=== PATIENT | female | born 1970 | race Caucasian/White ===

== ENCOUNTER → 2016-11-29 | Outpatient (CLI) | payer BC ==
[2016-11-29 15:09] LABS: Basophils # (A) 0.1 k/uL (0-0.2); Basophils % (A) 1 %; CHCM 34.3; Eosinophils # (A) 0.2 k/uL (0-0.7); Eosinophils % (A) 2 %; HCT 40.8 % (34.0-46.0); HDW 2.93; HGB 13.4 gm/dL (11.4-16.0); Luc # (Auto) 0.23; Luc % (Auto) 2; Lymphocytes # (A) 3.2 k/uL (1.0-4.8); Lymphocytes % (A) 29 %; MCH 29.7 pg (25.0-35.0); MCHC 32.8 g/dL (31.0-37.0); MCV 90.7 fL (80.0-100.0); Mean Platelet Volume 8.1; Monocytes # (A) 0.5 k/uL (0-1.0); Monocytes % (A) 5 %; Neutrophils # (A) 6.7 k/uL (1.3-7.7); Neutrophils % (A) 62 %; RDW 14.8 % (11.5-15.5); WBC 10.9 k/uL (3.8-10.6)
== END | disposition home or self-care (01) ==
LOC: LABPAT 14:50
PROVIDERS: ATTEND Orthopaedic Surgery
DX: Z01.812 Encounter for preprocedural laboratory examination (principal); M65.341 Trigger finger, right ring finger
CPT/HCPCS: 36415; 85025

== ENCOUNTER 2016-12-13 06:30 | Day surgery (SDC) | payer BC ==
[2016-12-11 12:00] VITALS: BMI 34.0
--- NOTE | 2016-12-12 22:19 | HP ---
HISTORY AND PHYSICAL DATE OF SURGERY: 12/13/2016 Cher Urrutia is a 46-year-old patient seen with symptomatic right ring finger trigger finger. We discussed treatment options. She elected to proceed with release A1 robert of the right ring finger. Consent was obtained. PAST MEDICAL HISTORY: 1. Asthma. 2. Hyperlipidemia. 3. Insulin-dependent diabetes. 4. Hypertension. PAST SURGICAL HISTORY: Hysterectomy. DAILY MEDICATIONS: 1. Albuterol. 2. Atorvastatin. 3. Novolin insulin. 4. Lisinopril. ALLERGIES: MORPHINE. SOCIAL HISTORY: Patient denies current tobacco use. PHYSICAL EVALUATION OF THE RIGHT HAND: There is tenderness along the A1 robert area of the right ring finger. There is clicking and catching with range of motion. There is no tenderness of the remaining A1 robert areas. She does have some limited range of motion of the digit. She has good perfusion and sensation distally. RADIOGRAPHS: Radiographs which were obtained of the right hand revealed mild osteoarthritic changes. IMPRESSION: Right ring finger trigger finger. PLAN: Release A1 robert, right ring finger. MMODL / IJN: [id number] /
[~2016-12-13 06:30] MED LIST: DEXAMETHASONE SOD PHOSPHATE 10 MG/ML 1 ML VIAL IV ONE; HYDROmorphone 1 MG/ML 1 ML SYRINGE IVP PRN; LACTATED RINGERS 1,000 ML IV SCH; MIDAZOLAM 2 MG/2 ML VIAL IV PRN; ONDANSETRON 4 MG/2 ML VIAL IVP ONE; SCOPOLAMINE 1.5MG/72HR PATCH TRANSDERM ONE; ceFAZolin 2 GM in SODIUM CHLORIDE 0.9% 100 ML IVPB ONE
[2016-12-13 06:54] VITALS: TEMP 97.7
[2016-12-13] MEDS ORDERED: LIDOCAINE 1% 20 ML VIAL (10MG/ML) FOR IV START INTRADERMA ONE (06:56)
[2016-12-13 07:01] LABS: Glucose,Whole Blood 248 mg/dL (75-99)
[2016-12-13] MEDS ORDERED: INSULIN LISPRO (humaLOG) 300 UNIT/3 ML VIAL SQ ONE (07:06)
[2016-12-13] MEDS ORDERED: BUPIVACAINE (PF) 0.25% 30 ML VIAL SQ ONE ×2 (07:20)
[2016-12-13] MEDS ORDERED: fentaNYL (PF) 50 MCG/ML 2 ML AMP ONE (07:24)
[2016-12-13] MEDS ORDERED: PROPOFOL 10 MG/ML 20 ML VIAL IV ONE (07:24)
[2016-12-13] MEDS ORDERED: MIDAZOLAM 2 MG/2 ML VIAL ONE (07:24)
--- NOTE | 2016-12-13 08:02 | P.OP ---
Date of Procedure: 12/13/16 Preoperative Diagnosis: Right ring finger trigger finger Postoperative Diagnosis: Same Procedure(s) Performed: Release A1 robert right ring finger Implants: Anesthesia: MAC, local Surgeon: Mickey Rose Estimated Blood Loss (ml): 0 Pathology: none sent Condition: stable Disposition: PACU Indications for Procedure: 46-year-old patient seen with a symptomatic right ring finger trigger finger. After having treatment options discussed, she elected to proceed with release A1 robert right ring finger. Operative Findings: She description of procedure Description of Procedure: The patient was taken to the operative suite. The patient received preoperative IV antibiotics. The patient underwent IV sedation by the department anesthesia. A well-padded tourniquet was placed proximal right upper extremity. The right upper extremity was now prepped and draped in the normal sterile orthopedic fashion. I infiltrated the proposed incision site with local analgesic. Once sufficient local analgesia was noted the extremity was elevated and tourniquet insufflated to 250. I now made an incision over the area A1 robert right ring finger. Dissection was taken down to the robert. It was released without difficulty. There was complete release of the A1 robert and good excursion of the tendon without any obvious impingement. The skin margins were proximal nylon suture. Sterile dressings were applied. The tourniquet was released with immediate capillary refill the entire hand and all digits noted. The patient was awakened and transferred to recovery in stable condition.
[2016-12-13 08:05] VITALS: RESP 18
[2016-12-13 08:31] VITALS: BP 104/63; PULSE 80
[2016-12-13 08:39] LABS: Glucose,Whole Blood 238 mg/dL (75-99)
== END 2016-12-13 08:56 | disposition home or self-care (01) ==
LOC: OR 06:30
PROVIDERS: ATTEND Orthopaedic Surgery
DX: M65.341 Trigger finger, right ring finger (principal); J45.909 Unspecified asthma, uncomplicated; E78.5 Hyperlipidemia, unspecified; E11.9 Type 2 diabetes mellitus without complications; I10 Essential (primary) hypertension; Z90.710 Acquired absence of both cervix and uterus; Z79.899 Other long term (current) drug therapy; Z79.4 Long term (current) use of insulin; Z88.5 Allergy status to narcotic agent
CPT/HCPCS: 26055; J2250; J1100; J0690; J2405; J3010; J2704

== ENCOUNTER → 2017-12-05 | Outpatient (CLI) | payer BC ==
--- NOTE | 2017-12-10 11:10 | MM ---
Reason for exam: screening (asymptomatic). Last mammogram was performed 3 years and 4 months ago. History: Patient is postmenopausal and has history of endometrial cancer at age 39. Family history of breast cancer in 2 maternal aunts at age 50. Chemotherapy. Physical Findings: A clinical breast exam by your physician is recommended on an annual basis and results should be correlated with mammographic findings. MG 3D Screening Mammo W/Cad Bilateral CC and MLO view(s) were taken. Prior study comparison: August 11, 2014, bilateral MG screening mammo w CAD. March 26, 2013, bilateral digital screening mammo w/CAD. There are scattered fibroglandular densities. There is chronic nodularity in the right breast. No significant changes when compared with prior studies. ASSESSMENT: Negative, BI-RAD 1 RECOMMENDATION: Routine screening mammogram of both breasts in 1 year.
== END | disposition home or self-care (01) ==
LOC: RADMAMWWP 12:55
PROVIDERS: ATTEND Obstetrics & Gynecology
DX: Z12.31 Encounter for screening mammogram for malignant neoplasm of breast (principal)
CPT/HCPCS: 77063; 77067

== ENCOUNTER → 2019-02-06 | Outpatient (CLI) | payer BC ==
--- NOTE | 2019-02-06 11:08 | XR ---
EXAMINATION TYPE: XR hand limited bilateral DATE OF EXAM: 02/06/2019 COMPARISON: NONE HISTORY: Pain TECHNIQUE: Three views each hand is submitted. FINDINGS: Left ankle there is diffuse osteopenia. Mild narrowing of the PIP and DIP joint of the fourth and fif th digits and MCP joint of the fifth digit. Benign-appearing cyst involving the lunate bone. Mild fani rowing of the radiocarpal joint. No erosive changes. Right hand: Mild narrowing of the radiocarpal joint. Osseous structures intact. No erosive changes. IMPRESSION: 1. Mild arthropathy bilaterally with no erosive changes or acute fracture.
== END | disposition home or self-care (01) ==
LOC: RADXRMAIN 10:46
PROVIDERS: ATTEND Orthopaedic Surgery
DX: M19.041 Primary osteoarthritis, right hand (principal); M19.042 Primary osteoarthritis, left hand

== ENCOUNTER → 2019-02-23 | Outpatient (CLI) | payer BC ==
[2019-02-23 11:41] LABS: Basophils # (A) 0.1 k/uL (0-0.2); Basophils % (A) 1 %; Eosinophils # (A) 0.3 k/uL (0-0.7); Eosinophils % (A) 2 %; HCT 40.4 % (34.0-46.0); HGB 13.7 gm/dL (11.4-16.0); Lymphocytes % (A) 25 %; MCH 29.3 pg (25.0-35.0); MCHC 33.9 g/dL (31.0-37.0); MCV 86.5 fL (80.0-100.0); Mean Platelet Volume 5.7; Monocytes # (A) 0.5 k/uL (0-1.0); Monocytes % (A) 4 %; Neutrophils # (A) 7.9 k/uL (1.3-7.7); Neutrophils % (A) 66 %; Platelet Count 263 k/uL (150-450); RBC 4.67 m/uL (3.80-5.40); WBC 11.9 k/uL (3.8-10.6)
[2019-02-23 11:43] LABS: Potassium 4.5 mmol/L (3.5-5.1)
== END | disposition home or self-care (01) ==
LOC: LABPAT 10:32
PROVIDERS: ATTEND Orthopaedic Surgery
DX: Z01.812 Encounter for preprocedural laboratory examination (principal); M65.342 Trigger finger, left ring finger
CPT/HCPCS: 36415; 80051; 85025

== ENCOUNTER 2019-03-18 06:27 | Day surgery (SDC) | payer BC ==
[2019-03-17 08:59] VITALS: BMI 34.0
--- NOTE | 2019-03-17 18:30 | HP ---
HISTORY AND PHYSICAL REASON FOR ADMISSION: Surgery is scheduled for 03/18/2019. HISTORY OF PRESENT ILLNESS: Cher Urrutia is a 48-year-old patient seen with symptomatic left ring finger trigger finger. We discussed options. She elected to proceed with release A1 robert, left ring finger. Consent was obtained. PAST MEDICAL HISTORY: [id number] diabetes. Gastroesophageal reflux disease. Hypertension. PAST SURGICAL HISTORY: Hysterectomy. MEDICATIONS: Atorvastatin, insulin, lisinopril. ALLERGIES: MORPHINE. SOCIAL HISTORY: She denies current tobacco use. PHYSICAL EXAMINATION: Physical evaluation of the left hand: She is tender along the A1 robert of the ring finger. There is clicking and catching with range of motion there. She has good perfusion sensation distally. Carpal compression, carpal Tinel's are negative. RADIOGRAPHS: Radiographs of the left hand reveals some osteoarthritic changes. IMPRESSION: 1. Left ring finger trigger finger. 2. Insulin-dependent diabetes. 3. Hypertension. PLAN: Release A1 robert, left ring finger. Surgery is scheduled for 03/18/2019. MMODL / IJN: [id number] /
[~2019-03-18 06:27] MED LIST changes: +HYDROmorphone 0.5 MG/0.5 ML SYRINGE IVP PRN; -HYDROmorphone 1 MG/ML 1 ML SYRINGE IVP PRN; +LIDOCAINE 1% 20 ML VIAL (10MG/ML) FOR IV START INTRADERMA PRN; -ceFAZolin 2 GM in SODIUM CHLORIDE 0.9% 100 ML IVPB ONE
[2019-03-18 06:51] VITALS: RESP 16; TEMP 97.8
[2019-03-18 06:56] LABS: Glucose,Whole Blood 239 mg/dL (75-99)
[2019-03-18] MEDS ORDERED: INSULIN ASPART (NovoLOG) 100 UNIT/ML VIAL SQ ONE (07:08)
[2019-03-18] MEDS ORDERED: PROPOFOL 10 MG/ML 20 ML VIAL IV ONE (07:26)
[2019-03-18] MEDS ORDERED: fentaNYL (PF) 50 MCG/ML 2 ML AMP ONE (07:26)
[2019-03-18] MEDS ORDERED: MIDAZOLAM 2 MG/2 ML VIAL ONE (07:26)
[2019-03-18] MEDS ORDERED: BUPIVACAINE (PF) 0.25% 30 ML VIAL SQ ONE (07:44)
--- NOTE | 2019-03-18 08:06 | P.OP ---
Date of Procedure: 03/18/19 Preoperative Diagnosis: Left ring finger trigger finger Postoperative Diagnosis: Left ring finger trigger finger Procedure(s) Performed: Release A1 robert left ring finger Anesthesia: MAC, local Surgeon: Mickey Rose Estimated Blood Loss (ml): 0 Pathology: none sent Condition: stable Disposition: PACU Indications for Procedure: 48-year-old patient seen with symptomatic left ring finger trigger finger. We discussed options. She elected to proceed with release A1 robert left ring finger. Operative Findings: See description of procedure Description of Procedure: Patient was taken to the operative suite. The patient received preoperative IV antibiotics. Well-padded tourniquet placed proximal left upper extremity. Left upper extremity was prepped and draped in the normal sterile orthopedic fashion. The proposed incision area was infiltrated with 1% Marcaine totaling 7 mL. Once sufficient local analgesia was noted the extremity was elevated and tourniquet insufflated to 250. An incision measuring approximately 1 cm was now made in the area 1 robert left ring finger. Careful dissection taken down to the A1 robert. They will portal was now released. There was good excursion of the tendon with no impingement or triggering/catching. There was good hemostasis. The skin margins were approximated nylon suture. Sterile dressings were applied. The tourniquet was released and immediate capillary refill the entire extremity and digits noted. The patient was now awakened, transferred to a bed and recovery stable condition.
[2019-03-18 08:37] VITALS: BP 109/75; PULSE 92
== END 2019-03-18 08:49 | disposition home or self-care (01) ==
LOC: OR 06:27
PROVIDERS: ATTEND Orthopaedic Surgery
DX: M65.342 Trigger finger, left ring finger (principal); E11.9 Type 2 diabetes mellitus without complications; I10 Essential (primary) hypertension; K21.9 Gastro-esophageal reflux disease without esophagitis; F17.290 Nicotine dependence, other tobacco product, uncomplicated; Z88.5 Allergy status to narcotic agent; Z88.2 Allergy status to sulfonamides; Z79.899 Other long term (current) drug therapy; Z79.4 Long term (current) use of insulin; Z90.710 Acquired absence of both cervix and uterus; Z98.890 Other specified postprocedural states; Z85.9 Personal history of malignant neoplasm, unspecified
CPT/HCPCS: 26055; J2250; J1100; J2405; J0690; J3010; J2704

== ENCOUNTER → 2019-05-28 | Outpatient (CLI) | payer BC ==
[2019-05-28 17:28] LABS: Basophils # (A) 0.1 k/uL (0-0.2); Basophils % (A) 1 %; Eosinophils # (A) 0.3 k/uL (0-0.7); Eosinophils % (A) 3 %; HCT 40.8 % (34.0-46.0); HGB 13.5 gm/dL (11.4-16.0); Lymphocytes # (A) 2.9 k/uL (1.0-4.8); Lymphocytes % (A) 22 %; MCH 28.3 pg (25.0-35.0); MCHC 33.1 g/dL (31.0-37.0); MCV 85.5 fL (80.0-100.0); Mean Platelet Volume 7.4; Monocytes # (A) 0.6 k/uL (0-1.0); Monocytes % (A) 4 %; Neutrophils # (A) 9.1 k/uL (1.3-7.7); Neutrophils % (A) 69 %; Platelet Count 260 k/uL (150-450); RBC 4.77 m/uL (3.80-5.40); RDW 13.4 % (11.5-15.5); WBC 13.2 k/uL (3.8-10.6)
== END | disposition home or self-care (01) ==
LOC: LABPAT 16:25
PROVIDERS: ATTEND Orthopaedic Surgery
DX: Z01.812 Encounter for preprocedural laboratory examination (principal); G56.02 Carpal tunnel syndrome, left upper limb
CPT/HCPCS: 85025

== ENCOUNTER 2019-06-04 11:53 | Day surgery (SDC) | payer BC ==
[2019-06-02 16:25] VITALS: BMI 34.0
--- NOTE | 2019-06-03 15:22 | HP ---
HISTORY AND PHYSICAL DATE OF SURGERY: 06/04/2019 Cher Urrutia is a 49-year-old patient seen with symptomatic left carpal tunnel syndrome. We discussed options. She elected to proceed with decompression of the left median nerve. Consent regarding the procedure was obtained. PAST MEDICAL HISTORY: Asthma, hyperlipidemia, insulin-dependent diabetes, hypertension. PAST SURGICAL HISTORY: Hysterectomy, trigger finger release. DAILY MEDICATIONS: Albuterol, atorvastatin, insulin, lisinopril. ALLERGIES: MORPHINE WHICH CAUSES GASTROINTESTINAL UPSET. SOCIAL HISTORY: She denies tobacco use. PHYSICAL EXAMINATION OF THE LEFT HAND: She has a positive carpal compression, carpal Tinel's causing numbness and tingling throughout the median nerve distribution. She has no tenderness along the A1 robert sites. There is good perfusion distally. There is a good radial pulse present. She does have some decreased sensation throughout the median nerve distribution. IMPRESSION: 1. Left carpal tunnel syndrome. 2. Hypertension. 3. Hyperlipidemia. 4. Insulin-dependent diabetes. PLAN: Decompression left medial nerve. MMODL / IJN: [id number] /
[~2019-06-04 11:53] MED LIST changes: -MIDAZOLAM 2 MG/2 ML VIAL IV PRN; -SCOPOLAMINE 1.5MG/72HR PATCH TRANSDERM ONE
[2019-06-04 12:28] LABS: Glucose,Whole Blood 321 mg/dL (75-99)
[2019-06-04 12:35] VITALS: RESP 16; TEMP 98.1
[2019-06-04] MEDS ORDERED: INSULIN ASPART (NovoLOG) 100 UNIT/ML VIAL SQ ONE (12:40)
[2019-06-04] MEDS ORDERED: KETAMINE 10 MG/ML 20 ML VIAL ONE (13:03)
[2019-06-04] MEDS ORDERED: MIDAZOLAM 2 MG/2 ML VIAL ONE (13:03)
[2019-06-04] MEDS ORDERED: PROPOFOL 10 MG/ML 20 ML VIAL IV ONE (13:03)
[2019-06-04] MEDS ORDERED: fentaNYL (PF) 50 MCG/ML 2 ML AMP ONE (13:03)
[2019-06-04] MEDS ORDERED: KETOROLAC 30 MG/ML 1 ML VIAL ONE (13:03)
[2019-06-04] MEDS ORDERED: BUPIVACAINE (PF) 0.25% 30 ML VIAL SQ ONE (13:08)
[2019-06-04] MEDS ORDERED: LACTATED RINGERS 1,000 ML IV ONE (13:22)
--- NOTE | 2019-06-04 13:37 | P.OP ---
Date of Procedure: 06/04/19 Preoperative Diagnosis: Left carpal tunnel syndrome Postoperative Diagnosis: Left carpal tunnel syndrome Procedure(s) Performed: Decompression left median nerve Anesthesia: MAC, local Surgeon: Mickey Rose Estimated Blood Loss (ml): 1 Pathology: none sent Condition: stable Disposition: PACU Indications for Procedure: 49-year-old patient seen with symptomatic left carpal tunnel syndrome. After having treatment options discussed, she elected to proceed with decompression left median nerve. Operative Findings: See description of procedure Description of Procedure: The patient was taken to the operative suite. The patient received preoperative IV antibiotics. A well-padded tourniquet was placed on the proximal left upper extremity. The left upper extremity was prepped and draped in the normal sterile orthopedic fashion. I infiltrated the proposed incision site with 10 mL quarter percent plain Marcaine. Once sufficient local analgesia was noted the extremity was elevated and the tourniquet was insufflated to 250. I made an incision beginning at the distal volar wrist crease extending distally approximately 3 cm in line with the fourth metacarpal sharply through skin. I dissected through the palmar fascia to the transverse carpal ligament. I made small incisions the central portion of transcarpal ligament. I now completed the release proximally and distally with blunt Metzenbaums. There was complete release of the transverse carpal ligament. There was good decompression of the median nerve. We had good hemostasis. The wound was irrigated. The skin margins were proximal nylon suture. I applied sterile dressings. The tourniquet was released with immediate capillary refill of all digits noted. The patient was then transferred to a bed and then recovery stable condition.
[2019-06-04 13:58] LABS: Glucose,Whole Blood 262 mg/dL (75-99)
[2019-06-04 14:34] VITALS: BP 136/86; PULSE 97
== END 2019-06-04 14:55 | disposition home or self-care (01) ==
LOC: OR 11:53
PROVIDERS: ATTEND Orthopaedic Surgery
DX: G56.02 Carpal tunnel syndrome, left upper limb (principal); I10 Essential (primary) hypertension; E11.9 Type 2 diabetes mellitus without complications; J45.909 Unspecified asthma, uncomplicated; E78.5 Hyperlipidemia, unspecified; Z79.4 Long term (current) use of insulin; Z79.899 Other long term (current) drug therapy; Z88.5 Allergy status to narcotic agent; Z90.710 Acquired absence of both cervix and uterus; Z98.890 Other specified postprocedural states
CPT/HCPCS: 64721; J2250; J1100; J2405; J0690; J3010; J1885; J2704

== ENCOUNTER → 2021-01-05 | Outpatient (CLI) | payer BC ==
--- NOTE | 2021-01-09 10:54 | MM ---
Reason for exam: screening (asymptomatic). Last mammogram was performed 3 years and 1 month ago. History: Patient is postmenopausal and has history of endometrial cancer at age 39. Family history of breast cancer in 2 maternal aunts at age 50. Chemotherapy. Physical Findings: A clinical breast exam by your physician is recommended on an annual basis and results should be correlated with mammographic findings. MG 3D Screening Mammo W/Cad Bilateral CC and MLO view(s) were taken. Prior study comparison: December 05, 2017, bilateral MG 3d screening mammo w/cad. August 11, 2014, bilateral MG screening mammo w CAD. Finding: There are four typically benign coarse heterogeneous, grouped/clustered calcifications in the left breast. New finding since December 05, 2017 and August 11, 2014. ASSESSMENT: Probably benign, BI-RAD 3 RECOMMENDATION: Follow-up diagnostic mammogram of the left breast in 6 months.
== END | disposition home or self-care (01) ==
LOC: RADMAMWWP 13:32
PROVIDERS: ATTEND Obstetrics & Gynecology
DX: Z12.31 Encounter for screening mammogram for malignant neoplasm of breast (principal); Z78.0 Asymptomatic menopausal state; Z80.3 Family history of malignant neoplasm of breast
CPT/HCPCS: 77063; 77067

== ENCOUNTER → 2021-07-06 | Outpatient (CLI) | payer BC ==
--- NOTE | 2021-07-17 13:17 | MM ---
Reason for exam: additional evaluation requested from prior study. Last mammogram was performed 6 months ago. History: Patient is postmenopausal and has history of endometrial cancer at age 39. Family history of breast cancer in 2 maternal aunts at age 50. Chemotherapy. Radiation therapy. Physical Findings: A clinical breast exam by your physician is recommended on an annual basis and results should be correlated with mammographic findings. MG 3D Diag Mammo W/Cad LT CC and MLO view(s) were taken of the left breast. Prior study comparison: January 05, 2021, bilateral MG 3d screening mammo w/cad. December 05, 2017, bilateral MG 3d screening mammo w/cad. There are scattered fibroglandular densities. 3 o'clock central left breast microcalcifications appear even more course and have further increased. Likely early dystrophic calcifications. Ongoing follow up recommended. ASSESSMENT: Probably benign, BI-RAD 3 RECOMMENDATION: Follow-up diagnostic mammogram of both breasts in 6 months.
== END | disposition home or self-care (01) ==
LOC: RADMAMWWP 13:18
PROVIDERS: ATTEND Obstetrics & Gynecology
DX: R92.8 Other abnormal and inconclusive findings on diagnostic imaging of breast (principal); Z78.0 Asymptomatic menopausal state; Z80.3 Family history of malignant neoplasm of breast; Z92.3 Personal history of irradiation
CPT/HCPCS: 77061; 77065

== ENCOUNTER → 2022-02-13 | Outpatient (CLI) | payer BC ==
--- NOTE | 2022-02-13 13:28 | MM ---
Reason for Exam: Follow-up at short interval from prior study. Last mammogram was performed 1 year(s) and 2 month(s) ago. Indicated Problems: Pain of the left side (Global) for 4 Month(s). Patient History: Menarche at age 9. First Full-Term at age 20. Left ovary removed at age 39. Right ovary removed at age 39. Hysterectomy at age 39. Postmenopausal. Endometrial cancer, age 39. Patient used Hormonal Contraceptives for 12 years. Radiation Therapy. Chemotherapy. Maternal aunt had breast cancer, age 50. Maternal aunt had breast cancer, age 50. Risk Values: Ignacia 5 year model risk: 1.0%. NCI Lifetime model risk: 8.5%. Prior Study Comparison: 12/29/2010 Bilateral Diagnostic Mammogram, [facility]. 08/11/2014 Bilateral Screening Mammogram, [facility]. 12/05/2017 Bilateral Screening Mammogram, [facility]. 01/05/2021 Bilateral Screening Mammogram, [facility]. 07/06/2021 Left Diagnostic Mammogram, [facility]. Tissue Density: There are scattered fibroglandular densities. Findings: Analyzed By CAD. Pattern appears symmetrical and stable. There are increasing benign appearing grouped coarse calcifications within the lateral 3:00 posterior position left breast. A marker is placed over the location of the patient's discomfort in the left breast which is lateral mid left breast. Overall Assessment: Benign, BI-RAD 2 Management: Screening Mammogram of both breasts in 1 year. A clinical breast exam by your physician is recommended on an annual basis and results should be correlated with mammographic findings. This exam should not preclude additional follow-up of suspicious palpable abnormalities. Results were given to the patient verbally at the time of exam. Electronically signed and approved by: Gerry Reilly D.O. Radiologis
== END | disposition home or self-care (01) ==
LOC: RADMAMWWP 12:49
PROVIDERS: ATTEND Physician Assistant
DX: R92.8 Other abnormal and inconclusive findings on diagnostic imaging of breast (principal); Z80.3 Family history of malignant neoplasm of breast; Z78.0 Asymptomatic menopausal state
CPT/HCPCS: 77062; 77066

== ENCOUNTER 2022-03-28 09:04 | Inpatient (IN) | payer BC ==
[2022-03-28] MEDS ORDERED: HYDROmorphone 1 MG/ML 1 ML SYRINGE IVP STA (09:58)
--- NOTE | 2022-03-28 10:01 | ED ---
General Adult HPI - General Chief complaint: Abdominal Pain Stated complaint: Abd & Back Pain, Cancer Pt. Time Seen by Provider: 03/28/22 09:26 Source: patient Mode of arrival: ambulatory Limitations: no limitations - History of Present Illness Initial comments: Dictation was produced using [employer] dictation software. please excuse any grammatical, word or spelling errors. Chief Complaint: 51-year-old female presents to the emergency department for abdominal pain, nausea and vomiting History of Present Illness: Just 51-year-old female she has past medical history of cancer. Patient is history of cancer is being treated with oral chemotherapy pills. Her oncologist is based out of [facility]. For the last 2-3 days she's been having abdominal pain. She states that it is epigastric in location. States intermittent. Cells associated with nausea and vomiting. Patient has any fever or constitutional symptoms. She recently had a computed tomography scan that showed a new mass in her right abdomen. States that her emesis is bilious. Nonbloody The ROS documented in this emergency department record has been reviewed and confirmed by me. Those systems with pertinent positive or negative responses have been documented in the HPI. All other systems are other negative and/or noncontributory. PHYSICAL EXAM: General Impression: Alert and oriented x3, not in acute distress HEENT: Normocephalic atraumatic, extra-ocular movements intact, pupils equal and reactive to light bilaterally, mucous membranes moist. Cardiovascular: Heart regular rate and rhythm Chest: Able to complete full sentences, no retractions, no tachypnea Abdomen: abdomen soft, mild palpatory tenderness to the epigastrium, non-disten ded, no organomegaly Musculoskeletal: Pulses present and equal in all extremities, no peripheral fuentes ma Motor: no focal deficits noted Neurological: CN II-XII grossly intact, no focal motor or sensory deficits noted Skin: Intact with no visualized rashes Psych: Normal affect and mood ED course: 51-year-old female past medical history of cancer recently diagnosed abdominal mass presents to the ER for new onset abdominal pain, nausea and vomiting. Suspicious for bowel obstruction. Signs upon arrival are within acceptable limits. Nursing notes and chart review was performed My EKG interpretation: Ventricular rate 96, sinus rhythm,. Interval 145, QRS 82, QTC 393. No NV prolongation, no QTC prolongation, no ST or T-wave changes noted. Overall, this EKG is unremarkable Laboratory evaluation obtained showed leukocytosis 17.6. Coag panel is negative. Metabolic panel was within acceptable limits. Urinalysis is positive for 3+ ketones. Likely some degree of ketoacidosis from dehydration. Computed tomography scan of the abdomen and pelvis shows cholelithiasis with mild gallbladder wall thickening. This appeared to be gallbladder distention as well. Suspicious for acute cholecystitis. Ultrasound was ordered showing cholelithiasis with gallbladder wall at the upper limits of normal. Given patient's white count with epigastric and right upper quadrant pain there is concern for acute cholecystitis. Case discussed with Dr. Alcantara request the patient be admitted to medicine with IV antibiotics and Gen. surgery on consult. - Related Data Home Medications Medication Instructions Recorded Confirmed Insulin Aspart [NovoLOG Flexpen] 5 - 10 units SQ AC-TID 06/02/19 03/28/22 Atorvastatin [Lipitor] 20 mg PO PC-SUPPER 03/28/22 03/28/22 Cholecalciferol [Vitamin D3 (25 50 mcg PO DAILY 03/28/22 03/28/22 Mcg = 1000 Iu)] Empagliflozin [Jardiance] 25 mg PO DAILY 03/28/22 03/28/22 Insulin Glargine,Hum.rec.anlog 20 units SQ HS 03/28/22 03/28/22 [Lantus Solostar Pen] Lenvatinib Mesylate [Lenvima] 10 mg PO DAILY 03/28/22 03/28/22 Omeprazole [PriLOSEC] 20 mg PO DAILY 03/28/22 03/28/22 Pioglitazone [Actos] 15 mg PO DAILY 03/28/22 03/28/22 lisinopriL [Prinivil] 20 mg PO DAILY 03/28/22 03/28/22 Allergies Allergy/AdvReac Type Severity Reaction Status Date / Time diatrizoate meglumine Allergy Diarrhea Verified 03/28/22 13:08 (FROM GASTROGRAPHIN) morphine Allergy Nausea & Verified 03/28/22 13:08 Vomiting Blue tape Allergy blisters Uncoded 03/28/22 09:25 where tape applied to skin Review of Systems ROS Statement: Those systems with pertinent positive or pertinent negative responses have been documented in the HPI. ROS Other: All systems not noted in ROS Statement are negative. 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 THYROID NODULES. SHOULDER PROB, RT WORSE. RT RING TRIGGER FINGER. History of Any Multi-Drug Resistant Organisms: None Reported Past Surgical History: Section, Hernia Repair, Hysterectomy, Tonsillectomy Additional Past Surgical History / Comment(s): Nixon Trigger thumb surgery. Radical hysterectomy, rt ring finger,rt middle finger,lt pointer finger 03/25 Past Anesthesia/Blood Transfusion Reactions: No Reported Reaction, Family Hi story of Problems w/ Anesthesia, Motion Sickness Additional Past Anesthesia/Blood Transfusion Reaction / Comment(s): SIBLINGS HAVE PONV. pt claustrophobic. Past Psychological History: Anxiety, Depression Smoking Status: Never smoker Past Alcohol Use History: Occasional Past Drug Use History: None Reported - Past Family History Mother Family Medical History: Diabetes Mellitus Additional Family Medical History / Comment(s): heart valve replaced Father Family Medical History: Cancer Additional Family Medical History / Comment(s): prostate cancer General Exam Limitations: no limitations Course Vital Signs 03/28/22 03/28/22 03/28/22 09:22 10:05 13:16 Temperature 98.3 F Pulse Rate 104 H 110 H 105 H Respiratory 22 18 16 Rate Blood Pressure 132/79 150/95 146/92 O2 Sat by Pulse 91 L 92 L 93 L Oximetry Medical Decision Making - Lab Data Result diagrams: 03/28/22 09:50 03/28/22 09:50 Lab Results 03/28/22 03/28/22 03/28/22 Range/Units 09:50 09:50 09:50 WBC 17.6 H (3.8-10.6) k/uL RBC 5.23 (3.80-5.40) m/uL Hgb 16.0 (11.4-16.0) gm/dL Hct 47.1 H (34.0-46.0) % MCV 90.0 (80.0-100.0) fL MCH 30.6 (25.0-35.0) pg MCHC 34.0 (31.0-37.0) g/dL RDW 14.3 (11.5-15.5) % Plt Count 167 (150-450) k/uL MPV 8.4 Neutrophils % 89 % Lymphocytes % 5 % Monocytes % 4 % Eosinophils % 1 % Basophils % 0 % Neutrophils # 15.6 H (1.3-7.7) k/uL Lymphocytes # 0.9 L (1.0-4.8) k/uL Monocytes # 0.7 (0-1.0) k/uL Eosinophils # 0.1 (0-0.7) k/uL Basophils # 0.1 (0-0.2) k/uL PT 9.9 (9.0-12.0) sec INR 0.9 (<1.2) APTT 25.8 (22.0-30.0) sec Sodium (137-145) mmol/L Potassium (3.5-5.1) mmol/L Chloride (98-107) mmol/L Carbon Dioxide (22-30) mmol/L Anion Gap mmol/L BUN (7-17) mg/dL Creatinine (0.52-1.04) mg/dL Est GFR (CKD-EPI)AfAm (>60 ml/min/1.73 sqM) Est GFR (CKD-EPI)NonAf (>60 ml/min/1.73 sqM) Glucose (74-99) mg/dL Plasma Lactic Acid Alec (0.7-2.0) mmol/L Calcium (8.4-10.2) mg/dL Total Bilirubin (0.2-1.3) mg/dL AST (14-36) U/L ALT (4-34) U/L Alkaline Phosphatase (38-126) U/L Total Protein (6.3-8.2) g/dL Albumin (3.5-5.0) g/dL Lipase (23-300) U/L Urine Color Light Yellow Urine Appearance Clear (Clear) Urine pH 6.0 (5.0-8.0) Ur Specific [place] 1.035 (1.001-1.035) Urine Protein Trace H (Negative) Urine Glucose (UA) 4+ H (Negative) Urine Ketones 3+ H (Negative) Urine Blood Negative (Negative) Urine Nitrite Negative (Negative) Urine Bilirubin Negative (Negative) Urine Urobilinogen <2.0 (<2.0) mg/dL Ur Leukocyte Esterase Negative (Negative) 03/28/22 03/28/22 Range/Units 09:50 09:50 WBC (3.8-10.6) k/uL RBC (3.80-5.40) m/uL Hgb (11.4-16.0) gm/dL Hct (34.0-46.0) % MCV (80.0-100.0) fL MCH (25.0-35.0) pg MCHC (31.0-37.0) g/dL RDW (11.5-15.5) % Plt Count (150-450) k/uL MPV Neutrophils % % Lymphocytes % % Monocytes % % Eosinophils % % Basophils % % Neutrophils # (1.3-7.7) k/uL Lymphocytes # (1.0-4.8) k/uL Monocytes # (0-1.0) k/uL Eosinophils # (0-0.7) k/uL Basophils # (0-0.2) k/uL PT (9.0-12.0) sec INR (<1.2) APTT (22.0-30.0) sec Sodium 135 L (137-145) mmol/L Potassium 4.6 (3.5-5.1) mmol/L Chloride 101 (98-107) mmol/L Carbon Dioxide 23 (22-30) mmol/L Anion Gap 11 mmol/L BUN 13 (7-17) mg/dL Creatinine 0.49 L (0.52-1.04) mg/dL Est GFR (CKD-EPI)AfAm >90 (>60 ml/min/1.73 sqM) Est GFR (CKD-EPI)NonAf >90 (>60 ml/min/1.73 sqM) Glucose 127 H (74-99) mg/dL Plasma Lactic Acid Alec 1.3 (0.7-2.0) mmol/L Calcium 9.0 (8.4-10.2) mg/dL Total Bilirubin 0.9 (0.2-1.3) mg/dL AST 35 (14-36) U/L ALT 22 (4-34) U/L Alkaline Phosphatase 105 (38-126) U/L Total Protein 7.5 (6.3-8.2) g/dL Albumin 4.5 (3.5-5.0) g/dL Lipase 24 (23-300) U/L Urine Color Urine Appearance (Clear) Urine pH (5.0-8.0) Ur Specific [place] (1.001-1.035) Urine Protein (Negative) Urine Glucose (UA) (Negative) Urine Ketones (Negative) Urine Blood (Negative) Urine Nitrite (Negative) Urine Bilirubin (Negative) Urine Urobilinogen (<2.0) mg/dL Ur Leukocyte Esterase (Negative) Disposition Clinical Impression: Acute cholecystitis Disposition: ADMITTED IP TO THIS HOSP Condition: Fair Referrals: Damien Rodriguez MD [Primary Care Provider] - 1-2 days Decision Time: 13:32
[2022-03-28 10:22] LABS: Appearance,Urine Clear (Clear); Bilirubin,Urine Negative (Negative); Blood,Urine Negative (Negative); Color,Urine Light Yellow; Glucose,Urine (UA) 4+ (Negative); Leukocyte Esterase,Urine Negative (Negative); Nitrite,Urine Negative (Negative); Protein,Urine Trace (Negative); Specific Gravity,Urine 1.035 (1.001-1.035); Urobilinogen,Urine <2.0 mg/dL (<2.0)
[2022-03-28 10:27] LABS: Basophils # (A) 0.1 k/uL (0-0.2); Basophils % (A) 0 %; Eosinophils # (A) 0.1 k/uL (0-0.7); Eosinophils % (A) 1 %; HCT 47.1 % (34.0-46.0); Lymphocytes # (A) 0.9 k/uL (1.0-4.8); Lymphocytes % (A) 5 %; MCH 30.6 pg (25.0-35.0); Mean Platelet Volume 8.4; Monocytes # (A) 0.7 k/uL (0-1.0); Monocytes % (A) 4 %; Neutrophils # (A) 15.6 k/uL (1.3-7.7); Neutrophils % (A) 89 %; Platelet Count 167 k/uL (150-450); RBC 5.23 m/uL (3.80-5.40); RDW 14.3 % (11.5-15.5); WBC 17.6 k/uL (3.8-10.6)
[2022-03-28 10:28] LABS: ALT 22 U/L (4-34); AST 35 U/L (14-36); African American GFR (CKD) >90 (>60 ml/min/1.73 sqM); Albumin 4.5 g/dL (3.5-5.0); Alkaline Phosphatase 105 U/L (38-126); Anion Gap 11 mmol/L; Blood Urea Nitrogen 13 mg/dL (7-17); Carbon Dioxide 23 mmol/L (22-30); Chloride 101 mmol/L (98-107); Glucose 127 mg/dL (74-99); Lipase 24 U/L (23-300); Non-African American GFR(CKD) >90 (>60 ml/min/1.73 sqM); Potassium 4.6 mmol/L (3.5-5.1); Sodium 135 mmol/L (137-145); Total Bilirubin 0.9 mg/dL (0.2-1.3); Total Protein 7.5 g/dL (6.3-8.2)
[2022-03-28 10:36] LABS: INR 0.9 (<1.2); Partial Thromboplastin Time 25.8 sec (22.0-30.0); Prothrombin Time 9.9 sec (9.0-12.0)
[2022-03-28] MEDS ORDERED: ONDANSETRON 4 MG/2 ML VIAL IVP STA (10:58)
--- NOTE | 2022-03-28 11:18 | CT ---
EXAMINATION TYPE: CT abdomen pelvis w con DATE OF EXAM: 03/28/2022 COMPARISON: 11/25/2014 HISTORY: Abdominal and back pain with vomiting CT DLP: 1061.9 mGycm CONTRAST: CT scan of the abdomen and pelvis is performed without Oral Contrast and with IV Contrast, patient in jected with 100 ml mL of Isovue 300. FINDINGS: LUNG BASES-: No visible nodule. No infiltrate. LIVER/GB: There is evidence of cholelithiasis. Mild gallbladder wall thickening. Gallbladder distenti on at 8.3 cm. Mild stranding adjacent to the gallbladder seen best on coronal image 50 sequence 202. No space occupying hepatic lesion. Biliary tree is of normal caliber. PANCREAS: No inflammation. No distinct mass. SPLEEN: No splenic enlargement. No lesion seen. ADRENALS: No nodule. No thickening. KIDNEYS/BLADDER: No hydronephrosis. No nephrolithiasis. No distinct renal mass. Urinary bladder g rossly unremarkable. BOWEL: Normal appendix. Thickened proximal jejunal loops which are mildly distended however not dilat ed measuring up to 2.8 cm. The findings could reflect enteritis. Normalization of the distal jejunum and ileum. The colon is of normal caliber. GENITAL ORGANS: No gross abnormality. LYMPH NODES: No greater than 1cm abdominal or pelvic lymph nodes are appreciated. AORTA: No significant abnormality. OSSEOUS STRUCTURES: No significant abnormality is seen. OTHER: IVC filter is noted to be in place. IMPRESSION: 1. Correlate for acute cholecystitis. 2. Jejunal enteritis is not excluded.
[2022-03-28 11:49] LABS: Ketones,Urine 3+ (Negative)
--- NOTE | 2022-03-28 12:46 | US ---
EXAMINATION TYPE: US gallbladder DATE OF EXAM: 03/28/2022 COMPARISON: CT CLINICAL HISTORY: epigastric pain. Epigastric pain, history of hernia surgery. TECHNIQUE: Multiple sonographic images of the right upper quadrant are obtained. FINDINGS: EXAM MEASUREMENTS: Liver Length: 12.9 cm Gallbladder Wall: 0.31 cm CBD: 0.53 cm Right Kidney: 10.8 x 5.5 x 5.5 cm COUTURIERE NOTES: Exam is limited due to great amount of bowel gas. Pancreas: Not well seen. Liver: Limited. Appears coarse. Gallbladder: Wall measures upper limits. Multiple hyperechoic foci seen within the gallbladder. Large st: 1.1 x 1.1 x 0.6 cm. Evidence for sonographic Mack's sign: No CBD: Portions seen appear wnl Right Kidney: Appearance of hydronephrosis. IMPRESSION: 1. Liver pattern somewhat coarse which is a nonspecific finding can be seen with hepatocellular disea se including hepatitis or hepatic steatosis. 2. Cholelithiasis. Gallbladder wall measures 3 mm at the upper limits of normal correlate clinically. Early acute cholecystitis cannot be excluded. Gallbladder does appear to be distended. No pericholec ystic fluid. 3. Mild right-sided hydronephrosis. Correlate with urinalysis.
[2022-03-28] MEDS ORDERED: HYDROmorphone 1 MG/ML 1 ML SYRINGE IVP PRN (13:29)
[2022-03-28] MEDS ORDERED: ONDANSETRON 4 MG/2 ML VIAL IVP PRN (13:29)
[2022-03-28] MEDS ORDERED: NALOXONE 0.4 MG/ML 1 ML VIAL IV PRN (13:29)
[2022-03-28] MEDS: SODIUM CHLORIDE 0.9% 1,000 ML IV SCH ×2 (14:43→23:08)
--- NOTE | 2022-03-28 15:26 | P.GSCN ---
History of Present Illness Consult date: 03/28/22 History of present illness: CHIEF COMPLAINT: Abdominal pain HISTORY OF PRESENT ILLNESS: This is a 51-year-old female with a known history of stage IV endometrial cancer. She is followed by an oncologist out of [facility]. She is on chemotherapy. She reports that her cancer is recurrent and is now in the lymph nodes. She's had a hysterectomy in the past. Patient presents to the hospital with complaints of right upper quadrant abdominal pain with nausea and vomiting. She reports that the pain started at 8:30 last night. She had eaten mashed potatoes and gravy for dinner and then noted increased pain after eating. She has been having nausea and vomiting. She reports that there is pain that radiates to the back. She also reports some lower abdominal pain which she contributes to her cancer pain. She has noticed abdominal pain after eating for the last few weeks. She denies any fever or chills or sweats. She was mildly tachycardic on admission with elevated white count. Computed tomography scan had shown evidence of gallstones and gallbladder wall thickening and correlate for acute cholecystitis. And jejunal enteritis is not excluded. Patient reports that due to her chemotherapy she goes back and forth between having loose stools and constipation. Surgical service consulted for possible acute cholecystitis. Past surgical history includes hysterectomy, and hernia repair. PAST MEDICAL HISTORY: See below PAST SURGICAL HISTORY: See below MEDICATIONS: See below ALLERGIES: See below SOCIAL HISTORY: No illicit drug use. REVIEW OF SYSTEMS: CONSTITUTIONAL: Denies fever or chills. HEENT: Denies blurred vision, vision changes, or eye pain. Denies hemoptysis CARDIOVASCULAR: Denies chest pain or pressure. RESPIRATORY: No shortness of breath. GASTROINTESTINAL: See HPI for pertinent findings HEMATOLOGIC: Denies bleeding disorders. GENITOURINARY: Denies any blood in urine or increased urinary frequency. SKIN: Denies pruitis. Denies rash. PHYSICAL EXAM: VITAL SIGNS: Reviewed GENERAL: Well-developed in no acute distress. HEENT: No sclera icterus. Extraocular movements grossly intact. Moist buccal mucosa. Head is atraumatic, normocephalic. No nasal drainage. ABDOMEN: Soft. Nondistended. Tenderness in the right upper quadrant and lower abdomen. NEUROLOGIC: Alert and oriented. Cranial nerves II through XII grossly intact. LABORATORY DATA: WBC 17.6 HGB 16 plt 167 Na 135 K 4.6 cr 0.49 lactic acid 1.3 Total bilirubin 0.9 AST 35 ALT 22 alk phos 105 lipase 24 Urinalysis no evidence of infection IMAGING: Computed tomography scan abdomen and pelvis there is evidence of cholelithiasis. Mild gallbladder wall thickening. Gallbladder distention. Normal appendix. Thickened proximal jejunal loops which are mildly distended however not dilated measuring up to 2.8 cm. Finding could reflect enteritis. Correlate for acute cholecystitis. Jejunal enteritis is not excluded Gallbladder ultrasound liver pattern somewhat coarse which is nonspecific finding can be seen with hepatocellular disease including hepatitis or hepatic steatosis. Cholelithiasis. Gallbladder wall measures 3 mm at the upper limits of normal correlate clinically. Early acute cholecystitis cannot be excluded. Gallbladder does appear to be distended. No pericholecystic fluid. Mild right- sided hydronephrosis ASSESSMENT: 1. Abdominal pain 2. Possible acute cholecystitis with cholelithiasis and distended gallbladder noted on CAT scan and abdominal ultrasound 3. Possible jejunal enteritis 4. History of endometrial cancer with recurrence and lymph node involvement. On chemotherapy 5. Prior abdominal surgeries 6. Diabetes mellitus 7. Hyperlipidemia 8. History of PE PLAN: -Further recommendations forthcoming per surgeon -Start clear liquids -Continue antibiotics -Continue IV fluids -Continue pain medication as needed -Continue antiemetics Thank you for this consultation Physician Food Products Tester note has been reviewed by physician. Signing provider agrees with the documented findings, assessment, and plan of care. Patient seen and evaluated. Family at bedside. Patient has intractable nausea vomiting following Dilaudid administration. Patient complains of right upper quadrant pain. She has been on chemotherapy. Last several months feeling generalized malaise. Recommend IV antibiotics this patient is high risk for surgical complications were current chemotherapy. Additionally, Zofran, Reglan, scopolamine patch order for nausea. Recommend trial of antibiotics for 24 ho urs. May need HIDA scan for possible placement of cholecystectomy tube due to high risk surgery. Patient scheduled for telehealth visit with her oncologist on 04/03/2022. We'll continue to follow. Recommend conservative management this time due to concurrent chemotherapy and higher risk for surgical complications. 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 THYROID NODULES. SHOULDER PROB, RT WORSE. RT R ING TRIGGER FINGER. History of Any Multi-Drug Resistant Organisms: None Reported Past Surgical History: Section, Hernia Repair, Hysterectomy, Tonsillectomy Additional Past Surgical History / Comment(s): Nixon Trigger thumb surgery. Radical hysterectomy, rt ring finger,rt middle finger,lt pointer finger 03/25 Past Anesthesia/Blood Transfusion Reactions: No Reported Reaction, Family History of Problems w/ Anesthesia, Motion Sickness Additional Past Anesthesia/Blood Transfusion Reaction / Comm: SIBLINGS HAVE PONV. pt claustrophobic. Past Psychological History: Anxiety, Depression Smoking Status: Never smoker Past Alcohol Use History: Occasional Past Drug Use History: None Reported - Past Family History Mother Family Medical History: Diabetes Mellitus Additional Family Medical History / Comment(s): heart valve replaced Father Family Medical History: Cancer Additional Family Medical History / Comment(s): prostate cancer Medications and Allergies Home Medications Medication Instructions Recorded Confirmed Type Insulin Aspart [NovoLOG Flexpen] 5 - 10 units SQ AC-TID 06/02/19 03/28/22 History Atorvastatin [Lipitor] 20 mg PO PC-SUPPER 03/28/22 03/28/22 History Cholecalciferol [Vitamin D3 (25 50 mcg PO DAILY 03/28/22 03/28/22 History Mcg = 1000 Iu)] Empagliflozin [Jardiance] 25 mg PO DAILY 03/28/22 03/28/22 History Insulin Glargine,Hum.rec.anlog 20 units SQ HS 03/28/22 03/28/22 History [Lantus Solostar Pen] Lenvatinib Mesylate [Lenvima] 10 mg PO DAILY 03/28/22 03/28/22 History Omeprazole [PriLOSEC] 20 mg PO DAILY 03/28/22 03/28/22 History Pioglitazone [Actos] 15 mg PO DAILY 03/28/22 03/28/22 History lisinopriL [Prinivil] 20 mg PO DAILY 03/28/22 03/28/22 History Allergies Allergy/AdvReac Type Severity Reaction Status Date / Time diatrizoate meglumine Allergy Diarrhea Verified 03/28/22 13:08 (FROM GASTROGRAPHIN) morphine Allergy Nausea & Verified 03/28/22 13:08 Vomiting Blue tape Allergy blisters Uncoded 03/28/22 09:25 where tape applied to skin Surgical - Exam Vital Signs Temp Pulse Resp BP Pulse Ox 98.3 F 104 H 22 132/79 91 L 03/28/22 09:22 03/28/22 09:22 03/28/22 09:22 03/28/22 09:22 03/28/22 09:22 Results - Labs 03/28/22 09:50 03/28/22 09:50 Abnormal Lab Results - Last 24 Hours (Table) 03/28/22 03/28/22 03/28/22 Range/Units 09:50 09:50 09:50 WBC 17.6 H (3.8-10.6) k/uL Hct 47.1 H (34.0-46.0) % Neutrophils # 15.6 H (1.3-7.7) k/uL Lymphocytes # 0.9 L (1.0-4.8) k/uL Sodium 135 L (137-145) mmol/L Creatinine 0.49 L (0.52-1.04) mg/dL Glucose 127 H (74-99) mg/dL Urine Protein Trace H (Negative) Urine Glucose (UA) 4+ H (Negative) Urine Ketones 3+ H (Negative) Diabetes panel 03/28/22 Range/Units 09:50 Sodium 135 L (137-145) mmol/L Potassium 4.6 (3.5-5.1) mmol/L Chloride 101 (98-107) mmol/L Carbon Dioxide 23 (22-30) mmol/L BUN 13 (7-17) mg/dL Creatinine 0.49 L (0.52-1.04) mg/dL Glucose 127 H (74-99) mg/dL Calcium 9.0 (8.4-10.2) mg/dL AST 35 (14-36) U/L ALT 22 (4-34) U/L Alkaline Phosphatase 105 (38-126) U/L Total Protein 7.5 (6.3-8.2) g/dL Albumin 4.5 (3.5-5.0) g/dL Calcium panel 03/28/22 Range/Units 09:50 Calcium 9.0 (8.4-10.2) mg/dL Albumin 4.5 (3.5-5.0) g/dL Pituitary panel 03/28/22 Range/Units 09:50 Sodium 135 L (137-145) mmol/L Potassium 4.6 (3.5-5.1) mmol/L Chloride 101 (98-107) mmol/L Carbon Dioxide 23 (22-30) mmol/L BUN 13 (7-17) mg/dL Creatinine 0.49 L (0.52-1.04) mg/dL Glucose 127 H (74-99) mg/dL Calcium 9.0 (8.4-10.2) mg/dL Adrenal panel 03/28/22 Range/Units 09:50 Sodium 135 L (137-145) mmol/L Potassium 4.6 (3.5-5.1) mmol/L Chloride 101 (98-107) mmol/L Carbon Dioxide 23 (22-30) mmol/L BUN 13 (7-17) mg/dL Creatinine 0.49 L (0.52-1.04) mg/dL Glucose 127 H (74-99) mg/dL Calcium 9.0 (8.4-10.2) mg/dL Total Bilirubin 0.9 (0.2-1.3) mg/dL AST 35 (14-36) U/L ALT 22 (4-34) U/L Alkaline Phosphatase 105 (38-126) U/L Total Protein 7.5 (6.3-8.2) g/dL Albumin 4.5 (3.5-5.0) g/dL
[2022-03-28] MEDS ORDERED: DEXTROSE 50% SYRINGE 50 ML IVP PRN ×2 (15:27)
[2022-03-28] MEDS: PIPERACILLIN-TAZOBACTAM 3.375 GM in SODIUM CHLORIDE 0.9% 100 ML IVPB SCH ×2 (17:09→23:06)
[2022-03-28 18:22] LABS: Glucose,Whole Blood 122 mg/dL (70-110)
[2022-03-28] MEDS ORDERED: SODIUM CHLORIDE 0.9% 2,000 ML IV ONE (18:41)
[2022-03-28] MEDS ORDERED: SCOPOLAMINE 1 MG/72 HR PATCH TRANSDERM SCH (18:45)
[2022-03-28] MEDS: INSULIN ASPART (NovoLOG) 100 UNIT/ML VIAL SQ SCH ×2 (18:54→20:53)
[2022-03-28] MEDS: METOCLOPRAMIDE 5 MG/ML 2 ML VIAL IVP SCH ×2 (18:58→23:06)
[2022-03-28] MEDS: KETOROLAC 15 MG/ML 1 ML VIAL IVP SCH ×2 (18:58→23:06)
[2022-03-28] MEDS: LENVATINIB MESYLATE PO SCH (20:52)
[2022-03-28] MEDS: ATORVASTATIN 20 MG TAB PO SCH (20:58)
[2022-03-28] MEDS ORDERED: INSULIN DETEMIR (LEVEMIR) 100 UNIT/ML SYR SQ SCH (21:00)
[2022-03-28] MEDS ORDERED: LANTUS 100 UNIT/ML SQ SCH (21:00)
--- NOTE | 2022-03-28 21:42 | P.HPIM ---
History of Present Illness This is a pleasant 51 years old female with multiple medical problems as below including history of recurrent abdominal cancer, patient believes that her gently her cancer was from endometrial tissue. Presents because of abdominal pain that started last night about 10/10 in severity in the right upper quadrant, felt like stabbing pain associated with vomiting, she vomited twice but no blood She does not believe that her bowel movement has change, she states bowel movement usually up and down, over the last 2 days they were normal to little constipated. Patient states that she has History of endometrial cancer 2 years ago with recurrence despite treatment, she was to follow-up with also however currently her oncologist is at [facility] and she receiving what she believes immunotherapy and infusion of chemotherapy She denies chest pain or coughing or dyspnea. No urinary complaints. No headache or weakness or numbness She lives but denies smoking cigarettes, no alcohol or illicit tracts Surgery team were contacted by ED physician, because of her significant and extensive history of cancer they recommended to admit the patient and her medicine service and will manage her initially conservatively upon the recommendation Patient is afebrile She is tachycardic around 110, blood pressure is stable and she is saturating 92% on 2 L oxygen via nasal cannula Labs reviewed showed leukocytosis 17.6, rest of CBC, BMP and liver enzymes and lipase are unremarkable. Urine analysis showed glucose urea with no evidence of infection. CT of the abdomen and pelvis with contrast showing possible acute cholecystitis with jejunal enteritis is not exclude. Also there is evidence of cholelithiasis with mild gallbladder wall thickening and gallbladder distention 8.3 cm Review of Systems Review of systems CONSTITUTIONAL: No fever, no malaise, no fatigue. HEENT: No recent visual problems or hearing problems. Denied any sore throat. CARDIOVASCULAR: No orthopnea, PND, no palpitations, no syncope. PULMONARY: No shortness of breath, no cough, no hemoptysis. GASTROINTESTINAL: No diarrhea, Normoactive bowel sounds. NEUROLOGICAL: No headaches, no weakness, no numbness. HEMATOLOGICAL: Denies any bleeding or petechiae. GENITOURINARY: Denies any burning micturition, frequency, or urgency. MUSCULOSKELETAL/RHEUMATOLOGICAL: Denies any joint pain, swelling, or any muscle pain. ENDOCRINE: Denies any polyuria or polydipsia. 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 THYROID NODULES. SHOULDER PROB, RT WORSE. RT RING TRIGGER FINGER. History of Any Multi-Drug Resistant Organisms: None Reported Past Surgical History: Section, Hernia Repair, Hysterectomy, Tonsillectomy Additional Past Surgical History / Comment(s): Nixon Trigger thumb surgery. Radical hysterectomy, rt ring finger,rt middle finger,lt pointer finger 03/25 Past Anesthesia/Blood Transfusion Reactions: No Reported Reaction, Family History of Problems w/ Anesthesia, Motion Sickness Additional Past Anesthesia/Blood Transfusion Reaction / Comment(s): SIBLINGS HAVE PONV. pt claustrophobic. Past Psychological History: Anxiety, Depression Smoking Status: Never smoker Past Alcohol Use History: Occasional Past Drug Use History: None Reported - Past Family History Mother Family Medical History: Diabetes Mellitus Additional Family Medical History / Comment(s): heart valve replaced Father Family Medical History: Cancer Additional Family Medical History / Comment(s): prostate cancer Medications and Allergies Home Medications Medication Instructions Recorded Confirmed Type Insulin Aspart [NovoLOG Flexpen] 5 - 10 units SQ AC-TID 06/02/19 03/28/22 History Atorvastatin [Lipitor] 20 mg PO PC-SUPPER 03/28/22 03/28/22 History Cholecalciferol [Vitamin D3 (25 50 mcg PO DAILY 03/28/22 03/28/22 History Mcg = 1000 Iu)] Empagliflozin [Jardiance] 25 mg PO DAILY 03/28/22 03/28/22 History Insulin Glargine,Hum.rec.anlog 20 units SQ HS 03/28/22 03/28/22 History [Lantus Solostar Pen] Lenvatinib Mesylate [Lenvima] 10 mg PO DAILY 03/28/22 03/28/22 History Omeprazole [PriLOSEC] 20 mg PO DAILY 03/28/22 03/28/22 History Pioglitazone [Actos] 15 mg PO DAILY 03/28/22 03/28/22 History lisinopriL [Prinivil] 20 mg PO DAILY 03/28/22 03/28/22 History Allergies Allergy/AdvReac Type Severity Reaction Status Date / Time diatrizoate meglumine Allergy Diarrhea Verified 03/28/22 13:08 (FROM GASTROGRAPHIN) morphine Allergy Nausea & Verified 03/28/22 13:08 Vomiting Blue tape Allergy blisters Uncoded 03/28/22 09:25 where tape applied to skin Physical Exam Vitals: Vital Signs Temp Pulse Resp BP Pulse Ox 03/28/22 14:59 111 H 16 140/85 97 03/28/22 13:16 105 H 16 146/92 93 L 03/28/22 10:05 110 H 18 150/95 92 L 03/28/22 09:22 98.3 F 104 H 22 132/79 91 L Intake and Output 03/28/22 03/28/22 03/28/22 06:59 14:59 22:59 Other: Weight 72.575 kg -GENERAL: The patient is alert and oriented x3, not in any acute distress. Well developed, well nourished. Obesity with BMI of 34.6 HEENT: Pupils are round and equally reacting to light. EOMI. No scleral icterus. No conjunctival pallor. Normocephalic, atraumatic. No pharyngeal erythema. No thyromegaly. CARDIOVASCULAR: S1 and S2 present. No murmurs, rubs, or gallops. PULMONARY: Chest is clear to auscultation, no wheezing or crackles. -ABDOMEN: Soft, right upper quadrant tenderness with positive Mack sign, mild guarding with no rebound tenderness, nondistended, normoactive bowel sounds. No palpable organomegaly. MUSCULOSKELETAL: No joint swelling or deformity. EXTREMITIES: No cyanosis, clubbing, or pedal edema. NEUROLOGICAL: Gross neurological examination did not reveal any focal deficits. SKIN: No rashes. no petechiae. Results CBC & Chem 7: 03/28/22 09:50 03/28/22 09:50 Labs: Abnormal Lab Results - Last 24 Hours (Table) 03/28/22 03/28/22 03/28/22 Range/Units 09:50 09:50 09:50 WBC 17.6 H (3.8-10.6) k/uL Hct 47.1 H (34.0-46.0) % Neutrophils # 15.6 H (1.3-7.7) k/uL Lymphocytes # 0.9 L (1.0-4.8) k/uL Sodium 135 L (137-145) mmol/L Creatinine 0.49 L (0.52-1.04) mg/dL Glucose 127 H (74-99) mg/dL Urine Protein Trace H (Negative) Urine Glucose (UA) 4+ H (Negative) Urine Ketones 3+ H (Negative) Assessment and Plan Assessment: Acute cholecystitis Abdominal pain secondary to above Undergoing history of endometrial cancer, stage IV, patient received chemotherapy Diabetes mellitus Hypertension Hyperlipidemia History of pulmonary embolism Hypothyroidism History of anxiety and depression, not in active Obesity with BMI of 34.6 Plan: Continue with bowel rest, currently started a liquid diet per surgery team recommendation IV fluids Pain medication Surgical team consult Continue with Zosyn Check hemoglobin A1c She is on long-acting insulin Lantus 20 units at bedtime and NovoLog 5-10 units with meals. Because of expected poor appetite and abdominal symptoms we going to lower Levemir to 10 units and insulin sliding scale Labs and medication were reviewed.. Continue same treatment. Continue with symptomatic treatment. Resume home medication. Monitor lytes and vitals. DVT and GI prophylaxis. Further recommendations as per clinical course of the patient DVT prophylaxis: Subcutaneous heparin GI Prophylaxis: Pepcid Prognosis is guarded
[2022-03-28] MEDS: PANTOPRAZOLE 40 MG/10 ML VIAL IVP SCH ×2 (22:13→23:07)
[2022-03-28] MEDS: HEPARIN SODIUM,PORCINE/PF 5,000 UNIT/0.5 ML SYRINGE SQ SCH ×2 (22:13→23:07)
[2022-03-28] MEDS: ONDANSETRON 4 MG/2 ML VIAL IVP SCH (23:07)
[2022-03-29] MEDS: INSULIN ASPART (NovoLOG) 100 UNIT/ML VIAL SQ SCH ×3 (05:50→17:40)
[2022-03-29] MEDS: ONDANSETRON 4 MG/2 ML VIAL IVP SCH ×2 (05:50→12:19)
[2022-03-29] MEDS: METOCLOPRAMIDE 5 MG/ML 2 ML VIAL IVP SCH ×2 (05:50→12:18)
[2022-03-29] MEDS: KETOROLAC 15 MG/ML 1 ML VIAL IVP SCH ×2 (05:50→12:19)
[2022-03-29 05:54] LABS: Glucose,Whole Blood 48 mg/dL (70-110)
[2022-03-29 06:01] LABS: Glucose,Whole Blood 45 mg/dL (70-110)
[2022-03-29 06:16] LABS: Glucose,Whole Blood 75 mg/dL (70-110)
[2022-03-29] MEDS: HEPARIN SODIUM,PORCINE/PF 5,000 UNIT/0.5 ML SYRINGE SQ SCH (07:27)
[2022-03-29] MEDS: PIPERACILLIN-TAZOBACTAM 3.375 GM in SODIUM CHLORIDE 0.9% 100 ML IVPB SCH ×2 (07:27→16:02)
[2022-03-29] MEDS: PANTOPRAZOLE 40 MG/10 ML VIAL IVP SCH (08:22)
[2022-03-29] MEDS ORDERED: LENVATINIB MESYLATE PO SCH ×2 (09:00→21:00)
[2022-03-29] MEDS ORDERED: PIOGLITAZONE 15 MG TAB PO SCH (09:00)
[2022-03-29] MEDS ORDERED: lisinopriL 20 MG TAB PO SCH (09:00)
[2022-03-29 11:29] LABS: Basophils # (A) 0.04 X 10*3/uL (0.00-0.10); Basophils % (A) 0.3 %; Eosinophils # (A) 0.09 X 10*3/uL (0.04-0.35); Eosinophils % (A) 0.7 %; HCT 40.6 % (37.2-46.3); HGB 12.7 g/dL (12.0-15.0); Immature Grans, Automated 0.4 %; Lymphocytes # (A) 1.26 X 10*3/uL (0.90-5.00); Lymphocytes % (A) 9.4 %; MCH 29.2 pg (27.0-32.0); MCHC 31.3 g/dL (32.0-37.0); MCV 93.3 fL (80.0-97.0); Mean Platelet Volume 10.6 fL (9.5-12.2); Monocytes # (A) 1.06 X 10*3/uL (0.20-1.00); Monocytes % (A) 7.9 %; NRBC Per 100 WBC 0 /100 WBCS (0.0-0.0); Neutrophils # (A) 10.89 X 10*3/uL (1.80-7.70); Neutrophils % (A) 81.3 %; Platelet Count 156 X 10*3/uL (140-440); RBC 4.35 X 10*6/uL (4.10-5.20); RDW 14.6 % (11.5-14.5); WBC 13.39 X 10*3/uL (4.50-10.00)
[2022-03-29 12:04] LABS: Glucose,Whole Blood 54 mg/dL (70-110)
[2022-03-29 12:20] LABS: Glucose,Whole Blood 76 mg/dL (70-110)
[2022-03-29] MEDS: SODIUM CHLORIDE 0.9% 1,000 ML IV SCH (12:25)
[2022-03-29] MEDS: LENVATINIB MESYLATE PO SCH (13:18)
--- NOTE | 2022-03-29 13:26 | P.PN ---
Subjective Progress Note Date: 03/29/22 Patient reports moderate improvement of abdominal pain including nausea. He had trilobar low-fat diet. Patient has appointment with her oncologist 04/03/2022. Stable for discharge was tolerating diet. Recommend discharge home with antibiotics for 10 days. Follow-up as outpatient. Objective - Vital Signs Vital signs: Vital Signs Temp 98.0 F 03/29/22 02:00 Pulse 80 03/29/22 08:19 Resp 15 03/29/22 08:19 BP 115/74 03/29/22 08:19 Pulse Ox 92 L 03/29/22 08:19 FiO2 Intake & Output 03/28/22 03/29/22 03/29/22 18:59 06:59 18:59 Weight 72.575 kg Other: Voiding Method Toilet # Voids 1 - Labs CBC & Chem 7: 03/29/22 07:01 03/28/22 09:50 Labs: Abnormal Lab Results - Last 24 Hours (Table) 03/28/22 03/29/22 03/29/22 Range/Units 18:20 05:43 05:57 WBC (4.50-10.00) X 10*3/uL MCHC (32.0-37.0) g/dL RDW (11.5-14.5) % Immature Gran # (0.00-0.04) X 10*3/uL Neutrophils # (1.80-7.70) X 10*3/uL Monocytes # (0.20-1.00) X 10*3/uL POC Glucose (mg/dL) 122 H 48 L 45 L (70-110) mg/dL Procalcitonin (0.02-0.09) ng/mL 03/29/22 03/29/22 03/29/22 Range/Units 07:01 07:01 12:01 WBC 13.39 H (4.50-10.00) X 10*3/uL MCHC 31.3 L (32.0-37.0) g/dL RDW 14.6 H (11.5-14.5) % Immature Gran # 0.05 H (0.00-0.04) X 10*3/uL Neutrophils # 10.89 H (1.80-7.70) X 10*3/uL Monocytes # 1.06 H (0.20-1.00) X 10*3/uL POC Glucose (mg/dL) 54 L (70-110) mg/dL Procalcitonin 1.13 H (0.02-0.09) ng/mL
[2022-03-29 13:27] LABS: ALT 14 U/L (8-44); AST 23 U/L (13-35); African American GFR (CKD) 118.1 (60.0-200.0); Albumin 3.3 g/dL (3.8-4.9); Albumin/Globulin Ratio 1.64 (1.60-3.17); Alkaline Phosphatase 82 U/L (41-126); BUN/Creat Ratio 25.73 Ratio (12.00-20.00); Bilirubin, Conjugated <0.20 mg/dL (0.20-0.40); Blood Urea Nitrogen 16.8 mg/dL (9.0-27.0); Calcium 8.2 mg/dL (8.7-10.3); Carbon Dioxide 20.3 mmol/L (20.0-27.5); Chloride 102 mmol/L (96-109); Glucose 156 mg/dL (70-110); Non-African American GFR(CKD) 101.9 (60.0-200.0); Potassium 4.2 mmol/L (3.5-5.5); Sodium 135 mmol/L (135-145); Total Protein 5.4 g/dL (6.2-8.2)
[2022-03-29 14:34] VITALS: BP 105/68; PULSE 79; RESP 19; TEMP 98.3
[2022-03-29 16:49] LABS: Glucose,Whole Blood 74 mg/dL (70-110)
[2022-03-29] MEDS: ATORVASTATIN 20 MG TAB PO SCH (17:43)
--- NOTE | 2022-03-29 17:54 | P.CONS ---
History of Present Illness - Reason for Consult Consult date: 03/29/22 Uterine CA, on chemo and immunotherpay Requesting physician: Jasen E Sheet - Chief Complaint Abdominal pain and N/V - History of Present Illness Patient is a pleasant 51 years old female with history of HTN, HLD, and type 2 DM and uterine cancer. Pt presented to the ED for RUQ pain x 1 day, 10/10, stabbing, associated N/V. Denies fever, hematemesis, hematuria, blood in stool, melena. Reports weight loss of 15-20lbs over the last [address] AP with contrast showing possible acute cholecystitis with jejunal enteritis is not excluded. Also there is evidence of cholelithiasis with mild gallbladder wall thickening and gallbladder distention 8.3 cm. Started on IV abx. Patient is afebrile, CBC showed leukocytosis 17.6, hgb 16.0, plt 167. Patient was initially dx with stage IVB adenocarcinoma of endometrium by PRESS ASSISTANT AND FEEDER/ONC at [facility] in 2009, at which time had a radical hysterectomy, BSO, omenectomy, and tumor debulking in 12/2009. Completed 6 cycles carboplatinum/taxol 04/2010 and has been following up with [facility] since. Patient was then seen in our clinic in 07/2015 for local care-[facility] cordinating treatment. F/U CT showed para- aortic, aortocaval and gastrohepatic nodes. Dr Crocker recommendations were made for further Chemotherapy utilizing same protocol of Carboplatinum+Taxol given in 2009. Completed 6 cycles of carbo/taxol. She was started on Letrazole 2.5mg PO. CT CAP negative for residual/metastatic cancer at that time. She had recurrence earlier this year, now on keytruda and lenvima, and has been on treatment since 08/2021. Last dose of oral Lenvima was yesterday, and keytruda on 03/12/22, given on every 6 week cycle. She has been doing well on treatment. Her recent scan at [facility] was concerning for a mass near ureter. Review of Systems 10 point ROS is negative except as stated in HPI 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 THYROID NODULES. SHOULDER PROB, RT WORSE. RT RING TRIGGER FINGER. History of Any Multi-Drug Resistant Organisms: None Reported Past Surgical History: Section, Hernia Repair, Hysterectomy, Tonsillectomy Additional Past Surgical History / Comment(s): Nixon Trigger thumb surgery. Radical hysterectomy, rt ring finger,rt middle finger,lt pointer finger 03/25 Past Anesthesia/Blood Transfusion Reactions: No Reported Reaction, Family History of Problems w/ Anesthesia, Motion Sickness Additional Past Anesthesia/Blood Transfusion Reaction / Comm: SIBLINGS HAVE PONV. pt claustrophobic. Past Psychological History: Anxiety, Depression Smoking Status: Never smoker Past Alcohol Use History: Occasional Past Drug Use History: None Reported - Past Family History Mother Family Medical History: Diabetes Mellitus Additional Family Medical History / Comment(s): heart valve replaced Father Family Medical History: Cancer Additional Family Medical History / Comment(s): prostate cancer Medications and Allergies Home Medications Medication Instructions Recorded Confirmed Type Insulin Aspart [NovoLOG Flexpen] 5 - 10 units SQ AC-TID 06/02/19 03/28/22 History Atorvastatin [Lipitor] 20 mg PO PC-SUPPER 03/28/22 03/28/22 History Cholecalciferol [Vitamin D3 (25 50 mcg PO DAILY 03/28/22 03/28/22 History Mcg = 1000 Iu)] Empagliflozin [Jardiance] 25 mg PO DAILY 03/28/22 03/28/22 History Insulin Glargine,Hum.rec.anlog 20 units SQ HS 03/28/22 03/28/22 History [Lantus Solostar Pen] Omeprazole [PriLOSEC] 20 mg PO DAILY 03/28/22 03/28/22 History Pioglitazone [Actos] 15 mg PO DAILY 03/28/22 03/28/22 History lisinopriL [Prinivil] 20 mg PO DAILY 03/28/22 03/28/22 History Amoxic-Pot Clav 875-125Mg 1 tab PO BID 10 Days #20 tab 03/29/22 Rx [Augmentin 875-125] Allergies Allergy/AdvReac Type Severity Reaction Status Date / Time diatrizoate meglumine Allergy Diarrhea Verified 03/28/22 13:08 (FROM GASTROGRAPHIN) morphine Allergy Nausea & Verified 03/28/22 13:08 Vomiting Blue tape Allergy blisters Uncoded 03/28/22 09:25 where tape applied to skin Physical Exam Vitals: Vital Signs Temp Pulse Pulse Resp BP BP Pulse Ox 03/29/22 08:19 80 15 115/74 92 L 03/29/22 02:00 98.0 F 88 16 114/70 90 L 03/28/22 20:00 98.4 F 105 H 15 111/71 91 L 03/28/22 17:25 98.8 F 107 H 17 114/79 92 L 03/28/22 14:59 111 H 16 140/85 97 03/28/22 13:16 105 H 16 146/92 93 L Intake and Output 03/28/22 03/29/22 03/29/22 22:59 06:59 14:59 Other: Voiding Method Toilet # Voids 1 - Constitutional General appearance: average body habitus, cooperative, no acute distress - EENT Eyes: anicteric sclerae, EOMI ENT: hearing grossly normal - Neck Neck: no lymphadenopathy, normal ROM - Respiratory Respiratory: bilateral: CTA - Cardiovascular Rhythm: regular Abnormal Heart Sounds: no systolic murmur, no diastolic murmur, no rub, no S3 Gallop, no S4 Gallop, no click, no other - Gastrointestinal General gastrointestinal: soft, tenderness Localized gastrointestinal: tender: RUQ - Integumentary Integumentary: normal, no pale, no rash - Neurologic grossly intact Neurologic: CNII-XII intact - Musculoskeletal Musculoskeletal: strength equal bilaterally, no right sided weakness - Psychiatric Psychiatric: A&O x's 3, appropriate affect, intact judgment & insight Results CBC & Chem 7: 03/29/22 07:01 03/29/22 07:01 Labs: Abnormal Lab Results - Last 24 Hours (Table) 03/28/22 03/29/22 03/29/22 Range/Units 18:20 05:43 05:57 WBC (4.50-10.00) X 10*3/uL MCHC (32.0-37.0) g/dL RDW (11.5-14.5) % Immature Gran # (0.00-0.04) X 10*3/uL Neutrophils # (1.80-7.70) X 10*3/uL Monocytes # (0.20-1.00) X 10*3/uL POC Glucose (mg/dL) 122 H 48 L 45 L (70-110) mg/dL Procalcitonin (0.02-0.09) ng/mL 03/29/22 03/29/22 03/29/22 Range/Units 07:01 07:01 12:01 WBC 13.39 H (4.50-10.00) X 10*3/uL MCHC 31.3 L (32.0-37.0) g/dL RDW 14.6 H (11.5-14.5) % Immature Gran # 0.05 H (0.00-0.04) X 10*3/uL Neutrophils # 10.89 H (1.80-7.70) X 10*3/uL Monocytes # 1.06 H (0.20-1.00) X 10*3/uL POC Glucose (mg/dL) 54 L (70-110) mg/dL Procalcitonin 1.13 H (0.02-0.09) ng/mL CT scan - abdomen: report reviewed US - abdomen: report reviewed Assessment and Plan (1) Endometrial adenocarcinoma Current Visit: Yes Status: Acute Priority: High Code(s): C54.1 - MALIGNANT NEOPLASM OF ENDOMETRIUM SNOMED Code(s): 643576239 (2) Acute cholecystitis Current Visit: Yes Status: Acute Priority: High Code(s): K81.0 - ACUTE CHOLECYSTITIS SNOMED Code(s): 16550912 Plan: Endometrial carcinoma, treated at [facility]. Pt will continue f/u and treatment per primary Onc recs. Oral Lenvima will be held do to acute cholecystisis and possibility of surgical intervention. Treatment will be held until case reviewed with/by her Oncologist at [facility]. CBC showed leukocytosis 17.6, 2/2 infection. Hgb 16.0, plt 167. Will continue to f/u with patient Dr attests: I have performed H&P and developed impression and plan of care for patient, discussed with dictator. I agree agree with dictated note, documented as a scribe
--- NOTE | 2022-03-30 03:45 | P.DS ---
Providers Date of admission: 03/28/22 13:29 Attending physician: Kelvin Garcia Consults: 03/28/22 13:25 Consult Physician Routine Consulting Provider: Mary Castellanos Consult Reason/Comments: acute cholecystitis Do you want consulting provider notified?: Already Contacted 03/29/22 08:28 Consult Physician Urgent Consulting Provider: Giovany Sheffield Consult Reason/Comments: chemotherapy medication Do you want consulting provider notified?: Yes Primary care physician: Damien Rodriguez Hospital Course: Diagnoses: Acute cholecystitis Abdominal pain secondary to above Undergoing history of endometrial cancer, stage IV, patient received chemotherapy at [facility]. Patient's was instructed to hold Lenvima upon discharge Diabetes mellitus Hypertension Hyperlipidemia History of pulmonary embolism Hypothyroidism History of anxiety and depression, not in active Obesity with BMI of 34.6 Hospital course: This is a pleasant 51 years old female with multiple medical problems as below including history of recurrent abdominal cancer, of endometrial source that she. With her primary oncologist at [facility], currently she is on cancer treatment withv Lenvima . Presents because of signs symptoms of acute cholecystitis, recommended by surgery team to be admitted to medical service because of her cancer history. Patient was treated conservatively per surgery team recommendation. Patient showed interval improvement, patient cancer medication Lenvima is recommended to be held by medical team as well as surgical oncologist team and patient will follow up with her oncologist upon discharge within one week to discuss plan with this medication. Today when I saw the patient morning she was sitting in bed side, looks comfortable and pleasant stating that her abdominal pain is significantly improved and treated at 3/10 in severity. Patient kept improvement R for the day she was doing well, she tolerated diet well, patient evaluated and cleared for discharge by Dr. Rhodes as well as oncology team. Patient denies any other new symptoms. Problems and management plan were discussed with the patient and he verbalized understanding and acceptance Patient was found stable and can be discharged home in guarded prognosis however he needs follow-up as an outpatient. Patient was instructed to follow up with PCP within one week and patient agrees Patient also will follow up with Dr. Alcantara within one week. Physical exam Gen: patient is a AAOx3, no distress CVS: S1-S2, RRR, no murmur Lungs: B/L CTA, no wheezing Abdomen: soft, no distention, mild right abdominal tenderness ( significantly improved), positive bowel sounds Extremity: no leg edema or induration Time spent more than 35 minutes Patient Condition at Discharge: Fair Plan - Discharge Summary Discharge Rx Participant: Yes New Discharge Prescriptions: New Amoxic-Pot Clav 875-125Mg [Augmentin 875-125] 1 tab PO BID 10 Days #20 tab Continue Insulin Aspart [NovoLOG Flexpen] 5 - 10 units SQ AC-TID Omeprazole [PriLOSEC] 20 mg PO DAILY Atorvastatin [Lipitor] 20 mg PO PC-SUPPER lisinopriL [Prinivil] 20 mg PO DAILY Pioglitazone [Actos] 15 mg PO DAILY Cholecalciferol [Vitamin D3 (25 Mcg = 1000 Iu)] 50 mcg PO DAILY Insulin Glargine,Hum.rec.anlog [Lantus Solostar Pen] 20 units SQ HS Empagliflozin [Jardiance] 25 mg PO DAILY Discontinued Lenvatinib Mesylate [Lenvima] 10 mg PO DAILY Discharge Medication List Insulin Aspart [NovoLOG Flexpen] 5 - 10 units SQ AC-TID 06/02/19 [History] Atorvastatin [Lipitor] 20 mg PO PC-SUPPER 03/28/22 [History] Cholecalciferol [Vitamin D3 (25 Mcg = 1000 Iu)] 50 mcg PO DAILY 03/28/22 [History] Empagliflozin [Jardiance] 25 mg PO DAILY 03/28/22 [History] Insulin Glargine,Hum.rec.anlog [Lantus Solostar Pen] 20 units SQ HS 03/28/22 [History] Omeprazole [PriLOSEC] 20 mg PO DAILY 03/28/22 [History] Pioglitazone [Actos] 15 mg PO DAILY 03/28/22 [History] lisinopriL [Prinivil] 20 mg PO DAILY 03/28/22 [History] Amoxic-Pot Clav 875-125Mg [Augmentin 875-125] 1 tab PO BID 10 Days #20 tab 03/29/22 [Rx] Follow up Appointment(s)/Referral(s): Mary Castellanos MD [STAFF PHYSICIAN] - 04/10/22 Damien Rodriguez MD [Primary Care Provider] - 1-2 days Patient Instructions/Handouts: Cholecystitis (GEN), Low Fat Diet (DC), Laparoscopic Cholecystectomy (DC) Activity/Diet/Wound Care/Special Instructions: heart healthy diet activity is restricted till you see your doctor we recommend to follow up with your oncologist on your appointment date , you have the contact information as your informed the medical team We recommend to hold your cancer medication Lenvima till you talk to your oncologist Discharge Disposition: HOME SELF-CARE
--- NOTE | 2022-04-02 12:47 | CDI ---
Documentation Clarification Form Date: 04/02/2022 12:11:12 PM From: Amy Chavarria Phone: Admit Date: 03/28/2022 01:29:00 PM Patient Name: Cher Urrutia Visit Number: [id number] Discharge Date: 03/29/2022 06:13:00 PM ATTENTION: The Clinical Documentation Specialists (CDI) and [facility] Coding Staff appreciate your assistance in clarifying documentation. Please respond to the clarification below the line at the bottom and electronically sign. The CDI & [facility] Coding staff will review the response and follow-up if needed. Please note: Queries are made part of the Legal Health Record. If you have any questions, please contact the author of this message via ITS. Dr. Kelvin Garcia Ketoacidosis is documented per ED Note and patient is noted to IDDMII. Please clarify if there is a relationship between the diagnoses. History/Risk Factors: 51yo F, acute cholecystitis with cholelithiasis, jejunal enteritis, Hx recurrent endometrial lymph node involvement on chemo, IDDMII, HLD, Hx PE Clinical Indicators: Laboratory evaluation obtained showed leukocytosis 17.6.Coag panel is negative. Metabolic panel was within acceptable limits. Urinalysis is positive for 3+ ketones. Likely some degree of ketoacidosis from dehydration. Glucose 156 03/29/22; Estimated Average Glucose 165; A1C 7.5 Urine Glucose 4+ Ketones 3+ Treatment: Case discussed with Dr. Alcantara request the patient be admitted to medicine with IV antibiotics and Gen. Surgery on consult. Please clarify the relationship, if any, which is clinically appropriate for this patient: [ ] Ketoacidosis is due to DMII [ ] Ketoacidosis is not due to DMII [ ] Other explanation of clinical findings (please specify) [ ] Unable to determine (no explanation for clinical findings) (Template Last Revised: June 2020) Ketoacidosis is due to DMII MTDD
== END 2022-03-29 18:13 | disposition home or self-care (01) | DRG 445 ==
LOC: EC 09:04 → 4SSUR 13:29
PROVIDERS: ADMIT Hospitalist; ATTEND Hospitalist
DX: K80.00 Calculus of gallbladder with acute cholecystitis without obstruction (principal); K52.1 Toxic gastroenteritis and colitis; N13.30 Unspecified hydronephrosis; E03.9 Hypothyroidism, unspecified; C54.1 Malignant neoplasm of endometrium; E86.0 Dehydration; E66.9 Obesity, unspecified; F32.A Depression, unspecified; I10 Essential (primary) hypertension; R63.4 Abnormal weight loss; Z68.34 Body mass index [BMI] 34.0-34.9, adult; E11.9 Type 2 diabetes mellitus without complications; E78.5 Hyperlipidemia, unspecified; K59.00 Constipation, unspecified; T45.1X5A Adverse effect of antineoplastic and immunosuppressive drugs, initial encounter; G89.3 Neoplasm related pain (acute) (chronic); R53.81 Other malaise; R00.0 Tachycardia, unspecified; F40.240 Claustrophobia; Z87.891 Personal history of nicotine dependence; Z86.711 Personal history of pulmonary embolism; Z79.4 Long term (current) use of insulin; Z79.84 Long term (current) use of oral hypoglycemic drugs; Z79.899 Other long term (current) drug therapy; Z88.5 Allergy status to narcotic agent; Z91.041 Radiographic dye allergy status; Z90.710 Acquired absence of both cervix and uterus; Z91.048 Other nonmedicinal substance allergy status; Z85.42 Personal history of malignant neoplasm of other parts of uterus
CPT/HCPCS: 36415; 74177; 76705; 80048; 80053; 80076; 81003; 83036; 83605; 83690; 84145; 85025; 85610; 85730; 93005; 96374; 96375; 99285

== ENCOUNTER → 2023-02-04 | Outpatient (CLI) | payer BC ==
--- NOTE | 2023-02-05 07:40 | US ---
EXAMINATION TYPE: US kidneys/renal and bladder DATE OF EXAM: 02/04/2023 COMPARISON: CLINICAL INDICATION: Female, 52 years old with history of N13.30 UNSPECIFIED HYDRONEPHROSIS; Patient states having a right renal stent due to mass compressing ureter; stent was removed x 1 month ago. EXAM MEASUREMENTS: Right Kidney: 10.4 x 5.0 x 4.9 cm Left Kidney: 10.8 x 4.9 x 5.2 cm Right Kidney: Possible mild hydronephrosis Left Kidney: Dilated renal pelvis vs mild hydronephrosis versus peripelvic cysts. Bladder: distended, anechoic Bilateral Jets seen IMPRESSION: Small fluid collection within the expected region of the left renal pelvis. Prominent renal pelvis, p eripelvic cyst could be considered.
== END | disposition home or self-care (01) ==
LOC: RADUSWWP 16:04
PROVIDERS: ATTEND Urology
DX: N13.30 Unspecified hydronephrosis (principal)
CPT/HCPCS: 76770

== ENCOUNTER → 2023-02-15 | Outpatient (CLI) | payer BC ==
--- NOTE | 2023-02-18 11:47 | PE ---
EXAMINATION TYPE: PET CT fusion skull to thigh DATE OF EXAM: 02/15/2023 COMPARISON: CT abdomen pelvis 03/28/2022 Prior PET/CT: None HISTORY: Uterine cancer TECHNIQUE: Following the intravenous administration of 10.91 mCi of F-18 FDG, whole body images are performed from the skull base to the midthigh. Images are reviewed on the computer in the coronal, a xial, and sagittal planes. Reconstructed rotating images are created on independent workstation and reviewed on the computer. A localization and attenuation correction CT is performed in conjunction with the PET scan. DLP: 495.53 mGycm SCAN: Initial Blood glucose: 86 mg/dL Average Mediastinum SUV: 1.53 Average Liver SUV: 2.52 FINDINGS: NECK: No abnormal soft tissue uptake THORAX: No abnormal soft tissue uptake ABDOMEN: No abnormal soft tissue uptake PELVIS: No abnormal soft tissue uptake OSSEOUS STRUCTURES: There is some mild uptake within the medial left clavicular head with an SUV of 5 .75, Image 55. There are scattered focal areas of uptake within the ribs suspicious for metastatic disease, example images 70, SUV 3.69 right rib., Left lateral rib, SUV 3.90. Additional hyperintense lesion lateral ri ght rib, image 75, SUV 3.67.Anterior rib end uptake, image 101, left 0.58, right 4.29. Multiple addit ional areas of milder rib uptake are evident. There is some uptake within a right costovertebral junction may be degenerative in nature, SUV 3.77, example image 63. Metastasis not excluded. Small focus of radiotracer within the inferior right sternum, image 95, SUV 6.178 Vertebral body uptake present, image 85, SUV 8.01. Vertebral body uptake present image 111, SUV 6.6. Additional levels with punctate focal areas of uptake within vertebral body including the lower thor acic and upper lumbar spine. Some uptake is within a spinous process, likely T11 level with an SUV of 4.26. There are multiple areas of abnormal uptake within the iliac wings and within the sacrum. Most intens e area appears to be within the posterior left sacral alar, image 174, SUV 9.34. There is a focus of abnormal radiotracer within the proximal diaphyseal left femur, image 240, SUV 4. 87. An additional focus is in the more proximal diaphyseal femur, image 221, SUV 5.77. Right proximal femoral uptake is present. Focus of radiotracer is within the greater trochanter right femur, as the 9.72, image 208. There is uptake within the posterior right acetabular column, image 198, SUV 8.84. Similar uptake is on the left, image 192, SUV 9.68. LOCALIZATION CT: May be a minimal pericardial effusion present. Cholelithiasis is present. Filters wi thin the inferior vena cava. Uterus is absent. Patient's known osseous metastasis based on the PET sc an are not as clearly delineated. However, there appears to be extensive mottled appearance to the os seous structures suggesting additional infiltrative metastasis within the osseous structures. COMPARISON: None IMPRESSION: 1. 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
== END | disposition home or self-care (01) ==
LOC: RADPETMAIN 10:08
PROVIDERS: ATTEND Internal Medicine Hematology & Oncology
DX: C54.8 Malignant neoplasm of overlapping sites of corpus uteri (principal); C79.51 Secondary malignant neoplasm of bone
CPT/HCPCS: 78815; A9552

== ENCOUNTER → 2023-03-05 | Outpatient (CLI) | payer BC ==
--- NOTE | 2023-03-06 07:18 | CA ---
Transthoracic Echo Report Name: Cher Urrutia Age: 52 Gender: F : 1970 Exam Date: 03/05/2023 17:52 Exam Location: [facility] Ht (in): 59.5 Wt (lb): 150 Ordering Physician: Elsa Mcdonald MD Attending/Referring Phys: Cad Engineer Kary Link RDCS Procedure CPT: Indications: Z01.818 pre op clearance Cardiac Hx: Technical Quality: Fair Contrast 1: Total Dose (mL): Contrast 2: Total Dose (mL): MEASUREMENTS (Male / Female) Normal Values 2D ECHO LV Diastolic Diameter PLAX 4.0 cm 4.2 - 5.9 / 3.9 - 5.3 cm LV Systolic Diameter PLAX 2.8 cm IVS Diastolic Thickness 0.9 cm 0.6 - 1.0 / 0.6 - 0.9 cm LVPW Diastolic Thickness 0.9 cm 0.6 - 1.0 / 0.6 - 0.9 cm LV Relative Wall Thickness 0.4 RV Internal Dim ED PLAX 2.6 cm LA Systolic Diameter LX 3.3 cm 3.0 - 4.0 / 2.7 - 3.8 cm LV Diastolic Volume MOD 4C 52.7 cm??? LV Systolic Volume MOD 4C 17.9 cm??? LV Ejection Fraction MOD 4C 65.9 % LV Cardiac Index MOD 4C 1902.5 cm???/min???m??? LV Diastolic Length 4C 6.4 cm LV Systolic Length 4C 4.9 cm LV Diastolic Volume MOD 2C 65.2 cm??? LV Systolic Volume MOD 2C 27.1 cm??? LV Ejection Fraction MOD 2C 58.5 % LV Cardiac Index MOD 2C 2089.8 cm???/min???m??? LV Diastolic Length 2C 7.6 cm LV Systolic Length 2C 6.0 cm LA Volume 42.4 cm??? 18 - 58 / 22 - 52 cm??? LA Volume Index 24.7 cm???/m??? 16 - 28 cm???/m??? M-MODE Aortic Root Diameter MM 2.7 cm MV E Point Septal Separation 0.3 cm AV Cusp Separation MM 1.7 cm DOPPLER AV Peak Velocity 167.2 cm/s AV Peak Gradient 11.2 mmHg MV Area PHT 2.6 cm??? Mitral E Point Velocity 103.3 cm/s Mitral A Point Velocity 110.9 cm/s Mitral E to A Ratio 0.9 MV Deceleration Time 287.9 ms MV E' Velocity 10.5 cm/s Mitral E to MV E' Ratio 9.9 FINDINGS Left Ventricle Left ventricular ejection fraction is estimated at 55-60 %. Left ventricular cavity size normal. Left ventricular wall thickness normal. Normal left ventricular wall motion. Right Ventricle Normal right ventricular size and function. Unable to estimate the right ventricular systolic pressure. Right Atrium Normal right atrial size. Left Atrium Normal left atrial size. Mitral Valve Structurally normal mitral valve. No mitral stenosis, regurgitation or prolapse. Aortic Valve Trileaflet aortic valve. No aortic valve stenosis or regurgitation. Tricuspid Valve Structurally normal tricuspid valve. No tricuspid stenosis, regurgitation or prolapse. Pulmonic Valve Structurally normal pulmonic valve. Trace to mild pulmonic regurgitation. Pericardium No pericardial effusion. Aorta Normal size aortic root and proximal ascending aorta. CONCLUSIONS Normal LV function Previewed by: Dr. Mahesh Feliciano MD (Electronically Signed) Final Date: 06 March 2023 07:18
== END | disposition home or self-care (01) ==
LOC: RADECHMAIN 17:42
PROVIDERS: ATTEND Internal Medicine Hematology & Oncology
DX: Z01.818 Encounter for other preprocedural examination (principal); C54.8 Malignant neoplasm of overlapping sites of corpus uteri; C79.51 Secondary malignant neoplasm of bone; E11.9 Type 2 diabetes mellitus without complications; I80.10 Phlebitis and thrombophlebitis of unspecified femoral vein
CPT/HCPCS: 93306

== ENCOUNTER → 2023-03-27 | Outpatient (CLI) | payer BC ==
--- NOTE | 2023-04-02 19:15 | MM ---
Reason for Exam: Screening (asymptomatic). Last mammogram was performed 1 year(s) and 1 month(s) ago. Patient History: Menarche at age 9. First Full-Term at age 20. Left ovary removed at age 39. Right ovary removed at age 39. Hysterectomy at age 39. Postmenopausal. Previous chemotherapy at age 52. Patient used Hormonal Contraceptives for 12 years. Radiation Therapy. Chemotherapy. Maternal aunt had breast cancer, age 50. Maternal aunt had breast cancer, age 50. Risk Values: Ignacia 5 year model risk: 1.1%. NCI Lifetime model risk: 8.4%. Prior Study Comparison: 01/05/2021 Bilateral Screening Mammogram, [facility]. 07/06/2021 Left Diagnostic Mammogram, [facility]. 02/13/2022 Bilateral MG 3D diag mammo w/cad ALDO, [facility]. Tissue Density: There are scattered fibroglandular densities. Findings: Analyzed By CAD. There is no suspicious group of microcalcifications or new suspicious mass in either breast. Overall Assessment: Negative, BI-RAD 1 Management: Screening Mammogram of both breasts in 1 year. . Patient should continue monthly self-breast exams. A clinical breast exam by your physician is recommended on an annual basis. This exam should not preclude additional follow-up of suspicious palpable abnormalities. Note on Ignacia scores and lifetime risk: 1. A Ignacia score greater than 3% is considered moderate risk. If this is the case, consider specialist referral to assess eligibility for a risk reducing agent. 2. If overall lifetime risk for the development of breast cancer is 20% or higher, the patient may qualify for future screening with alternating mammogram and breast MRI. Electronically signed and approved by: Michael Dickerson M.D. Radiologist
== END | disposition home or self-care (01) ==
LOC: RADMAMWWP 16:46
PROVIDERS: ATTEND Internal Medicine Hematology & Oncology
DX: Z12.31 Encounter for screening mammogram for malignant neoplasm of breast (principal); C79.51 Secondary malignant neoplasm of bone; C54.8 Malignant neoplasm of overlapping sites of corpus uteri; E11.9 Type 2 diabetes mellitus without complications; I80.10 Phlebitis and thrombophlebitis of unspecified femoral vein; Z80.3 Family history of malignant neoplasm of breast; Z78.0 Asymptomatic menopausal state
CPT/HCPCS: 77063; 77067

== ENCOUNTER → 2023-07-04 | Outpatient (CLI) | payer BC ==
--- NOTE | 2023-07-07 23:36 | PE ---
EXAMINATION TYPE: PET CT fusion skull to thigh DATE OF EXAM: 07/04/2023 COMPARISON: 03/28/2022 CT abdomen and pelvis Prior PET/CT: 02/15/2023 HISTORY: Uterine cancer TECHNIQUE: Following the intravenous administration of 11.99 mCi of F-18 FDG, whole body images are performed from the skull base to the midthigh. Images are reviewed on the computer in the coronal, a xial, and sagittal planes. Reconstructed rotating images are created on independent workstation and reviewed on the computer. A localization and attenuation correction CT is performed in conjunction with the PET scan. DLP: 393.57 mGycm SCAN: Subsequent Blood glucose: 88 mg/dL Average Mediastinum SUV: 2.22 Average Liver SUV: 3.05 FINDINGS: NECK: No suspicious soft tissue uptake. THORAX: No suspicious intrathoracic uptake. ABDOMEN: There are scattered hyperintensities through both lobes of the liver. Reference lesions in t he posterior lateral right upper lobe liver, image 108 has an SUV of 8.43. Anterior mid left lobe kun er lesion image 121 has an SUV of 8.06. PELVIS: No suspicious soft tissue uptake OSSEOUS STRUCTURES: There are multiple scattered areas of increased uptake throughout the osseous str uctures. This could be related to treatment. The ribs appear somewhat patchy suggesting underlying me tastasis. There is increased uptake within the left humeral head extending into the diaphysis. Multip le vertebral body areas of uptake are present. There is some uptake within posterior spinous processe s in the mid lumbar spine uptake is present throughout the pelvis osseous structures. Uptake is withi n the bilateral medullary femoral diaphysis extending into the femoral heads and neck. LOCALIZATION CT: Small pericardial effusion is present. COMPARISON: Osseous uptake is increasing. Multiple metastatic lesions within the liver are new. [place] us uptake through the pelvis is increased. IMPRESSION: 1. Multiple new hepatic lesions both lobes liver. 2. Increasing uptake scattered throughout osseous structures. Portion of this could be related to last atment, however, somewhat patchy appearance increasing number within the pelvis suggest osseous metas tasis should be considered.
== END | disposition home or self-care (01) ==
LOC: RADPETMAIN 14:48
PROVIDERS: ATTEND Internal Medicine Hematology & Oncology
DX: C54.8 Malignant neoplasm of overlapping sites of corpus uteri (principal); K76.9 Liver disease, unspecified
CPT/HCPCS: 78815; A9552

== ENCOUNTER 2023-07-29 16:26 | Observation (INO) | payer BC ==
--- NOTE | 2023-07-29 17:42 | ED ---
General Adult HPI - General Chief complaint: Recheck/Abnormal Lab/Rx Stated complaint: Blood transfusion Time Seen by Provider: 07/29/23 17:30 Source: patient, RN notes reviewed Mode of arrival: ambulatory Limitations: no limitations - History of Present Illness Initial comments: 53-year-old female presents to the emergency department for evaluation of low hemoglobin and weakness. Patient states that she was sent in from Dr. Mcdonald's office after a blood draw today. She notes that they sent her in for a hemoglobin of 5. She does report a history of anemia requiring blood transfusions. She also has a history of endometrial cancer. She is currently on oral chemotherapy. She follows with Dr. Mcdonald. She admits to palpitations, fatigue, weakness. She denies any active bleeding. - Related Data Home Medications Medication Instructions Recorded Confirmed Insulin Aspart [NovoLOG Flexpen] 10 units SQ AC-TID PRN 06/02/19 07/30/23 Empagliflozin [Jardiance] 25 mg PO DAILY 03/28/22 07/30/23 Insulin Glargine,Hum.rec.anlog 22 units SQ HS 03/28/22 07/30/23 [Lantus Solostar Pen] Omeprazole [PriLOSEC] 40 mg PO BID 03/28/22 07/30/23 Pioglitazone [Actos] 15 mg PO DAILY 03/28/22 07/30/23 lisinopriL [Prinivil] 20 mg PO BID 03/28/22 07/30/23 Acetaminophen-Codeine 300-30mg 1 tab PO Q6H PRN 07/30/23 07/30/23 [Tylenol w/codeine #3] Biotin [Marl-Zooy-Ssvaz] 10,000 mcg PO DAILY 07/30/23 07/30/23 Cabozantinib S-Malate [Cabometyx] 40 mg PO DAILY 07/30/23 07/30/23 Metoclopramide [Reglan] 10 mg PO Q6H PRN 07/30/23 07/30/23 Naloxone HCl [Narcan] 4 mg NASAL DIRECTED PRN 07/30/23 07/30/23 OLANZapine [ZyPREXA] 2.5 mg PO HS 07/30/23 07/30/23 Ondansetron Odt [Zofran ODT] 4 mg PO Q6H PRN 07/30/23 07/30/23 Pregabalin [Lyrica] 100 mg PO BID 07/30/23 07/30/23 Sucralfate [Carafate] 1 gm PO Q6H PRN 07/30/23 07/30/23 amLODIPine [Norvasc] 2.5 mg PO HS 07/30/23 07/30/23 traMADol HCL 50 mg PO Q6H PRN 07/30/23 07/30/23 Allergies Allergy/AdvReac Type Severity Reaction Status Date / Time diatrizoate meglumine Allergy Diarrhea Verified 07/30/23 08:06 (FROM GASTROGRAPHIN) morphine Allergy Nausea & Verified 07/30/23 08:06 Vomiting Blue tape Allergy blisters Uncoded 07/30/23 08:06 where tape applied to skin Review of Systems ROS Statement: Those systems with pertinent positive or pertinent negative responses have been documented in the HPI. ROS Other: All systems not noted in ROS Statement are negative. 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 THYROID NODULES. SHOULDER PROB, RT WORSE. RT RING TRIGGER FINGER. Uterine Cancer. Ureter Stent History of Any Multi-Drug Resistant Organisms: None Reported Past Surgical History: Section, Hernia Repair, Hysterectomy, Tonsillectomy Additional Past Surgical History / Comment(s): Nixon Trigger thumb surgery. Radi nelida hysterectomy, rt ring finger,rt middle finger,lt pointer finger 03/25 Past Anesthesia/Blood Transfusion Reactions: No Reported Reaction, Family History of Problems w/ Anesthesia, Motion Sickness Additional Past Anesthesia/Blood Transfusion Reaction / Comment(s): SIBLINGS HAVE PONV. pt claustrophobic. Past Psychological History: Anxiety, Depression Smoking Status: Never smoker, Vaper Past Alcohol Use History: None Reported Past Drug Use History: None Reported - Past Family History Mother Family Medical History: Diabetes Mellitus Additional Family Medical History / Comment(s): heart valve replaced Father Family Medical History: Cancer Additional Family Medical History / Comment(s): prostate cancer General Exam Limitations: no limitations General appearance: alert, in no apparent distress Head exam: Present: atraumatic, normocephalic, normal inspection Eye exam: Present: PERRL, EOMI, other (Pallorous mucosa) ENT exam: Present: mucous membranes moist, other (Pallorous oral mucosa) Respiratory exam: Present: normal lung sounds bilaterally. Absent: respiratory distress, wheezes, rales, rhonchi, stridor Cardiovascular Exam: Present: normal rhythm, tachycardia, normal heart sounds. Absent: systolic murmur, diastolic murmur, rubs, gallop, clicks GI/Abdominal exam: Present: soft. Absent: distended, tenderness, guarding, rebound, rigid Extremities exam: Present: normal inspection, full ROM, normal capillary refill. Absent: tenderness, pedal edema, joint swelling, calf tenderness Neurological exam: Present: alert, oriented X3 Psychiatric exam: Present: normal affect, normal mood Skin exam: Present: warm, dry, intact, pallor. Absent: rash Course Vital Signs 07/29/23 07/29/23 07/29/23 16:36 16:37 17:37 Temperature 97.7 F Pulse Rate 110 H 100 97 Respiratory 20 16 16 Rate Blood Pressure 109/71 145/88 O2 Sat by Pulse 99 95 Oximetry 07/29/23 07/29/23 07/29/23 18:37 19:54 22:29 Temperature 97.9 F Pulse Rate 98 102 H 95 Respiratory 16 18 16 Rate Blood Pressure 145/88 154/76 132/79 O2 Sat by Pulse 94 L 95 Oximetry 07/29/23 07/29/23 07/29/23 22:39 22:59 23:38 Temperature 99.4 F 97.9 F 98.4 F Pulse Rate 98 99 92 Respiratory 18 16 16 Rate Blood Pressure 127/74 130/80 125/76 O2 Sat by Pulse 98 99 98 Oximetry 07/30/23 07/30/23 07/30/23 00:19 00:31 01:06 Temperature 99.1 F 98.9 F Pulse Rate 94 94 88 Respiratory 18 18 18 Rate Blood Pressure 132/77 144/78 143/86 O2 Sat by Pulse 98 98 99 Oximetry 07/30/23 07/30/23 07/30/23 01:07 01:40 01:56 Temperature 98.9 F 98.2 F 98.1 F Pulse Rate 88 90 89 Respiratory 18 18 16 Rate Blood Pressure 143/86 144/78 142/82 O2 Sat by Pulse 99 98 99 Oximetry 07/30/23 07/30/23 07/30/23 02:16 03:52 04:00 Temperature 97.9 F 98.1 F Pulse Rate 90 88 92 Respiratory 18 16 18 Rate Blood Pressure 125/92 121/89 129/91 O2 Sat by Pulse 95 97 94 L Oximetry 07/30/23 07/30/23 07/30/23 07:00 08:00 09:00 Temperature Pulse Rate 94 80 91 Respiratory 16 16 16 Rate Blood Pressure 137/86 120/86 124/54 O2 Sat by Pulse 94 L 94 L 96 Oximetry 07/30/23 07/30/23 11:00 12:00 Temperature Pulse Rate 86 79 Respiratory 16 16 Rate Blood Pressure 133/56 122/74 O2 Sat by Pulse 96 95 Oximetry Medical Decision Making - Medical Decision Making Was pt. sent in by a medical professional or institution (, PA, GREEN HOUSE MANAGER, urgent care, hospital, or retirement...) When possible be specific @ -No Did you speak to anyone other than the patient for history (EMS, parent, family, police, friend...)? What history was obtained from this source @ -No Did you review nursing and triage notes (agree or disagree)? Why? @ -I reviewed and agree with nursing and triage notes Were old charts reviewed (outside hosp., previous admission, EMS record, old EK G, old radiological studies, urgent care reports/EKG's, retirement records)? Report findings @ -No old charts were reviewed Differential Diagnosis (chest pain, altered mental status, abdominal pain women, abdominal pain men, vaginal bleeding, weakness, fever, dyspnea, syncope, headache, dizziness, GI bleed, back pain, seizure, CVA, palpatations, mental health, musculoskeletal)? @ -Differential Weakness: Hypoglycemia, shock, sepsis, hyponatremia, anemia, infection, NM, ETOH, adverse medicine reaction, overdose, stroke, this is not meant to be an all-inclusive list. EKG interpreted by me (3pts min.). @ -None X-rays interpreted by me (1pt min.). @ -None done CT interpreted by me (1pt min.). @ -None done U/S interpreted by me (1pt. min.). @ -None done What testing was considered but not performed or refused? (CT, X-rays, U/S, labs)? Why? @ -None What meds were considered but not given or refused? Why? @ -None Did you discuss the management of the patient with other professionals (professionals i.e. , ES, GREEN HOUSE MANAGER, lab, RT, psych nurse, social services counselor, driver trainer, teacher, special technical operations officer, test case developer)? Give summary @ -Management discussed with [facility], Dr. Velasquez who is accepting of the admission Was smoking cessation discussed for >3mins.? @ -No Was critical care preformed (if so, how long)? @ -No Were there social determinants of health that impacted care today? How? (Homelessness, low income, unemployed, alcoholism, drug addiction, transportation, low edu. Level, literacy, decrease access to med. care, [place] [facility], rehab)? @ -No Was there de-escalation of care discussed even if they declined (Discuss DNR or withdrawal of care, Hospice)? DNR status @ -No What co-morbidities impacted this encounter? (DM, HTN, Smoking, COPD, CAD, Cancer, CVA, ARF, Chemo, Hep., AIDS, mental health diagnosis, sleep apnea, morbid obesity)? @ -None Was patient admitted / discharged? Hospital course, mention meds given and route, prescriptions, significant lab abnormalities, going to OR and other pertinent info. @ -Admitted. Patient presented to the emergency department for evaluation of generalized weakness and anemia. Found on outpatient labs to have a hemoglobin of 5.3. Repeat labs show hemoglobin of 6. Type and screen was obtained. Patient received 2 units of packed red blood cells. Patient will be admitted as observation with heme-onc on consultation. Case was discussed with [facility] was accepting of the admission. Patient understanding and agreeable with plan. Patient stable at time of admission. Case discussed with Dr. Nolen Undiagnosed new problem with uncertain prognosis? @ -No Drug Therapy requiring intensive monitoring for toxicity (Heparin, Nitro, Insulin, Cardizem)? @ -No Were any procedures done? @ -No Diagnosis/symptom? @ -Generalized weakness, anemia requiring blood transfusion Acute, or Chronic, or Acute on Chronic? @ -Acute Uncomplicated (without systemic symptoms) or Complicated (systemic symptoms)? @ -uncomplicated Side effects of treatment? @ -No Exacerbation, Progression, or Severe Exacerbation? @ -No Poses a threat to life or bodily function? How? (Chest pain, [place], NM, pneumonia, PE, COPD, DKA, ARF, appy, cholecystitis, CVA, Diverticulitis, Homicidal, Suicidal, threat to staff... and all critical care pts) @ -No - Lab Data Result diagrams: 07/30/23 08:00 07/30/23 08:00 Lab Results 07/29/23 07/29/23 07/29/23 Range/Units 19:00 19:15 19:15 WBC (3.8-10.6) k/uL RBC (3.80-5.40) m/uL Hgb (11.4-16.0) gm/dL Hct (34.0-46.0) % MCV (80.0-100.0) fL MCH (25.0-35.0) pg MCHC (31.0-37.0) g/dL RDW (11.5-15.5) % Plt Count (150-450) k/uL MPV Neutrophils % % Lymphocytes % % Monocytes % % Eosinophils % % Basophils % % Neutrophils # (1.3-7.7) k/uL Lymphocytes # (1.0-4.8) k/uL Monocytes # (0-1.0) k/uL Eosinophils # (0-0.7) k/uL Basophils # (0-0.2) k/uL Hyperchromasia Poikilocytosis Anisocytosis Microcytosis PT 11.1 (10.0-12.5) sec INR 1.0 (<1.2) APTT 19.4 L (22.0-30.0) sec Sodium 134 L (137-145) mmol/L Potassium 4.8 (3.5-5.1) mmol/L Chloride 101 (98-107) mmol/L Carbon Dioxide 25 (22-30) mmol/L Anion Gap 8 mmol/L BUN 19 H (7-17) mg/dL Creatinine 0.55 (0.52-1.04) mg/dL Est GFR (CKD-EPI)AfAm >90 (>60 ml/min/1.73 sqM) Est GFR (CKD-EPI)NonAf >90 (>60 ml/min/1.73 sqM) Glucose 72 L (74-99) mg/dL Calcium 7.9 L (8.4-10.2) mg/dL Total Bilirubin 0.5 (0.2-1.3) mg/dL AST 302 H (14-36) U/L ALT 25 (4-34) U/L Alkaline Phosphatase 190 H (38-126) U/L Total Protein 6.3 (6.3-8.2) g/dL Albumin 3.4 L (3.5-5.0) g/dL Blood Type O Positive Blood Type Recheck O Pos Bld Type Recheck Status No Antibody Screen NEGATIVE Crossmatch See Detail Spec Expiration Date 08/01/2023 - 229907/29/23 Range/Units 21:36 WBC 7.0 (3.8-10.6) k/uL RBC 2.06 L (3.80-5.40) m/uL Hgb 6.0 L* D (11.4-16.0) gm/dL Hct 17.2 L* (34.0-46.0) % MCV 83.4 D (80.0-100.0) fL MCH 28.9 (25.0-35.0) pg MCHC 34.6 (31.0-37.0) g/dL RDW 19.5 H (11.5-15.5) % Plt Count 28 L (150-450) k/uL MPV 10.6 Neutrophils % 34 % Lymphocytes % 53 % Monocytes % 6 % Eosinophils % 3 % Basophils % 1 % Neutrophils # 2.3 (1.3-7.7) k/uL Lymphocytes # 3.7 (1.0-4.8) k/uL Monocytes # 0.4 (0-1.0) k/uL Eosinophils # 0.2 (0-0.7) k/uL Basophils # 0.1 (0-0.2) k/uL Hyperchromasia Slight Poikilocytosis Moderate Anisocytosis Slight Microcytosis Slight PT (10.0-12.5) sec INR (<1.2) APTT (22.0-30.0) sec Sodium (137-145) mmol/L Potassium (3.5-5.1) mmol/L Chloride (98-107) mmol/L Carbon Dioxide (22-30) mmol/L Anion Gap mmol/L BUN (7-17) mg/dL Creatinine (0.52-1.04) mg/dL Est GFR (CKD-EPI)AfAm (>60 ml/min/1.73 sqM) Est GFR (CKD-EPI)NonAf (>60 ml/min/1.73 sqM) Glucose (74-99) mg/dL Calcium (8.4-10.2) mg/dL Total Bilirubin (0.2-1.3) mg/dL AST (14-36) U/L ALT (4-34) U/L Alkaline Phosphatase (38-126) U/L Total Protein (6.3-8.2) g/dL Albumin (3.5-5.0) g/dL Blood Type Blood Type Recheck Bld Type Recheck Status Antibody Screen Crossmatch Spec Expiration Date Disposition Clinical Impression: Generalized weakness, Anemia Disposition: ADMITTED IP TO THIS [facility] Condition: Stable Is patient prescribed a controlled substance at d/c from ED?: No
[2023-07-29] MEDS: HYDROmorphone 0.5 MG/0.5 ML SYRINGE IVP STA (19:58)
[2023-07-29] MEDS: ONDANSETRON 4 MG/2 ML VIAL IVP STA (20:04)
[2023-07-29 20:06] LABS: ALT 25 U/L (4-34); AST 302 U/L (14-36); African American GFR (CKD) >90 (>60 ml/min/1.73 sqM); Albumin 3.4 g/dL (3.5-5.0); Alkaline Phosphatase 190 U/L (38-126); Anion Gap 8 mmol/L; Blood Urea Nitrogen 19 mg/dL (7-17); Calcium 7.9 mg/dL (8.4-10.2); Carbon Dioxide 25 mmol/L (22-30); Chloride 101 mmol/L (98-107); Glucose 72 mg/dL (74-99); Non-African American GFR(CKD) >90 (>60 ml/min/1.73 sqM); Potassium 4.8 mmol/L (3.5-5.1); Sodium 134 mmol/L (137-145); Total Bilirubin 0.5 mg/dL (0.2-1.3); Total Protein 6.3 g/dL (6.3-8.2)
[2023-07-29 20:14] LABS: Prothrombin Time 11.1 sec (10.0-12.5)
[2023-07-29 20:32] LABS: Partial Thromboplastin Time 19.4 sec (22.0-30.0)
[2023-07-29] MEDS: METOCLOPRAMIDE 5 MG/ML 2 ML VIAL IVP STA (20:50)
[2023-07-29 21:50] LABS: Anisocytosis Slight; Basophils # (A) 0.1 k/uL (0-0.2); Basophils % (A) 1 %; Eosinophils # (A) 0.2 k/uL (0-0.7); Eosinophils % (A) 3 %; Hyperchromasia Slight; Lymphocytes # (A) 3.7 k/uL (1.0-4.8); Lymphocytes % (A) 53 %; MCH 28.9 pg (25.0-35.0); MCHC 34.6 g/dL (31.0-37.0); Mean Platelet Volume 10.6; Microcytosis Slight; Monocytes # (A) 0.4 k/uL (0-1.0); Monocytes % (A) 6 %; Neutrophils # (A) 2.3 k/uL (1.3-7.7); Neutrophils % (A) 34 %; Poikilocytosis Moderate; RBC 2.06 m/uL (3.80-5.40); RDW 19.5 % (11.5-15.5)
[2023-07-29 21:55] LABS: HCT 17.2 % (34.0-46.0); MCV 83.4 fL (80.0-100.0)
[2023-07-29 22:25] LABS: Platelet Count 28 k/uL (150-450)
[2023-07-29] MEDS ORDERED: HYDROmorphone 1 MG/ML 1 ML SYRINGE IVP PRN (23:20)
[2023-07-29] MEDS ORDERED: NALOXONE 0.4 MG/ML 1 ML VIAL IV PRN (23:20)
[2023-07-29] MEDS ORDERED: ACETAMINOPHEN TAB 325 MG TAB PO PRN (23:20)
[2023-07-30] MEDS: HYDROmorphone 0.5 MG/0.5 ML SYRINGE IVP PRN (00:30)
[2023-07-30 03:58] VITALS: TEMP 98.1
[2023-07-30] MEDS ORDERED: NALOXONE 0.4 MG/ML 1 ML VIAL IV PRN (04:32)
[2023-07-30] MEDS ORDERED: MAG HYDROX/AL HYDROX/SIMETH 30 ML CUP PO PRN (04:32)
[2023-07-30] MEDS: SODIUM CHLORIDE 0.9% 1,000 ML IV SCH (05:35)
[2023-07-30] MEDS: ONDANSETRON 4 MG/2 ML VIAL IVP PRN (05:47)
[2023-07-30 08:37] LABS: Anisocytosis Slight; Basophils % (A) 1 %; Eosinophils # (A) 0.2 k/uL (0-0.7); Eosinophils % (A) 3 %; Hyperchromasia Slight; Lymphocytes % (A) 47 %; MCH 29.2 pg (25.0-35.0); MCHC 34.9 g/dL (31.0-37.0); MCV 83.7 fL (80.0-100.0); Mean Platelet Volume 7.3; Monocytes # (A) 0.5 k/uL (0-1.0); Monocytes % (A) 7 %; Neutrophils # (A) 2.5 k/uL (1.3-7.7); Neutrophils % (A) 39 %; Poikilocytosis Slight; RBC 3.22 m/uL (3.80-5.40); RDW 17.2 % (11.5-15.5); WBC 6.4 k/uL (3.8-10.6)
[2023-07-30 09:01] LABS: HGB 9.4 gm/dL (11.4-16.0); Platelet Count 21 k/uL (150-450)
[2023-07-30 09:17] LABS: ALT 25 U/L (4-34); AST 349 U/L (14-36); African American GFR (CKD) >90 (>60 ml/min/1.73 sqM); Albumin 3.1 g/dL (3.5-5.0); Alkaline Phosphatase 190 U/L (38-126); Anion Gap 5 mmol/L; Blood Urea Nitrogen 15 mg/dL (7-17); Calcium 7.5 mg/dL (8.4-10.2); Carbon Dioxide 27 mmol/L (22-30); Chloride 105 mmol/L (98-107); Glucose 76 mg/dL (74-99); Non-African American GFR(CKD) >90 (>60 ml/min/1.73 sqM); Potassium 4.6 mmol/L (3.5-5.1); Sodium 137 mmol/L (137-145); Total Bilirubin 0.6 mg/dL (0.2-1.3)
[2023-07-30] MEDS ORDERED: DEXTROSE 50% SYRINGE 50 ML IVP PRN ×2 (10:17)
--- NOTE | 2023-07-30 10:18 | P.HPIM ---
History of Present Illness H&P Date: 07/30/23 Past Medical History Past Medical History: Cancer, Diabetes Mellitus, GERD/Reflux, Hyperlipidemia, Hypertension, Musculoskeletal Disorder, Pulmonary Embolus (PE), Thyroid Disorder Additional Past Medical History / Comment(s): stage 4 endometrial cancer 2009 with reoccurence lymph node ca. 2015 currently in remission OCC uses nebulizer for environmental allergies. THYROID NODULES. SHOULDER PROB, RT WORSE. RT RING TRIGGER FINGER. Uterine Cancer. Ureter Stent History of Any Multi-Drug Resistant Organisms: None Reported Past Surgical History: Section, Hernia Repair, Hysterectomy, Tonsillectomy Additional Past Surgical History / Comment(s): Nixon Trigger thumb surgery. Radical hysterectomy, rt ring finger,rt middle finger,lt pointer finger 03/25 Past Anesthesia/Blood Transfusion Reactions: No Reported Reaction, Family History of Problems w/ Anesthesia, Motion Sickness Additional Past Anesthesia/Blood Transfusion Reaction / Comment(s): SIBLINGS HAVE PONV. pt claustrophobic. Past Psychological History: Anxiety, Depression Smoking Status: Never smoker, Vaper Past Alcohol Use History: None Reported Past Drug Use History: None Reported - Past Family History Mother Family Medical History: Diabetes Mellitus Additional Family Medical History / Comment(s): heart valve replaced Father Family Medical History: Cancer Additional Family Medical History / Comment(s): prostate cancer Medications and Allergies Home Medications Medication Instructions Recorded Confirmed Type Insulin Aspart [NovoLOG Flexpen] 10 units SQ AC-TID PRN 06/02/19 07/30/23 History Empagliflozin [Jardiance] 25 mg PO DAILY 03/28/22 07/30/23 History Insulin Glargine,Hum.rec.anlog 22 units SQ HS 03/28/22 07/30/23 History [Lantus Solostar Pen] Omeprazole [PriLOSEC] 40 mg PO BID 03/28/22 07/30/23 History Pioglitazone [Actos] 15 mg PO DAILY 03/28/22 07/30/23 History lisinopriL [Prinivil] 20 mg PO BID 03/28/22 07/30/23 History Acetaminophen-Codeine 300-30mg 1 tab PO Q6H PRN 07/30/23 07/30/23 History [Tylenol w/codeine #3] Biotin [Sgvl-Mhzx-Samjn] 10,000 mcg PO DAILY 07/30/23 07/30/23 History Cabozantinib S-Malate [Cabometyx] 40 mg PO DAILY 07/30/23 07/30/23 History Metoclopramide [Reglan] 10 mg PO Q6H PRN 07/30/23 07/30/23 History Naloxone HCl [Narcan] 4 mg NASAL DIRECTED PRN 07/30/23 07/30/23 History OLANZapine [ZyPREXA] 2.5 mg PO HS 07/30/23 07/30/23 History Ondansetron Odt [Zofran Odt] 4 mg PO Q6H PRN 07/30/23 07/30/23 History Pregabalin [Lyrica] 100 mg PO BID 07/30/23 07/30/23 History Sucralfate [Carafate] 1 gm PO Q6H PRN 07/30/23 07/30/23 History amLODIPine [Norvasc] 2.5 mg PO HS 07/30/23 07/30/23 History traMADol HCL 50 mg PO Q6H PRN 07/30/23 07/30/23 History Allergies Allergy/AdvReac Type Severity Reaction Status Date / Time diatrizoate meglumine Allergy Diarrhea Verified 07/30/23 08:06 (FROM GASTROGRAPHIN) morphine Allergy Nausea & Verified 07/30/23 08:06 Vomiting Blue tape Allergy blisters Uncoded 07/30/23 08:06 where tape applied to skin Physical Exam Vitals: Vital Signs Temp Pulse Resp BP Pulse Ox 07/30/23 04:00 92 18 129/91 94 L 07/30/23 03:52 98.1 F 88 16 121/89 97 07/30/23 02:16 97.9 F 90 18 125/92 95 07/30/23 01:56 98.1 F 89 16 142/82 99 07/30/23 01:40 98.2 F 90 18 144/78 98 07/30/23 01:07 98.9 F 88 18 143/86 99 07/30/23 01:06 98.9 F 88 18 143/86 99 07/30/23 00:31 99.1 F 94 18 144/78 98 07/30/23 00:19 94 18 132/77 98 07/29/23 23:38 98.4 F 92 16 125/76 98 07/29/23 22:59 97.9 F 99 16 130/80 99 07/29/23 22:39 99.4 F 98 18 127/74 98 07/29/23 22:29 97.9 F 95 16 132/79 07/29/23 19:54 102 H 18 154/76 95 07/29/23 18:37 98 16 145/88 94 L 07/29/23 17:37 97 16 07/29/23 16:37 100 16 145/88 95 07/29/23 16:36 97.7 F 110 H 20 109/71 99 Intake and Output 07/29/23 07/30/23 07/30/23 22:59 06:59 14:59 Intake Total 0 666 Balance 0 666 Intake: Blood Product 0 566 Rc Pheresis As-3 Unit 0 283 [id number] Rc Pheresis As-3 Unit 283 [id number] Other 100 Rc Pheresis As-3 Unit 100 [id number] Other: Weight 63.957 kg Results CBC & Chem 7: 07/30/23 08:00 07/30/23 08:00 Labs: Abnormal Lab Results - Last 24 Hours (Table) 07/29/23 07/29/23 07/29/23 Range/Units 19:00 19:15 19:15 RBC (3.80-5.40) m/uL Hgb (11.4-16.0) gm/dL Hct (34.0-46.0) % RDW (11.5-15.5) % Plt Count (150-450) k/uL APTT 19.4 L (22.0-30.0) sec Sodium 134 L (137-145) mmol/L BUN 19 H (7-17) mg/dL Creatinine (0.52-1.04) mg/dL Glucose 72 L (74-99) mg/dL Calcium 7.9 L (8.4-10.2) mg/dL AST 302 H (14-36) U/L Alkaline Phosphatase 190 H (38-126) U/L Total Protein (6.3-8.2) g/dL Albumin 3.4 L (3.5-5.0) g/dL Crossmatch See Detail 07/29/23 07/30/23 07/30/23 Range/Units 21:36 08:00 08:00 RBC 2.06 L 3.22 L (3.80-5.40) m/uL Hgb 6.0 L* D 9.4 L D (11.4-16.0) gm/dL Hct 17.2 L* 27.0 L (34.0-46.0) % RDW 19.5 H 17.2 H (11.5-15.5) % Plt Count 28 L 21 L (150-450) k/uL APTT (22.0-30.0) sec Sodium (137-145) mmol/L BUN (7-17) mg/dL Creatinine 0.50 L (0.52-1.04) mg/dL Glucose (74-99) mg/dL Calcium 7.5 L (8.4-10.2) mg/dL AST 349 H (14-36) U/L Alkaline Phosphatase 190 H (38-126) U/L Total Protein 6.0 L (6.3-8.2) g/dL Albumin 3.1 L (3.5-5.0) g/dL Crossmatch
[2023-07-30] MEDS: PANTOPRAZOLE 40 MG/10 ML VIAL IVP SCH (12:02)
[2023-07-30 12:17] LABS: Glucose,Whole Blood 105 mg/dL (70-110)
[2023-07-30] MEDS ORDERED: INSULIN ASPART (NovoLOG) 100 UNIT/ML VIAL SQ SCH (12:30)
[2023-07-30 12:44] VITALS: RESP 16
--- NOTE | 2023-07-30 14:15 | P.CONS ---
History of Present Illness - Reason for Consult Consult date: 07/30/23 Anemia, endometrial adenocarcinoma - Chief Complaint Fatigue - History of Present Illness Ms. Urrutia is a 53-year-old woman with a past medical history significant for metastatic endometrial adenocarcinoma with progression on multiple lines of therapy currently on oral cabozantinib. She had labs performed in clinic on 07/29/2023 which noted hemoglobin 5.9 (MCV 84.2) with WBC 6.1 and platelets 19. It was recommended she receive packed red blood cell transfusion, which could not be arranged at the [facility] infusion [facility]. Therefore, she was advised to present to the ED for additional management. Repeat CBC on presentation revealed hemoglobin of 6 with WBC of 7 and platelets 28. Creatinine and electrolytes are within normal limits with elevated AST of 302 and alkaline phosphatase of 190 secondary to known liver metastases. She received 2 units of packed red blood cells with repeat hemoglobin of 9.4, WBC 6.4, platelets 21. Prior to presentation, she noted having significant fatigue, which has improved since blood transfusion. She is having sciatica pain down her right leg interm ittently, which is chronic in nature. She denies any abdominal pain, nausea, vomiting, diarrhea, mucositis, or plantopalmar erythema. Review of Systems 14 point review of systems was conducted with pertinent positives and negatives as noted per HPI Past Medical History Past Medical History: Cancer, Diabetes Mellitus, GERD/Reflux, Hyperlipidemia, Hypertension, Musculoskeletal Disorder, Pulmonary Embolus (PE), Thyroid Disorder Additional Past Medical History / Comment(s): stage 4 endometrial cancer 2009 with reoccurence lymph node ca. 2015 currently in remission OCC uses nebulizer for environmental allergies. THYROID NODULES. SHOULDER PROB, RT WORSE. RT RING TRIGGER FINGER. Uterine Cancer. Ureter Stent History of Any Multi-Drug Resistant Organisms: None Reported Past Surgical History: Section, Hernia Repair, Hysterectomy, Tonsillec zeke Additional Past Surgical History / Comment(s): Nixon Trigger thumb surgery. Radical hysterectomy, rt ring finger,rt middle finger,lt pointer finger 03/25 Past Anesthesia/Blood Transfusion Reactions: No Reported Reaction, Family History of Problems w/ Anesthesia, Motion Sickness Additional Past Anesthesia/Blood Transfusion Reaction / Comm: SIBLINGS HAVE PONV. pt claustrophobic. Past Psychological History: Anxiety, Depression Smoking Status: Never smoker, Vaper Past Alcohol Use History: None Reported Past Drug Use History: None Reported - Past Family History Mother Family Medical History: Diabetes Mellitus Additional Family Medical History / Comment(s): heart valve replaced Father Family Medical History: Cancer Additional Family Medical History / Comment(s): prostate cancer Medications and Allergies Home Medications Medication Instructions Recorded Confirmed Type Insulin Aspart [NovoLOG Flexpen] 10 units SQ AC-TID PRN 06/02/19 07/30/23 History Empagliflozin [Jardiance] 25 mg PO DAILY 03/28/22 07/30/23 History Insulin Glargine,Hum.rec.anlog 22 units SQ HS 03/28/22 07/30/23 History [Lantus Solostar Pen] Omeprazole [PriLOSEC] 40 mg PO BID 03/28/22 07/30/23 History Pioglitazone [Actos] 15 mg PO DAILY 03/28/22 07/30/23 History lisinopriL [Prinivil] 20 mg PO BID 03/28/22 07/30/23 History Acetaminophen-Codeine 300-30mg 1 tab PO Q6H PRN 07/30/23 07/30/23 History [Tylenol w/codeine #3] Biotin [Ujwy-Smcn-Xyytd] 10,000 mcg PO DAILY 07/30/23 07/30/23 History Cabozantinib S-Malate [Cabometyx] 40 mg PO DAILY 07/30/23 07/30/23 History Metoclopramide [Reglan] 10 mg PO Q6H PRN 07/30/23 07/30/23 History Naloxone HCl [Narcan] 4 mg NASAL DIRECTED PRN 07/30/23 07/30/23 History OLANZapine [ZyPREXA] 2.5 mg PO HS 07/30/23 07/30/23 History Ondansetron Odt [Zofran ODT] 4 mg PO Q6H PRN 07/30/23 07/30/23 History Pregabalin [Lyrica] 100 mg PO BID 07/30/23 07/30/23 History Sucralfate [Carafate] 1 gm PO Q6H PRN 07/30/23 07/30/23 History amLODIPine [Norvasc] 2.5 mg PO HS 07/30/23 07/30/23 History traMADol HCL 50 mg PO Q6H PRN 07/30/23 07/30/23 History Allergies Allergy/AdvReac Type Severity Reaction Status Date / Time diatrizoate meglumine Allergy Diarrhea Verified 07/30/23 08:06 (FROM GASTROGRAPHIN) morphine Allergy Nausea & Verified 07/30/23 08:06 Vomiting Blue tape Allergy blisters Uncoded 07/30/23 08:06 where tape applied to skin Physical Exam Vitals: Vital Signs Temp Pulse Resp BP Pulse Ox 07/30/23 07:00 94 16 137/86 94 L 07/30/23 04:00 92 18 129/91 94 L 07/30/23 03:52 98.1 F 88 16 121/89 97 07/30/23 02:16 97.9 F 90 18 125/92 95 07/30/23 01:56 98.1 F 89 16 142/82 99 07/30/23 01:40 98.2 F 90 18 144/78 98 07/30/23 01:07 98.9 F 88 18 143/86 99 07/30/23 01:06 98.9 F 88 18 143/86 99 07/30/23 00:31 99.1 F 94 18 144/78 98 07/30/23 00:19 94 18 132/77 98 07/29/23 23:38 98.4 F 92 16 125/76 98 07/29/23 22:59 97.9 F 99 16 130/80 99 07/29/23 22:39 99.4 F 98 18 127/74 98 07/29/23 22:29 97.9 F 95 16 132/79 07/29/23 19:54 102 H 18 154/76 95 07/29/23 18:37 98 16 145/88 94 L 07/29/23 17:37 97 16 07/29/23 16:37 100 16 145/88 95 07/29/23 16:36 97.7 F 110 H 20 109/71 99 Intake and Output 07/29/23 07/30/23 07/30/23 22:59 06:59 14:59 Intake Total 0 666 Balance 0 666 Intake: Blood Product 0 566 Rc Pheresis As-3 Unit 0 283 [id number] Rc Pheresis As-3 Unit 283 [id number] Other 100 Rc Pheresis As-3 Unit 100 [id number] Other: Weight 63.957 kg - Constitutional General appearance: cooperative, no acute distress - EENT Eyes: EOMI - Respiratory Respiratory: bilateral: CTA - Cardiovascular Rhythm: regular - Gastrointestinal General gastrointestinal: no distended, normal bowel sounds, soft, no tenderness - Integumentary Integumentary: pale, no rash - Neurologic Neurologic: CNII-XII intact Results CBC & Chem 7: 07/30/23 08:00 07/30/23 08:00 Labs: Abnormal Lab Results - Last 24 Hours (Table) 07/29/23 07/29/23 07/29/23 Range/Units 19:00 19:15 19:15 RBC (3.80-5.40) m/uL Hgb (11.4-16.0) gm/dL Hct (34.0-46.0) % RDW (11.5-15.5) % Plt Count (150-450) k/uL APTT 19.4 L (22.0-30.0) sec Sodium 134 L (137-145) mmol/L BUN 19 H (7-17) mg/dL Creatinine (0.52-1.04) mg/dL Glucose 72 L (74-99) mg/dL Calcium 7.9 L (8.4-10.2) mg/dL AST 302 H (14-36) U/L Alkaline Phosphatase 190 H (38-126) U/L Total Protein (6.3-8.2) g/dL Albumin 3.4 L (3.5-5.0) g/dL Crossmatch See Detail 07/29/23 07/30/23 07/30/23 Range/Units 21:36 08:00 08:00 RBC 2.06 L 3.22 L (3.80-5.40) m/uL Hgb 6.0 L* D 9.4 L D (11.4-16.0) gm/dL Hct 17.2 L* 27.0 L (34.0-46.0) % RDW 19.5 H 17.2 H (11.5-15.5) % Plt Count 28 L 21 L (150-450) k/uL APTT (22.0-30.0) sec Sodium (137-145) mmol/L BUN (7-17) mg/dL Creatinine 0.50 L (0.52-1.04) mg/dL Glucose (74-99) mg/dL Calcium 7.5 L (8.4-10.2) mg/dL AST 349 H (14-36) U/L Alkaline Phosphatase 190 H (38-126) U/L Total Protein 6.0 L (6.3-8.2) g/dL Albumin 3.1 L (3.5-5.0) g/dL Crossmatch Assessment and Plan (1) Anemia due to chemotherapy for endometrial cancer treated with erythropoietin Current Visit: Yes Status: Acute Code(s): D64.81 - ANEMIA DUE TO ANTINEOPLASTIC CHEMOTHERAPY; C54.1 - MALIGNANT NEOPLASM OF ENDOMETRIUM; T45.1X5A - ADVERSE EFFECT OF ANTINEOPLASTIC AND IMMUNOSUP DRUGS, INIT SNOMED Code(s): 624837455 (2) Endometrial adenocarcinoma Current Visit: No Status: Acute Priority: High Code(s): C54.1 - MALIGNANT NEOPLASM OF ENDOMETRIUM SNOMED Code(s): 540956891 Plan: #Borderline microcytic anemia, thrombocytopenia -Hemoglobin of 5-6 with platelets ranging in the 10s to 20s -Noted to have fatigue prior to presentation -Anemia and thrombocytopenia is likely due to current treatment with cabozantinib in addition to prior chemotherapy agents causing myelosuppression -Hemoglobin 9.4 status post 2 units of packed red blood cells -As there is borderline microcytosis, iron studies, vitamin B12/methylmalonic acid, folic acid were also ordered -As she is otherwise feeling well, no additional management is required inpatient and can be discharged from an oncology perspective -She has repeat weekly lab encounters at our clinic on 08/05/2023 and 08/12/2023 with follow-up visit on 08/20/[address] Mcdonald #Endometrial adenocarcinoma -Currently on cabozantinib 40 mg daily -Outside of anemia, she appears to be tolerating this well without any significant toxicities -She was advised to resume cabozantinib when she returns home following discharge Marilin Gonzalez MD
[2023-07-30 15:00] VITALS: BP 136/61; PULSE 79
[2023-07-30 16:37] LABS: % Iron Saturation 54.49 (12.00-45.00)
[2023-07-30] MEDS ORDERED: OLANZapine 2.5 MG TAB PO SCH (21:00)
[2023-07-30] MEDS ORDERED: amLODIPine 2.5 MG TAB PO SCH (21:00)
== END 2023-07-30 14:40 | disposition home or self-care (01) ==
LOC: EC 16:26 → 3SCARD 23:23
PROVIDERS: ADMIT Internal Medicine; ATTEND Internal Medicine
DX: C54.1 Malignant neoplasm of endometrium (principal); D64.81 Anemia due to antineoplastic chemotherapy; T45.1X5A Adverse effect of antineoplastic and immunosuppressive drugs, initial encounter; D69.6 Thrombocytopenia, unspecified; E11.9 Type 2 diabetes mellitus without complications; K21.9 Gastro-esophageal reflux disease without esophagitis; E78.5 Hyperlipidemia, unspecified; F32.A Depression, unspecified; F41.9 Anxiety disorder, unspecified; F17.290 Nicotine dependence, other tobacco product, uncomplicated; Z86.711 Personal history of pulmonary embolism; Z79.4 Long term (current) use of insulin; Z79.84 Long term (current) use of oral hypoglycemic drugs; Z79.899 Other long term (current) drug therapy; Z88.5 Allergy status to narcotic agent
CPT/HCPCS: 96376; 36430 ×2; 96361; 96374; 96375 ×2; 99285; 36415; 86900; 86901; 83921; 80053 ×2; 82607; 82728; 82746; 83540; 83550; 85025 ×2; 85610; 85730; 86850; 86920; G0378 ×2; P9016 ×2; J2765; J2405 ×2; C9113; J1170 ×2

== ENCOUNTER 2023-08-30 17:11 | Inpatient (IN) | payer BC ==
--- NOTE | 2023-08-30 18:03 | ED ---
Neuro HPI - General Chief Complaint: Neuro Symptoms/Deficit Stated Complaint: vomiting Time Seen by Provider: 08/30/23 17:48 Source: patient, RN notes reviewed, old records reviewed, Caregiver Mode of arrival: ambulatory Limitations: no limitations - History of Present Illness Is the patient presenting with stroke symptoms?: No -: days(s) Initial Comments: This is a 53-year-old female to the ER for evaluation today. Patient presents today for evaluation regards to vomiting and pain headache weakness slurred speech with persistent nausea and vomiting here in the emergency department history of cancer with metastasis Location: speech, altered Place: home Severity: severe Quality: weak Improves With: none, time Context: other (0) Associated Symptoms: confusion Treatments Prior to Arrival: none - Related Data Home Medications: Home Medications Medication Instructions Recorded Confirmed Insulin Aspart [NovoLOG Flexpen] 10 units SQ AC-TID PRN 06/02/19 08/31/23 Insulin Glargine,Hum.rec.anlog 27 units SQ HS 03/28/22 08/31/23 [Lantus Solostar Pen] Omeprazole [PriLOSEC] 40 mg PO BID 03/28/22 08/31/23 Pioglitazone [Actos] 15 mg PO DAILY 03/28/22 08/31/23 lisinopriL [Prinivil] 20 mg PO DAILY 03/28/22 08/31/23 Biotin [Rbag-Hvyn-Bsegm] 10,000 mcg PO DAILY 07/30/23 08/31/23 Metoclopramide [Reglan] 10 mg PO Q6H PRN 07/30/23 08/31/23 Ondansetron Odt [Zofran ODT] 4 mg PO Q6H PRN 07/30/23 08/31/23 Sucralfate [Carafate] 1 gm PO Q6H PRN 07/30/23 08/31/23 amLODIPine [Norvasc] 2.5 mg PO HS 07/30/23 08/31/23 Loperamide [Imodium] 2 mg PO Q4H PRN 08/31/23 08/31/23 Allergies/Adverse Reactions: Allergies Allergy/AdvReac Type Severity Reaction Status Date / Time diatrizoate meglumine Allergy Diarrhea Verified 08/31/23 12:00 (FROM GASTROGRAPHIN) morphine Allergy Nausea & Verified 08/31/23 12:00 Vomiting prochlorperazine AdvReac Nausea & Verified 08/31/23 12:00 [From Compazine] Vomiting Review of Systems ROS Statement: Those systems with pertinent positive or pertinent negative responses have been documented in the HPI. ROS Other: All systems not noted in ROS Statement are negative. General Exam Limitations: no limitations General appearance: alert, in no apparent distress Head exam: Present: atraumatic, normocephalic, normal inspection Eye exam: Present: normal appearance, PERRL, EOMI. Absent: scleral icterus, conjunctival injection, periorbital swelling ENT exam: Present: normal exam, mucous membranes moist Neck exam: Present: normal inspection. Absent: tenderness, meningismus, lymphadenopathy Respiratory exam: Present: normal lung sounds bilaterally. Absent: respiratory distress, wheezes, rales, rhonchi, stridor Cardiovascular Exam: Present: regular rate, normal rhythm, normal heart sounds. Absent: systolic murmur, diastolic murmur, rubs, gallop, clicks GI/Abdominal exam: Present: soft, normal bowel sounds. Absent: distended, tenderness, guarding, rebound, rigid Extremities exam: Present: normal inspection, full ROM, normal capillary refill. Absent: tenderness, pedal edema, joint swelling, calf tenderness Back exam: Present: normal inspection Neurological exam: Present: alert, oriented X3, CN II-XII intact Psychiatric exam: Present: normal affect, normal mood Skin exam: Present: warm, dry, intact, normal color. Absent: rash Stroke MDM - Lab Data Result diagrams: 08/31/23 07:24 08/31/23 07:24 Lab Results 08/30/23 08/30/23 08/30/23 Range/Units 19:14 19:14 19:14 WBC 6.0 (3.8-10.6) k/uL RBC 2.81 L (3.80-5.40) m/uL Hgb 8.4 L (11.4-16.0) gm/dL Hct 24.7 L (34.0-46.0) % MCV 87.8 (80.0-100.0) fL MCH 30.0 (25.0-35.0) pg MCHC 34.2 (31.0-37.0) g/dL RDW 17.6 H (11.5-15.5) % Plt Count 24 L (150-450) k/uL MPV 9.1 Neutrophils % 50 % Lymphocytes % 37 % Monocytes % 6 % Eosinophils % 2 % Basophils % 1 % Neutrophils # 3.0 (1.3-7.7) k/uL Lymphocytes # 2.2 (1.0-4.8) k/uL Monocytes # 0.4 (0-1.0) k/uL Eosinophils # 0.2 (0-0.7) k/uL Basophils # 0.1 (0-0.2) k/uL Poikilocytosis Slight Anisocytosis Slight PT 11.2 (10.0-12.5) sec INR 1.0 (<1.2) APTT 26.1 (22.0-30.0) sec Sodium 138 (137-145) mmol/L Potassium 4.6 (3.5-5.1) mmol/L Chloride 109 H (98-107) mmol/L Carbon Dioxide 18 L (22-30) mmol/L Anion Gap 11 mmol/L BUN 14 (7-17) mg/dL Creatinine 0.41 L (0.52-1.04) mg/dL Est GFR (CKD-EPI)AfAm >90 (>60 ml/min/1.73 sqM) Est GFR (CKD-EPI)NonAf >90 (>60 ml/min/1.73 sqM) Glucose 155 H (74-99) mg/dL Calcium 8.5 (8.4-10.2) mg/dL Total Bilirubin 0.9 (0.2-1.3) mg/dL AST 167 H (14-36) U/L ALT 39 H (4-34) U/L Alkaline Phosphatase 414 H (38-126) U/L Creatine Kinase 178 H (30-135) U/L Troponin I (0.000-0.034) ng/mL Total Protein 6.1 L (6.3-8.2) g/dL Albumin 3.3 L (3.5-5.0) g/dL 08/30/23 Range/Units 19:14 WBC (3.8-10.6) k/uL RBC (3.80-5.40) m/uL Hgb (11.4-16.0) gm/dL Hct (34.0-46.0) % MCV (80.0-100.0) fL MCH (25.0-35.0) pg MCHC (31.0-37.0) g/dL RDW (11.5-15.5) % Plt Count (150-450) k/uL MPV Neutrophils % % Lymphocytes % % Monocytes % % Eosinophils % % Basophils % % Neutrophils # (1.3-7.7) k/uL Lymphocytes # (1.0-4.8) k/uL Monocytes # (0-1.0) k/uL Eosinophils # (0-0.7) k/uL Basophils # (0-0.2) k/uL Poikilocytosis Anisocytosis PT (10.0-12.5) sec INR (<1.2) APTT (22.0-30.0) sec Sodium (137-145) mmol/L Potassium (3.5-5.1) mmol/L Chloride (98-107) mmol/L Carbon Dioxide (22-30) mmol/L Anion Gap mmol/L BUN (7-17) mg/dL Creatinine (0.52-1.04) mg/dL Est GFR (CKD-EPI)AfAm (>60 ml/min/1.73 sqM) Est GFR (CKD-EPI)NonAf (>60 ml/min/1.73 sqM) Glucose (74-99) mg/dL Calcium (8.4-10.2) mg/dL Total Bilirubin (0.2-1.3) mg/dL AST (14-36) U/L ALT (4-34) U/L Alkaline Phosphatase (38-126) U/L Creatine Kinase (30-135) U/L Troponin I <0.012 (0.000-0.034) ng/mL Total Protein (6.3-8.2) g/dL Albumin (3.5-5.0) g/dL - NIH Stroke Scale 1a. Level of Consciousness: (0) alert 1b. LOC Questions: (0) answers correctly 1c. LOC Commands: (0) performs tasks correctly 2. Best Gaze: (0) normal 3. Visual: (0) no visual loss 4. Facial Palsy: (0) normal symmetrical movement 5a. Motor Arm Left: (0) no drift 5b. Motor Arm Right: (0) no drift 6a. Motor Leg Left: (0) no drift 6b. Motor Leg Right: (0) no drift 7. Limb Ataxia: (0) absent 8. Sensory: (0) normal 9. Best Language: (1) mild/moderate aphasia 10. Dysarthria: (1) mild/moderate dysarthria 11. Extinction/Inattention: (0) no abnormality - Thrombolytic Inclusion/Exclusion Thrombolytic Exclusion Criteria: Symptom Onset > 4.5 Hours - Medical Decision Making 53 Female with known history of cancer metastasis, patient does have possible artifact versus brain mass, symptoms of slurred speech with significant and persistent nausea vomiting here in the ER dehydration tachycardia, patient admitted for continued supportive care - Radiology Data Radiology results: report reviewed (CT brain concern for artifact versus mass chest x-ray negative for acute disease), image reviewed - EKG Data -: EKG Interpreted by Me (EKG is sinus tachycardia 125 MS 128 QRS 76 QTc 421) Past Medical History Past Medical History: Cancer, Diabetes Mellitus, GERD/Reflux, Hyperlipidemia, Hypertension, Musculoskeletal Disorder, Pulmonary Embolus (PE), Thyroid Disorder Additional Past Medical History / Comment(s): stage 4 endometrial cancer 2009 with reoccurence lymph node ca. 2015 currently in remission OCC uses nebulizer for environmental allergies. THYROID NODULES. SHOULDER PROB, RT WORSE. RT RING TRIGGER FINGER. Uterine Cancer. Ureter Stent History of Any Multi-Drug Resistant Organisms: None Reported Past Surgical History: Section, Hernia Repair, Hysterectomy, Tonsillectomy Additional Past Surgical History / Comment(s): Nixon Trigger thumb surgery. Radical hysterectomy, rt ring finger,rt middle finger,lt pointer finger 03/25 Past Anesthesia/Blood Transfusion Reactions: No Reported Reaction, Family History of Problems w/ Anesthesia, Motion Sickness Additional Past Anesthesia/Blood Transfusion Reaction / Comment(s): SIBLINGS HAVE PONV. pt claustrophobic. Past Psychological History: Anxiety, Depression Smoking Status: Former smoker - Past Family History Mother Family Medical History: Diabetes Mellitus Additional Family Medical History / Comment(s): heart valve replaced Father Family Medical History: Cancer Additional Family Medical History / Comment(s): prostate cancer Course Vital Signs 08/30/23 08/30/23 08/30/23 17:27 18:36 21:12 Temperature 98.8 F Pulse Rate 131 H 120 H 124 H Respiratory 18 18 18 Rate Blood Pressure 139/87 134/80 166/90 O2 Sat by Pulse 96 97 97 Oximetry 08/30/23 08/31/23 23:07 00:47 Temperature Pulse Rate 131 H 118 H Respiratory 18 19 Rate Blood Pressure 133/72 143/83 O2 Sat by Pulse 97 97 Oximetry - Reevaluation(s) Reevaluation #1: 08/30/23 19:09 Medical records reviewed Reevaluation #2: 08/30/23 19:09 Patient symptoms unchanged Reevaluation #3: 08/30/23 19:09 Patient informed of results and questions answered Reevaluation #4: Was pt. sent in by a medical professional or institution (, PA, NOVELTIES SALES REPRESENTATIVE, urgent care, hospital, or intermediate...) When possible be specific @ -no Did you speak to anyone other than the patient for history (EMS, parent, family, police, friend...)? What history was obtained from this source @ -no Did you review nursing and triage notes (agree or disagree)? Why? @ -agree Are old charts reviewed (outside hosp., previous admission, EMS record, old EKG, old radiological studies, urgent care reports/EKG's, intermediate records)? Report findings @ -yes Differential Diagnosis (chest pain, altered mental status, abdominal pain women, abdominal pain men, vaginal bleeding, weakness, fever, dyspnea, syncope, headache, dizziness, GI bleed, back pain, seizure, CVA, palpatations, mental health, musculoskeletal)? @ -prior EKG interpreted by me (3pts min.). @ -yes X-rays interpreted by me (1pt min.). @ -yes negative for acute disease CT interpreted by me (1pt min.). @ -Yes positive for artifact versus brain mass U/S interpreted by me (1pt. min.). @ -no What testing was considered but not performed or refused? (CT, X-rays, U/S, labs)? Why? @ -none What meds were considered but not given or refused? Why? @ -none Did you discuss the management of the patient with other professionals (professionals i.e. , PA, NOVELTIES SALES REPRESENTATIVE, lab, RT, psych nurse, social media job titles, master control supervisor, teacher, air control/anti air warfare officer, lead case manager)? Give summary @ -no Was smoking cessation discussed for >3mins.? @ -no Was critical care preformed (if so, how long)? @ -yes31 Were there social determinants of health that impacted care today? How? (Homelessness, low income, unemployed, alcoholism, drug addiction, transportation, low edu. Level, literacy, decrease access to med. care, halfway, rehab)? @ -none Was there de-escalation of care discussed even if they declined (Discuss DNR or withdrawal of care, Hospice)? DNR status @ -no What co-morbidities impacted this encounter? (DM, HTN, Smoking, COPD, CAD, Cancer, CVA, ARF, Chemo, Hep., AIDS, mental health diagnosis, sleep apnea, morbid obesity)? @ -none Was patient admitted / discharged? Hospital course, mention meds given and route, prescriptions, significant lab abnormalities, going to OR and other pertinent info. @ - 53 Female with known history of cancer metastasis, patient does have possi ble artifact versus brain mass, symptoms of slurred speech with significant and persistent nausea vomiting here in the ER dehydration tachycardia, patient admitted for continued supportive care Admitted Undiagnosed new problem with uncertain prognosis? @ -no Drug Therapy requiring intensive monitoring for toxicity (Heparin, Nitro, Insulin, Cardizem)? @ -no Were any procedures done? @ -no Diagnosis/symptom? @ -Altered mental status slurred speech headache concern for metastasis brain Acute, or Chronic, or Acute on Chronic? @ -Acute Uncomplicated (without systemic symptoms) or Complicated (systemic symptoms)? @ -Complicated Side effects of treatment? @ -no Exacerbation, Progression, or Severe Exacerbation? @ -exacerbation Poses a threat to life or bodily function? How? (Chest pain, USA, MT, pneumonia, PE, COPD, DKA, ARF, appy, cholecystitis, CVA, Diverticulitis, Homicidal, Suicidal, threat to staff... and all critical care pts) @ -yes with significant brain imaging findings positive for possible metastasis Reevaluation #5: Differential Weakness: Hypoglycemia, shock, sepsis, hyponatremia, anemia, infection, MT, ETOH, adverse medicine reaction, overdose, stroke, this is not meant to be an all-inclusive list. Critical Care Time Critical Care Time: Yes Total Critical Care Time: 31 Disposition Clinical Impression: Anemia, Weakness, Tachycardia, Nausea & vomiting, Slurred speech Disposition: ADMITTED IP TO THIS HOSP Condition: Fair Is patient prescribed a controlled substance at d/c from ED?: No Time of Disposition: 23:00
[2023-08-30 19:23] LABS: Anisocytosis Slight; Basophils # (A) 0.1 k/uL (0-0.2); Basophils % (A) 1 %; Eosinophils # (A) 0.2 k/uL (0-0.7); Eosinophils % (A) 2 %; HCT 24.7 % (34.0-46.0); HGB 8.4 gm/dL (11.4-16.0); Lymphocytes # (A) 2.2 k/uL (1.0-4.8); Lymphocytes % (A) 37 %; MCHC 34.2 g/dL (31.0-37.0); MCV 87.8 fL (80.0-100.0); Mean Platelet Volume 9.1; Monocytes # (A) 0.4 k/uL (0-1.0); Monocytes % (A) 6 %; Neutrophils % (A) 50 %; Poikilocytosis Slight; RBC 2.81 m/uL (3.80-5.40); RDW 17.6 % (11.5-15.5)
[2023-08-30 19:32] LABS: Partial Thromboplastin Time 26.1 sec (22.0-30.0); Prothrombin Time 11.2 sec (10.0-12.5)
[2023-08-30] MEDS: HYDROmorphone 1 MG/ML 1 ML SYRINGE IVP STA (19:50)
[2023-08-30] MEDS: PROCHLORPERAZINE INJ 10 MG/2 ML VIAL IVP STA (19:52)
[2023-08-30] MEDS: SODIUM CHLORIDE 0.9% 1,000 ML IV STA ×2 (19:52)
[2023-08-30 20:00] LABS: ALT 39 U/L (4-34); AST 167 U/L (14-36); African American GFR (CKD) >90 (>60 ml/min/1.73 sqM); Albumin 3.3 g/dL (3.5-5.0); Alkaline Phosphatase 414 U/L (38-126); Anion Gap 11 mmol/L; Blood Urea Nitrogen 14 mg/dL (7-17); Calcium 8.5 mg/dL (8.4-10.2); Carbon Dioxide 18 mmol/L (22-30); Chloride 109 mmol/L (98-107); Creatine Kinase 178 U/L (30-135); Glucose 155 mg/dL (74-99); Non-African American GFR(CKD) >90 (>60 ml/min/1.73 sqM); Platelet Count 24 k/uL (150-450); Potassium 4.6 mmol/L (3.5-5.1); Sodium 138 mmol/L (137-145); Total Bilirubin 0.9 mg/dL (0.2-1.3); Total Protein 6.1 g/dL (6.3-8.2)
[2023-08-30] MEDS: ONDANSETRON 4 MG/2 ML VIAL IVP STA (20:20)
[2023-08-30] MEDS: droPERidol 5 MG/2 ML VIAL IVP ONE (22:21)
--- NOTE | 2023-08-30 23:00 | CT ---
EXAMINATION TYPE: CT brain wo con DATE OF EXAM: 08/30/2023 COMPARISON: None INDICATION: Pt c/o n/v and headache starting this morning. Per pts pt had slurred speech star ting at apporx 1130 this morning. Pt also c/o facial numbness. Hx endometrial cancer. DLP: mGycm, Automated exposure control for dose reduction was used. CONTRAST: None CT of the brain is performed utilizing 3 mm thick sections through the posterior fossa and 3 mm thick sections through the remaining calvarium. Study is performed within 24 hours of arrival to the hosp ital. No abnormal hyperdensity is present to suggest an acute intracranial hemorrhage. There is a very subtle isodense area measuring 1.1 cm in the lateral temporal lobe. Series 202 image 24. Underlying mass should be considered. Significant vasogenic edema however is not evident. This co uld be artifact, this is not clearly identified on the coronal or sagittal plane images. Additional w orkup with MRI is recommended. No acute infarcts are evident. Ventricles and sulci are appropriate for the patient age. No effacement of the ventricles or sulci i s evident. No extra-axial effect is evident. Paranasal sinuses and mastoid air cells within the [id number] are clear. IMPRESSION: 1. There is an isodense area in the proximal right temporal lobe of uncertain etiology. Artifact is favored although mass is within the differential. Additional evaluation with MRI with contrast is re commended. 2. Remaining portions of the brain appear unremarkable.
[2023-08-30] MEDS ORDERED: NALOXONE 0.4 MG/ML 1 ML VIAL IV PRN (23:17)
[2023-08-30] MEDS ORDERED: MORPHINE SULFATE 4 MG/ML SYRINGE IV PRN (23:17)
--- NOTE | 2023-08-30 23:18 | XR ---
EXAMINATION TYPE: XR chest 2V DATE OF EXAM: 08/30/2023 COMPARISON: 09/16/2015 INDICATION: Altered mental status TECHNIQUE: Frontal and lateral views of the chest are obtained. FINDINGS: The heart size is normal. The pulmonary vasculature is normal. The lungs are clear. IMPRESSION: 1. No acute pulmonary process.
[2023-08-31] MEDS: SODIUM CHLORIDE 0.9% 1,000 ML IV SCH (00:32)
[2023-08-31] MEDS: ONDANSETRON 4 MG/2 ML VIAL IVP PRN (00:38)
[2023-08-31 01:13] LABS: Glucose,Whole Blood 180 mg/dL (70-110)
[2023-08-31] MEDS: ACETAMINOPHEN IV (For NPO) 1,000 MG in EMPTY BAG 1 BAG IVPB SCH (02:32)
[2023-08-31] MEDS: METOCLOPRAMIDE 5 MG/ML 2 ML VIAL IVP SCH (02:33)
[2023-08-31] MEDS: HYDROmorphone 1 MG/ML 1 ML SYRINGE IVP PRN (04:40)
[2023-08-31 06:11] LABS: Glucose,Whole Blood 162 mg/dL (70-110)
[2023-08-31 08:01] LABS: Anisocytosis Slight; Basophils % (A) 1 %; Eosinophils # (A) 0.1 k/uL (0-0.7); Eosinophils % (A) 2 %; Lymphocytes # (A) 2.4 k/uL (1.0-4.8); Lymphocytes % (A) 36 %; MCH 29.3 pg (25.0-35.0); MCHC 33.1 g/dL (31.0-37.0); MCV 88.7 fL (80.0-100.0); Mean Platelet Volume 9.8; Monocytes # (A) 0.5 k/uL (0-1.0); Monocytes % (A) 8 %; Neutrophils # (A) 3.3 k/uL (1.3-7.7); Neutrophils % (A) 50 %; Poikilocytosis Slight; RBC 2.26 m/uL (3.80-5.40); RDW 17.4 % (11.5-15.5); WBC 6.5 k/uL (3.8-10.6)
[2023-08-31 08:07] LABS: ALT 36 U/L (4-34); AST 148 U/L (14-36); African American GFR (CKD) >90 (>60 ml/min/1.73 sqM); Albumin 2.8 g/dL (3.5-5.0); Alkaline Phosphatase 328 U/L (38-126); Anion Gap 12 mmol/L; Blood Urea Nitrogen 13 mg/dL (7-17); Calcium 7.5 mg/dL (8.4-10.2); Carbon Dioxide 15 mmol/L (22-30); Chloride 112 mmol/L (98-107); Glucose 142 mg/dL (74-99); Lipase 644 U/L (23-300); Non-African American GFR(CKD) >90 (>60 ml/min/1.73 sqM); Potassium 3.9 mmol/L (3.5-5.1); Sodium 139 mmol/L (137-145); Total Bilirubin 0.5 mg/dL (0.2-1.3); Total Protein 5.3 g/dL (6.3-8.2)
[2023-08-31 08:21] LABS: HGB 6.6 gm/dL (11.4-16.0)
[2023-08-31 08:34] LABS: Platelet Count 21 k/uL (150-450)
[2023-08-31] MEDS ORDERED: SUCRALFATE 1 GM TAB PO PRN (09:34)
[2023-08-31] MEDS ORDERED: METOCLOPRAMIDE 10 MG TAB PO PRN (09:34)
[2023-08-31] MEDS ORDERED: DEXTROSE 50% SYRINGE 50 ML IVP PRN ×2 (09:36)
[2023-08-31] MEDS: PANTOPRAZOLE 40 MG/10 ML VIAL IVP SCH (10:01)
[2023-08-31 11:19] LABS: Glucose,Whole Blood 147 mg/dL (70-110)
[2023-08-31] MEDS: INSULIN ASPART (NovoLOG) 100 UNIT/ML VIAL SQ SCH (12:17)
--- NOTE | 2023-08-31 13:06 | P.HPIM ---
History of Present Illness H&P Date: 08/31/23 History of present illness; Patient is a 53-year-old female with a known history of hypertension, hyperlipidemia, GERD, diabetes type 2 insulin-dependent, stage IV endometrial cancer diagnosed in 2009 with recurrence in 2014 currently in remission, history of PE, hypothyroidism, anxiety/depression and other medical problems presents to ER for nausea vomiting and headache. Patient has been following up outpatient hematology oncology and currently is on treatment for endometrial carcinoma. Patient was recently admitted a month ago for anemia and thrombocytopenia secondary to chemotherapy. Patient was not feeling well for the last few days. Denies any fever or chills. There is no complaint of chest pain or shortness of breath. Denies any abdominal pain. Patient is complaining of headache. Did complain of slurred speech. Denies any weakness of any extremity. Because of the symptoms, patient went to the ER Initial lab work done in the ER showed WBC 6, hemoglobin 8.4, platelet count 24 PT 11.2, INR 1, sodium 1 3, potassium 4.6, chloride 109, pulmonary rate 18, anion gap 11, creatinine 0.41, glucose 155, calcium 8.5, AST 167, ALT 39, alk phos 414, troponin 0.012 EKG done in the ER showed heart rate of 125, no ST segment elevation or depression seen, no T-wave inversions seen. Chest x-ray done in the ER showed no acute cardiopulmonary process CT head done showed isodense mass in the proximal right temporal lobe, artifact is favored although mass is in the differential. Patient admitted to internal medicine service REVIEW OF SYSTEMS: CONSTITUTIONAL: As mentioned above HEENT: No recent visual problems or hearing problems. Denied any sore throat. CARDIOVASCULAR: No chest pain, orthopnea, PND, no palpitations, no syncope. PULMONARY: No shortness of breath, no cough, no hemoptysis. GASTROINTESTINAL: As mentioned above NEUROLOGICAL: As mentioned above HEMATOLOGICAL: Denies any bleeding or petechiae. GENITOURINARY: Denies any burning micturition, frequency, or urgency. MUSCULOSKELETAL/RHEUMATOLOGICAL: Denies any joint pain, swelling, or any muscle pain. ENDOCRINE: Denies any polyuria or polydipsia. The rest of the 14-point review of systems is negative. PHYSICAL EXAMINATION: GENERAL: The patient is alert and oriented x3, not in any acute distress. C hronically ill looking HEENT: Pupils are round and equally reacting to light. EOMI. No scleral icterus. No conjunctival pallor. Normocephalic, atraumatic. No pharyngeal erythema. No thyromegaly. CARDIOVASCULAR: S1 and S2 present. No murmurs, rubs, or gallops. PULMONARY: Chest is clear to auscultation, no wheezing or crackles. ABDOMEN: Soft, nontender, nondistended, normoactive bowel sounds. No palpable organomegaly. MUSCULOSKELETAL: No joint swelling or deformity. EXTREMITIES: No cyanosis, clubbing, or pedal edema. NEUROLOGICAL: Gross neurological examination did not reveal any focal deficits. SKIN: No rashes. Assessment and plan Nausea and vomiting Headaches Thrombocytopenia Acute transaminitis Anemia due to chemotherapy Symptomatic anemia Stage IV endometrial adenocarcinoma currently on oral chemo, cabozantinib Hypertension Hyperlipidemia Diabetes type 2 insulin-dependent History of PE Hypothyroidism History of ureteral stent placement Anxiety/depression Monitor vital signs Monitor CBC Monitor CMP Continue telemetry monitoring Continue IV fluids Continue antiemetics Continue IV Protonix Transfuse 1 unit of packed red blood cell Ordered MRI brain Currently on cabozantinib 40 mg daily for her Endometrial carcinoma in outpatient setting Consult hematology oncology Consult neurology Labs and medication were reviewed.. Continue same treatment. Continue with symptomatic treatment. Resume home medication. Monitor labs and vitals. DVT and GI prophylaxis. Further recommendations as per clinical course of the patient Dictation was produced using [employer] dictation software. please excuse any grammatical, word or spelling errors. Past Medical History Past Medical History: Cancer, Diabetes Mellitus, GERD/Reflux, Hyperlipidemia, Hypertension, Musculoskeletal Disorder, Pulmonary Embolus (PE), Thyroid Disorder Additional Past Medical History / Comment(s): stage 4 endometrial cancer 2009 with reoccurence lymph node ca. 2015 currently in remission OCC uses nebulizer for environmental allergies. THYROID NODULES. SHOULDER PROB, RT WORSE. RT RING TRIGGER FINGER. Uterine Cancer. Ureter Stent History of Any Multi-Drug Resistant Organisms: None Reported Past Surgical History: Section, Hernia Repair, Hysterectomy, Tonsillectomy Additional Past Surgical History / Comment(s): Nixon Trigger thumb surgery. Radical hysterectomy, rt ring finger,rt middle finger,lt pointer finger 03/25 Past Anesthesia/Blood Transfusion Reactions: No Reported Reaction, Family History of Problems w/ Anesthesia, Motion Sickness Additional Past Anesthesia/Blood Transfusion Reaction / Comment(s): SIBLINGS HAVE PONV. pt claustrophobic. Past Psychological History: Anxiety, Depression Additional Psychological History / Comment(s): MILD, R/T HEALTH PROB. Smoking Status: Former smoker Past Alcohol Use History: None Reported Additional Past Alcohol Use History / Comment(s): SMOKED 25+ YEARS, 1 PPD, QUIT 2009. vapes Past Drug Use History: None Reported - Past Family History Mother Family Medical History: Diabetes Mellitus Additional Family Medical History / Comment(s): heart valve replaced Father Family Medical History: Cancer Additional Family Medical History / Comment(s): prostate cancer Medications and Allergies Home Medications Medication Instructions Recorded Confirmed Type Insulin Aspart [NovoLOG Flexpen] 10 units SQ AC-TID PRN 06/02/19 08/31/23 History Insulin Glargine,Hum.rec.anlog 27 units SQ HS 03/28/22 08/31/23 History [Lantus Solostar Pen] Omeprazole [PriLOSEC] 40 mg PO BID 03/28/22 08/31/23 History Pioglitazone [Actos] 15 mg PO DAILY 03/28/22 08/31/23 History lisinopriL [Prinivil] 20 mg PO DAILY 03/28/22 08/31/23 History Biotin [Qoaj-Eoin-Tmntv] 10,000 mcg PO DAILY 07/30/23 08/31/23 History Metoclopramide [Reglan] 10 mg PO Q6H PRN 07/30/23 08/31/23 History Ondansetron Odt [Zofran ODT] 4 mg PO Q6H PRN 07/30/23 08/31/23 History Sucralfate [Carafate] 1 gm PO Q6H PRN 07/30/23 08/31/23 History amLODIPine [Norvasc] 2.5 mg PO HS 07/30/23 08/31/23 History Loperamide [Imodium] 2 mg PO Q4H PRN 08/31/23 08/31/23 History Allergies Allergy/AdvReac Type Severity Reaction Status Date / Time diatrizoate meglumine Allergy Diarrhea Verified 08/31/23 12:00 (FROM GASTROGRAPHIN) morphine Allergy Nausea & Verified 08/31/23 12:00 Vomiting prochlorperazine AdvReac Nausea & Verified 08/31/23 12:00 [From Compazine] Vomiting Physical Exam Vitals: Vital Signs Temp Pulse Pulse Resp BP BP Pulse Ox 08/31/23 08:16 124 H 08/31/23 07:56 98.7 F 124 H 16 162/77 97 08/31/23 04:00 98.5 F 119 H 18 148/79 96 08/31/23 01:45 100.3 F H 129 H 16 161/89 92 L 08/31/23 01:30 129 H 16 08/31/23 00:47 118 H 19 143/83 97 08/30/23 23:07 131 H 18 133/72 97 08/30/23 21:12 124 H 18 166/90 97 08/30/23 18:36 120 H 18 134/80 97 08/30/23 17:27 98.8 F 131 H 18 139/87 96 Intake and Output 08/30/23 08/31/23 08/31/23 22:59 06:59 14:59 Output Total 300 Balance -300 Output: Gastric Drainage 300 Post Void Residual 0 Other: Voiding Method Toilet Toilet # Voids 0 Weight 60.781 kg 60.781 kg Results CBC & Chem 7: 08/31/23 07:24 08/31/23 07:24 Labs: Abnormal Lab Results - Last 24 Hours (Table) 08/30/23 08/30/23 08/31/23 Range/Units 19:14 19:14 01:11 RBC 2.81 L (3.80-5.40) m/uL Hgb 8.4 L (11.4-16.0) gm/dL Hct 24.7 L (34.0-46.0) % RDW 17.6 H (11.5-15.5) % Plt Count 24 L (150-450) k/uL Chloride 109 H (98-107) mmol/L Carbon Dioxide 18 L (22-30) mmol/L Creatinine 0.41 L (0.52-1.04) mg/dL Glucose 155 H (74-99) mg/dL POC Glucose (mg/dL) 180 H (70-110) mg/dL Calcium (8.4-10.2) mg/dL Magnesium (1.6-2.3) mg/dL AST 167 H (14-36) U/L ALT 39 H (4-34) U/L Alkaline Phosphatase 414 H (38-126) U/L Creatine Kinase 178 H (30-135) U/L Total Protein 6.1 L (6.3-8.2) g/dL Albumin 3.3 L (3.5-5.0) g/dL Lipase (23-300) U/L 08/31/23 08/31/23 08/31/23 Range/Units 06:09 07:24 07:24 RBC 2.26 L (3.80-5.40) m/uL Hgb 6.6 L* D (11.4-16.0) gm/dL Hct 20.0 L (34.0-46.0) % RDW 17.4 H (11.5-15.5) % Plt Count 21 L (150-450) k/uL Chloride 112 H (98-107) mmol/L Carbon Dioxide 15 L (22-30) mmol/L Creatinine 0.38 L (0.52-1.04) mg/dL Glucose 142 H (74-99) mg/dL POC Glucose (mg/dL) 162 H (70-110) mg/dL Calcium 7.5 L (8.4-10.2) mg/dL Magnesium 1.0 L (1.6-2.3) mg/dL AST 148 H (14-36) U/L ALT 36 H (4-34) U/L Alkaline Phosphatase 328 H (38-126) U/L Creatine Kinase (30-135) U/L Total Protein 5.3 L (6.3-8.2) g/dL Albumin 2.8 L (3.5-5.0) g/dL Lipase 644 H (23-300) U/L Thrombosis Risk Factor Assmnt - Choose All That Apply Each Factor Represents 1 point: Age 41-60 years Thrombosis Risk Factor Assessment Total Risk Factor Score: 1 Thrombosis Risk Factor Assessment Level: Low Risk
--- NOTE | 2023-08-31 14:04 | P.CNNES ---
History of Present Illness Consult date: 08/31/23 Requesting physician: Jose Garcia Reason for Consult: slurred speech History of Present Illness: This is a 53-year-old woman with history of endometrial cancer with mets to the liver and the bone who presents to the hospital with intractable vomiting headache and it appeared slurred speech. Patient is accompanied with her family members her and her sister who is at bedside. It seems that she has a h istory of endometrial cancer since 2009 and she had chemo and radiation therapy and continues to be on oral chemotherapy who recently has been having bilateral frontal headache and she feels 10/10 is a throbbing, she has nausea and vomiting that is recurrent. She denies any focal weakness or numbness. It seems that she is slurring of the speech. Patient stated because she is very lethargic presenting that she is slurring but she does not feel she is slurring. Per family member they feel sometimes she is confused as a result. Upon seeing her she was having vomiting episode. Does not have any history of stroke. No history of seizure. Does use tobacco. Denies any alcohol use or any illicit drug use. Some of the workup during this hospital visit consisted of: Her hemoglobin has dropped to 6.6 AST of 167 ALT is 39. I reviewed the rest of the lab workup CT of the head is reported as there is an isodense area in the proximal right temporal lobe uncertain etiology. Artifact is favored although a mass within the differential. Additional evaluation with MRI with contrast is recommended. Remaining portion of the brain appears unremarkable. I personally reviewed the CT and I see what radiologist reported an uncertain exact etiology Review of Systems Positive and negative as per HPI. Past Medical History Past Medical History: Cancer, Diabetes Mellitus, GERD/Reflux, Hyperlipidemia, Hypertension, Musculoskeletal Disorder, Pulmonary Embolus (PE), Thyroid Disorder Additional Past Medical History / Comment(s): stage 4 endometrial cancer 2009 with reoccurence lymph node ca. 2015 currently in remission OCC uses nebulizer for environmental allergies. THYROID NODULES. SHOULDER PROB, RT WORSE. RT RING TRIGGER FINGER. Uterine Cancer. Ureter Stent History of Any Multi-Drug Resistant Organisms: None Reported Past Surgical History: Section, Hernia Repair, Hysterectomy, Tonsillectomy Additional Past Surgical History / Comment(s): Nixon Trigger thumb surgery. Radical hysterectomy, rt ring finger,rt middle finger,lt pointer finger 12/18 Past Anesthesia/Blood Transfusion Reactions: No Reported Reaction, Family History of Problems w/ Anesthesia, Motion Sickness Additional Past Anesthesia/Blood Transfusion Reaction / Comment(s): SIBLINGS HAVE PONV. pt claustrophobic. Past Psychological History: Anxiety, Depression Additional Psychological History / Comment(s): MILD, R/T HEALTH PROB. Smoking Status: Former smoker Past Alcohol Use History: None Reported Additional Past Alcohol Use History / Comment(s): SMOKED 25+ YEARS, 1 PPD, QUIT 2009. vapes Past Drug Use History: None Reported - Past Family History Mother Family Medical History: Diabetes Mellitus Additional Family Medical History / Comment(s): heart valve replaced Father Family Medical History: Cancer Additional Family Medical History / Comment(s): prostate cancer Medications and Allergies Home Medications Medication Instructions Recorded Confirmed Type Insulin Aspart [NovoLOG Flexpen] 10 units SQ AC-TID PRN 06/02/19 08/31/23 History Insulin Glargine,Hum.rec.anlog 27 units SQ HS 03/28/22 08/31/23 History [Lantus Solostar Pen] Omeprazole [PriLOSEC] 40 mg PO BID 03/28/22 08/31/23 History Pioglitazone [Actos] 15 mg PO DAILY 03/28/22 08/31/23 History lisinopriL [Prinivil] 20 mg PO DAILY 03/28/22 08/31/23 History Biotin [Yadp-Mujd-Xpies] 10,000 mcg PO DAILY 07/30/23 08/31/23 History Metoclopramide [Reglan] 10 mg PO Q6H PRN 07/30/23 08/31/23 History Ondansetron Odt [Zofran ODT] 4 mg PO Q6H PRN 07/30/23 08/31/23 History Sucralfate [Carafate] 1 gm PO Q6H PRN 07/30/23 08/31/23 History amLODIPine [Norvasc] 2.5 mg PO HS 07/30/23 08/31/23 History Loperamide [Imodium] 2 mg PO Q4H PRN 08/31/23 08/31/23 History Allergies Allergy/AdvReac Type Severity Reaction Status Date / Time diatrizoate meglumine Allergy Diarrhea Verified 08/31/23 12:00 (FROM GASTROGRAPHIN) morphine Allergy Nausea & Verified 08/31/23 12:00 Vomiting prochlorperazine AdvReac Nausea & Verified 08/31/23 12:00 [From Compazine] Vomiting Physical Examination - Vital Signs Vital Signs: Vital Signs Temp Pulse Pulse Resp BP BP Pulse Ox 08/31/23 13:16 95 17 158/70 100 08/31/23 12:56 95 18 129/67 98 08/31/23 12:55 95 18 129/67 98 08/31/23 12:34 97.4 F L 125 H 17 144/81 96 08/31/23 11:16 110 H 17 134/64 98 08/31/23 08:16 124 H 08/31/23 07:56 98.7 F 124 H 16 162/77 97 08/31/23 04:00 98.5 F 119 H 18 148/79 96 08/31/23 01:45 100.3 F H 129 H 16 161/89 92 L 08/31/23 01:30 129 H 16 08/31/23 00:47 118 H 19 143/83 97 08/30/23 23:07 131 H 18 133/72 97 08/30/23 21:12 124 H 18 166/90 97 08/30/23 18:36 120 H 18 134/80 97 08/30/23 17:27 98.8 F 131 H 18 139/87 96 Intake and Output 08/30/23 08/31/23 08/31/23 22:59 06:59 14:59 Intake Total 0 Output Total 300 Balance -300 0 Intake: Blood Product 0 Rc As-1 Unit 0 [id number] Output: Gastric Drainage 300 Post Void Residual 0 Other: Voiding Method Toilet Toilet # Voids 0 Weight 60.781 kg 60.781 kg General: Sitting up in bed and having recurrent vomiting. Neuro: Limited. Patient is oriented to self, place and time. She is following simple commands limitation of the examination. Pupils are round equal reactive to light. Visual martell is normal. Extraocular movement is intact. No facial weakness. No dysarthria from the limited language Motor strength is hard to assess because of her cooperation and having recurrent vomiting but she is able to lift up bilateral upper extremities above gravity equally. Results - Laboratory Findings CBC and BMP: 08/31/23 07:24 08/31/23 07:24 Abnormal Lab Findings: Abnormal Labs 08/30/23 08/30/23 08/31/23 19:14 19:14 01:11 RBC 2.81 L Hgb 8.4 L Hct 24.7 L RDW 17.6 H Plt Count 24 L Chloride 109 H Carbon Dioxide 18 L Creatinine 0.41 L Glucose 155 H POC Glucose (mg/dL) 180 H Calcium Magnesium AST 167 H ALT 39 H Alkaline Phosphatase 414 H Creatine Kinase 178 H Total Protein 6.1 L Albumin 3.3 L Lipase Crossmatch 08/31/23 08/31/23 08/31/23 06:09 07:24 07:24 RBC 2.26 L Hgb 6.6 L* D Hct 20.0 L RDW 17.4 H Plt Count 21 L Chloride 112 H Carbon Dioxide 15 L Creatinine 0.38 L Glucose 142 H POC Glucose (mg/dL) 162 H Calcium 7.5 L Magnesium 1.0 L AST 148 H ALT 36 H Alkaline Phosphatase 328 H Creatine Kinase Total Protein 5.3 L Albumin 2.8 L Lipase 644 H Crossmatch 08/31/23 08/31/23 10:16 11:16 RBC Hgb Hct RDW Plt Count Chloride Carbon Dioxide Creatinine Glucose POC Glucose (mg/dL) 147 H Calcium Magnesium AST ALT Alkaline Phosphatase Creatine Kinase Total Protein Albumin Lipase Crossmatch See Detail Assessment and Plan Assessment: This is a 53-year-old woman with stage IV endometrial cancer who is having bi lateral frontal headache, intractable nausea vomiting with reported slurred speech. To the head shows isodense area in the proximal right temporal of uncertain etiology. Intractable nausea vomiting with headache, transient dysarthria and CT head shows isodense over the proximal right temporal: Rule out brain mets Stage IV endometrial cancer (mets to liver and bone) and patient received radiation therapy chemotherapy and she continues to be on oral chemotherapy Mild transminitis due to mets to liver Tobacco use Plan: MRI of the brain with and without is ordered and is pending. No recurrent nausea and vomiting and it can be difficult to obtain the MRI at this point. I will get a repeat CT of the head but this time with and without Oncology is consulted Patient is on Reglan, Compazine. Pain she is on Dilaudid as needed. She was counseled on tobacco cessation. Will defer the rest of the medical management to primary team and other specialists The plan discussed with the patient and her family members who were her bedside as well as her nurse Thank you for the consultation Time with Patient: Greater than 30
--- NOTE | 2023-08-31 15:50 | P.CONS ---
History of Present Illness - Reason for Consult Consult date: 08/31/23 pt known to us, endometrial cancer Requesting physician: Kelvin Garcia - Chief Complaint slurred speech - History of Present Illness Ms. Urrutia is a very pleasant 53 yo female with history of metastatic endometrial cancer, s/p multiple lines of therapy, most recently on cabozantinib since 06/2023, who is here for slurred speech. Work up with bicytopenia, Hgb 8 adn plt 20's, on repeat CBC Hgb down to 6 and plt stable overall in 20's. CT head with possible abnormality, artifact likely but cannot rule out met's. She was admitted and we were consulted. Trending her CBC, her Hgb and plt have been decreasing over past few months, since starting cabozantinib. Hospitalized in 07/2023 briefly for Hgb 5. No signs of bleeding. Oncologic History: This is a very nice lady who was initially diagnosed with stage IVB endometrial carcinoma,undiferrentiated adenocarcinoma with focal endometroid features,in 12/2009,she had radical hysterectomy and BSO,omentectomy,resection of superficial rectal nodule and debulking surgery. On 12/19/2009,she developed PE,had IVC filter and was treated with6 months of warfarin. She completed 6 cycles of adjuvant carbo/taxol on 05/01/2010. On 06/24/2015,CT scan of revealed multiple paraaortic,aortocaval gastrohepatic nodes up to 1 cm,she completed 6 cycles of caarbo/taxol on 12/14/2015. On 01/29/2016,she started letrozole. The above treatment was provided by Dr Gonzalez then transferred to [facility] On 08/23/2020,CA 125 went up which led to repeat CT scan which showe newly enlarged gastrohepatic nodes,she completed radiation therapy to it on 12/02/2020. On 07/20/2021,she presented with unexplained weight loss and rising CA125,CT scan on 07/25/2021 showed new enlarged retroperitoneal and upper abdomen nodes. On 08/07/2021,she started lenvatinib and keytruda. On 05/21/2022,PET/CT revealed evidence of disease progression multiple enlarged nodes and osseous mets. On 06/19/2022,she started avastin every 3 weeks and then carbo/taxol was added to cycle#2. She required dose reduction of taxol to 150 mg/m2 and of carbo to AUC of 5. On 12/11/2022,she started maintenance avastin/zometa. her last avastin/zometa was on 01/01/2023 at [facility],CA125 the same day was up to 335 from 213 prior. She came to see on 01/15/2023 me to establish care closer to home. Liquid biopsy on 01/15/2023,revealed no actionable mutation,CA125 was up to 890. On 02/07/2023,CA125 was 1737. On 03/05/2023,echo showed normal EF She started megace,however,on 03/11/2023,CA125 was 5237,due to rising CA125,megace was discontinued and started Doxil on 03/19/2023. She continues on zometa On 04/22/2023,CA125 was 8765 On 05/14/2023,doxil was discontinued due to disease progression and rising CA125. On 06/14/2023,CA125 was 8185. On 07/04/2023 showed diffuse osseous mets,new liver lesions. She started cabozatinib end of June/2023 Last office visit on 08/20/[address] Mcdonald, plan was to repeat CA 125 and continue cabozantinib if improving, otherwise hold cabozantinib and newly approved med, ADC,Tivdak, was discussed. pRBC was ordered. Past Medical History Past Medical History: Cancer, Diabetes Mellitus, GERD/Reflux, Hyperlipidemia, Hypertension, Musculoskeletal Disorder, Pulmonary Embolus (PE), Thyroid Disorder Additional Past Medical History / Comment(s): stage 4 endometrial cancer 2009 with reoccurence lymph node ca. 2014 currently in remission OCC uses nebulizer for environmental allergies. THYROID NODULES. SHOULDER PROB, RT WORSE. RT RING TRIGGER FINGER. Uterine Cancer. Ureter Stent History of Any Multi-Drug Resistant Organisms: None Reported Past Surgical History: Section, Hernia Repair, Hysterectomy, To nsillectomy Additional Past Surgical History / Comment(s): Nixon Trigger thumb surgery. Radical hysterectomy, rt ring finger,rt middle finger,lt pointer finger 03/25 Past Anesthesia/Blood Transfusion Reactions: No Reported Reaction, Family History of Problems w/ Anesthesia, Motion Sickness Additional Past Anesthesia/Blood Transfusion Reaction / Comm: SIBLINGS HAVE PONV. pt claustrophobic. Past Psychological History: Anxiety, Depression Additional Psychological History / Comment(s): MILD, R/T HEALTH PROB. Smoking Status: Former smoker Past Alcohol Use History: None Reported Additional Past Alcohol Use History / Comment(s): SMOKED 25+ YEARS, 1 PPD, QUIT 2009. vapes Past Drug Use History: None Reported - Past Family History Mother Family Medical History: Diabetes Mellitus Additional Family Medical History / Comment(s): heart valve replaced Father Family Medical History: Cancer Additional Family Medical History / Comment(s): prostate cancer Medications and Allergies Home Medications Medication Instructions Recorded Confirmed Type Insulin Aspart [NovoLOG Flexpen] 10 units SQ AC-TID PRN 06/02/19 08/31/23 History Insulin Glargine,Hum.rec.anlog 27 units SQ HS 03/28/22 08/31/23 History [Lantus Solostar Pen] Omeprazole [PriLOSEC] 40 mg PO BID 03/28/22 08/31/23 History Pioglitazone [Actos] 15 mg PO DAILY 03/28/22 08/31/23 History lisinopriL [Prinivil] 20 mg PO DAILY 03/28/22 08/31/23 History Biotin [Vyvk-Ikrj-Undns] 10,000 mcg PO DAILY 07/30/23 08/31/23 History Metoclopramide [Reglan] 10 mg PO Q6H PRN 07/30/23 08/31/23 History Ondansetron Odt [Zofran ODT] 4 mg PO Q6H PRN 07/30/23 08/31/23 History Sucralfate [Carafate] 1 gm PO Q6H PRN 07/30/23 08/31/23 History amLODIPine [Norvasc] 2.5 mg PO HS 07/30/23 08/31/23 History Loperamide [Imodium] 2 mg PO Q4H PRN 08/31/23 08/31/23 History Allergies Allergy/AdvReac Type Severity Reaction Status Date / Time diatrizoate meglumine Allergy Diarrhea Verified 08/31/23 12:00 (FROM GASTROGRAPHIN) morphine Allergy Nausea & Verified 08/31/23 12:00 Vomiting prochlorperazine AdvReac Nausea & Verified 08/31/23 12:00 [From Compazine] Vomiting Physical Exam Vitals: Vital Signs Temp Pulse Pulse Resp BP BP Pulse Ox 08/31/23 08:16 124 H 08/31/23 07:56 98.7 F 124 H 16 162/77 97 08/31/23 04:00 98.5 F 119 H 18 148/79 96 08/31/23 01:45 100.3 F H 129 H 16 161/89 92 L 08/31/23 01:30 129 H 16 08/31/23 00:47 118 H 19 143/83 97 08/30/23 23:07 131 H 18 133/72 97 08/30/23 21:12 124 H 18 166/90 97 08/30/23 18:36 120 H 18 134/80 97 08/30/23 17:27 98.8 F 131 H 18 139/87 96 Intake and Output 08/30/23 08/31/23 08/31/23 22:59 06:59 14:59 Output Total 300 Balance -300 Output: Gastric Drainage 300 Post Void Residual 0 Other: Voiding Method Toilet Toilet # Voids 0 Weight 60.781 kg 60.781 kg Pt in no acute distress. Alert and oriented x 3. No respiratory distress. Results CBC & Chem 7: 08/31/23 07:24 08/31/23 07:24 Labs: Abnormal Lab Results - Last 24 Hours (Table) 08/30/23 08/30/23 08/31/23 Range/Units 19:14 19:14 01:11 RBC 2.81 L (3.80-5.40) m/uL Hgb 8.4 L (11.4-16.0) gm/dL Hct 24.7 L (34.0-46.0) % RDW 17.6 H (11.5-15.5) % Plt Count 24 L (150-450) k/uL Chloride 109 H (98-107) mmol/L Carbon Dioxide 18 L (22-30) mmol/L Creatinine 0.41 L (0.52-1.04) mg/dL Glucose 155 H (74-99) mg/dL POC Glucose (mg/dL) 180 H (70-110) mg/dL Calcium (8.4-10.2) mg/dL Magnesium (1.6-2.3) mg/dL AST 167 H (14-36) U/L ALT 39 H (4-34) U/L Alkaline Phosphatase 414 H (38-126) U/L Creatine Kinase 178 H (30-135) U/L Total Protein 6.1 L (6.3-8.2) g/dL Albumin 3.3 L (3.5-5.0) g/dL Lipase (23-300) U/L 08/31/23 08/31/23 08/31/23 Range/Units 06:09 07:24 07:24 RBC 2.26 L (3.80-5.40) m/uL Hgb 6.6 L* D (11.4-16.0) gm/dL Hct 20.0 L (34.0-46.0) % RDW 17.4 H (11.5-15.5) % Plt Count 21 L (150-450) k/uL Chloride 112 H (98-107) mmol/L Carbon Dioxide 15 L (22-30) mmol/L Creatinine 0.38 L (0.52-1.04) mg/dL Glucose 142 H (74-99) mg/dL POC Glucose (mg/dL) 162 H (70-110) mg/dL Calcium 7.5 L (8.4-10.2) mg/dL Magnesium 1.0 L (1.6-2.3) mg/dL AST 148 H (14-36) U/L ALT 36 H (4-34) U/L Alkaline Phosphatase 328 H (38-126) U/L Creatine Kinase (30-135) U/L Total Protein 5.3 L (6.3-8.2) g/dL Albumin 2.8 L (3.5-5.0) g/dL Lipase 644 H (23-300) U/L Assessment and Plan Assessment: 1. slurred speech 2. brain lesion on CT 3. metastatic uterine cancer 4. chemotherapy induced bicytopenia, anemia and thrombocytopenia 5. chemotherapy induced nausea, vomiting Plan: Ms. Urrutia is a very pleasant 53 yo female with history of metastatic uterine cancer, s/p multiple lines of therapy, most recently on cabozantinib, here for slurred speech. CT head reviewed, small lesion of unclear etiology, artifact vs malignant - MRI brain to better characterise change seen on CT - Having increased jaw/facial pain and intractable vomiting, will likely need CT jaw/CAP and bone scan - Hold cabozantinib, pt recently stopped this and plan on new therapy once arrangements completed - For her chemo induced bicytopenia, monitor CBC transfuse to maintain Hgb >7 and plt >20 - Monitor for bleeding, currently no signs of bleeding Discussed with pt and family and they are agreeable. All questions answered. Discussed with nursing staff.
[2023-08-31 16:20] LABS: Glucose,Whole Blood 136 mg/dL (70-110)
--- NOTE | 2023-08-31 16:42 | CT ---
EXAMINATION TYPE: CT brain wo/w con CT DLP: 2154.4 mGycm, Automated exposure control for dose reduction was used. DATE OF EXAM: 08/31/2023 1:58 PM COMPARISON: CT brain without contrast 08/30/2023 10:43 PM. CLINICAL INDICATION:Female, 53 years old with history of HALE, slurred speech, r/o brain mets; [facility], HALE, slurred speech, r/o brain mets TECHNIQUE: CT of the brain was performed without and with IV contrast administration. Contrast used:100ml mL of Isovue 300 Oral contrast used: none. FINDINGS: Subtly seen on noncontrast CT there is the suggestion of small volume extra-axial curvilinear increas ed attenuation over the right frontal region suggestive of subarachnoid hemorrhage. There is otherwis e no acute intracranial hemorrhage, midline shift, or mass effect evident. Ventricles are normal in s ize and position. The basal cisterns are patent. No significant atrophy or white matter changes by CT . No loss of boyer/white matter distinction to suggest acute territorial infarct. No acute osseous abnormalities. No significant fluid in the paranasal sinuses. Right mastoid air cell s are clear. On the left, there is a small amount of fluid in a few mastoid air cells without evidenc e of trabecular disruption to suggest mastoiditis. Postcontrast, there is no distinct evidence of an intracranial enhancing mass. There is grossly prese rved enhancement of the intracranial vasculature, in the limits of CT. Note: Small lesions may not be, and often are not, evident on CT. For greater sensitivity, contrast M RI is generally the recommended study of choice for detecting metastases if at all possible. IMPRESSION: * Suspicion for small volume subarachnoid hemorrhage over the right frontal region. * No CT evidence of enhancing intracranial metastasis. * No mass effect or midline shift. RECOMMENDATION: * Further evaluation with MR brain without and with contrast, and MRA head. * If for some reason the patient cannot have MRI, recommend close CT follow-up, and CTA head.
[2023-08-31] MEDS: LORazepam 1 MG/0.5 ML VIAL IV PRN (20:11)
[2023-08-31 20:28] LABS: Glucose,Whole Blood 138 mg/dL (70-110)
[2023-08-31] MEDS: amLODIPine 2.5 MG TAB PO SCH (20:54)
[2023-09-01 06:09] LABS: Glucose,Whole Blood 134 mg/dL (70-110)
[2023-09-01 09:38] LABS: Anisocytosis Slight; HCT 27.1 % (34.0-46.0); Hypochromasia Marked; MCHC 31.1 g/dL (31.0-37.0); Macrocytosis Slight; Mean Platelet Volume 8.7; Poikilocytosis Slight; RBC 2.81 m/uL (3.80-5.40); RDW 16.8 % (11.5-15.5); WBC 7.8 k/uL (3.8-10.6)
[2023-09-01 09:41] LABS: ALT 29 U/L (4-34); AST 148 U/L (14-36); African American GFR (CKD) >90 (>60 ml/min/1.73 sqM); Alkaline Phosphatase 307 U/L (38-126); Anion Gap 15 mmol/L; Blood Urea Nitrogen 7 mg/dL (7-17); Calcium 8.1 mg/dL (8.4-10.2); Carbon Dioxide 10 mmol/L (22-30); Chloride 113 mmol/L (98-107); Glucose 138 mg/dL (74-99); Magnesium 1.2 mg/dL (1.6-2.3); Non-African American GFR(CKD) >90 (>60 ml/min/1.73 sqM); Potassium 3.6 mmol/L (3.5-5.1); Sodium 138 mmol/L (137-145); Total Bilirubin 0.7 mg/dL (0.2-1.3); Total Protein 5.6 g/dL (6.3-8.2)
[2023-09-01 09:43] LABS: HGB 8.4 gm/dL (11.4-16.0)
[2023-09-01 09:48] LABS: MCV 96.5 fL (80.0-100.0)
[2023-09-01 10:10] LABS: Platelet Count 20 k/uL (150-450)
[2023-09-01 11:25] LABS: Glucose,Whole Blood 139 mg/dL (70-110)
--- NOTE | 2023-09-01 11:56 | P.PN ---
Subjective Progress Note Date: 09/01/23 I am following-up with patient and it seems the patient continues to have intractable nausea and vomiting per nurse. She had CT head and showed ?suspicion for small subarachnoid hemorrhage over the right frontal region. No CT evidence of enhancing intrcranial metastatsis. Otherwise no new neurological issues. Objective - Vital Signs Vital signs: Vital Signs Temp 97.8 F 09/01/23 08:25 Pulse 106 H 09/01/23 11:36 Resp 17 09/01/23 11:36 BP 167/81 09/01/23 11:36 Pulse Ox 99 09/01/23 11:36 FiO2 Intake & Output 08/31/23 09/01/23 09/01/23 18:59 06:59 18:59 Intake Total 310 0 Output Total 200 Balance 310 -200 0 Intake: Oral 0 0 Blood Product 310 Rc As-1 Unit 310 [id number] Output: Emesis 200 Other: Voiding Method Toilet Toilet Toilet # Voids 3 1 - Exam General: Lying in bed and does not appear in acute distres Neuro: Limited since is sleeping. Some of the workup during this hospital visit consisted of: Her hemoglobin has dropped to 6.6-->8.4 AST of 167 ALT is 39. I reviewed the rest of the lab workup CT of the head is reported as there is an isodense area in the proximal right temporal lobe uncertain etiology. Artifact is favored although a mass within the differential. Additional evaluation with MRI with contrast is recommended. Remaining portion of the brain appears unremarkable. I personally reviewed the CT and I see what radiologist reported an uncertain exact etiology Repeat CT head and showed ?suspicion for small subarachnoid hemorrhage over the right frontal region. No CT evidence of enhancing intrcranial metastatsis. I reviewed CT head and not convinced with subarachnoid. - Labs CBC & Chem 7: 09/01/23 08:45 09/01/23 08:45 Labs: Abnormal Lab Results - Last 24 Hours (Table) 08/31/23 08/31/23 08/31/23 Range/Units 10:16 16:17 20:26 RBC (3.80-5.40) m/uL Hgb (11.4-16.0) gm/dL Hct (34.0-46.0) % RDW (11.5-15.5) % Plt Count (150-450) k/uL Chloride (98-107) mmol/L Carbon Dioxide (22-30) mmol/L Creatinine (0.52-1.04) mg/dL Glucose (74-99) mg/dL POC Glucose (mg/dL) 136 H 138 H (70-110) mg/dL Calcium (8.4-10.2) mg/dL Magnesium (1.6-2.3) mg/dL AST (14-36) U/L Alkaline Phosphatase (38-126) U/L Total Protein (6.3-8.2) g/dL Albumin (3.5-5.0) g/dL Crossmatch See Detail 09/01/23 09/01/23 09/01/23 Range/Units 06:08 08:45 08:45 RBC 2.81 L (3.80-5.40) m/uL Hgb 8.4 L D (11.4-16.0) gm/dL Hct 27.1 L (34.0-46.0) % RDW 16.8 H (11.5-15.5) % Plt Count 20 L (150-450) k/uL Chloride 113 H (98-107) mmol/L Carbon Dioxide 10 L (22-30) mmol/L Creatinine 0.32 L (0.52-1.04) mg/dL Glucose 138 H (74-99) mg/dL POC Glucose (mg/dL) 134 H (70-110) mg/dL Calcium 8.1 L (8.4-10.2) mg/dL Magnesium 1.2 L (1.6-2.3) mg/dL AST 148 H (14-36) U/L Alkaline Phosphatase 307 H (38-126) U/L Total Protein 5.6 L (6.3-8.2) g/dL Albumin 3.0 L (3.5-5.0) g/dL Crossmatch 09/01/23 Range/Units 11:23 RBC (3.80-5.40) m/uL Hgb (11.4-16.0) gm/dL Hct (34.0-46.0) % RDW (11.5-15.5) % Plt Count (150-450) k/uL Chloride (98-107) mmol/L Carbon Dioxide (22-30) mmol/L Creatinine (0.52-1.04) mg/dL Glucose (74-99) mg/dL POC Glucose (mg/dL) 139 H (70-110) mg/dL Calcium (8.4-10.2) mg/dL Magnesium (1.6-2.3) mg/dL AST (14-36) U/L Alkaline Phosphatase (38-126) U/L Total Protein (6.3-8.2) g/dL Albumin (3.5-5.0) g/dL Crossmatch Assessment and Plan Assessment: This is a 53-year-old woman with stage IV endometrial cancer who is having bilateral frontal headache, intractable nausea vomiting with reported slurred speech. To the head shows isodense area in the proximal right temporal of uncertain etiology. Intractable nausea vomiting with headache, transient dysarthria and CT head shows isodense over the proximal right temporal: Rule out brain mets. On repeat CT head there is no brain mass but reported ?suspicion for small right frontal subarachnoid hemorrhage. I reviewed CT and do not appreciated the hemorrhage. Stage IV endometrial cancer (mets to liver and bone) and patient received radiation therapy chemotherapy and she continues to be on oral chemotherapy Mild transminitis due to mets to liver Tobacco use Plan: MRI of the brain with and without is ordered is pending. I will get a repeat CT of the head and CTA head and neck. She is currently not on antiplatelets or anticoagulation. Oncology is consulted Patient is on Reglan, Compazine. Pain she is on Dilaudid as needed. She was counseled on tobacco cessation. Will defer the rest of the medical management to primary team and other specialists Condition is very guarded. The plan discussed with her who is at bedside and her nurse. Time with Patient: Less than 30
--- NOTE | 2023-09-01 12:51 | P.PN ---
Subjective Progress Note Date: 09/01/23 Patient is a 53-year-old female with a known history of hypertension, hyperlipidemia, GERD, diabetes type 2 insulin-dependent, stage IV endometrial cancer diagnosed in 2009 with recurrence in 2014 currently in remission, history of PE, hypothyroidism, anxiety/depression and other medical problems presents to ER for nausea vomiting and headache. Patient has been following up outpatient hematology oncology and currently is on treatment for endometrial carcinoma. Patient was recently admitted a month ago for anemia and thrombocytopenia secondary to chemotherapy. Patient was not feeling well for the last few days. Denies any fever or chills. There is no complaint of chest pain or shortness of breath. Denies any abdominal pain. Patient is complaining of headache. Did complain of slurred speech. Denies any weakness of any extremity. Because of the symptoms, patient went to the ER Initial lab work done in the ER showed WBC 6, hemoglobin 8.4, platelet count 24 PT 11.2, INR 1, sodium 1 3, potassium 4.6, chloride 109, pulmonary rate 18, anion gap 11, creatinine 0.41, glucose 155, calcium 8.5, AST 167, ALT 39, alk phos 414, troponin 0.012 EKG done in the ER showed heart rate of 125, no ST segment elevation or depression seen, no T-wave inversions seen. Chest x-ray done in the ER showed no acute cardiopulmonary process CT head done showed isodense mass in the proximal right temporal lobe, artifact is favored although mass is in the differential. Patient admitted to internal medicine service 08/31. Patient seen and examined. Repeat CT head done showed suspicion for small volume subarachnoid hemorrhage over the right frontal region, no CT evidence of enhancing intracranial metastasis. Blood work this morning showed WBC 10.8, hemoglobin 8.4, platelet count 20, sodium 138, potassium 3.6, BUN 7, creatinine 0.32. Complaining of dizziness, still has nausea but no vomiting REVIEW OF SYSTEMS: CONSTITUTIONAL: No fever, no malaise,. CARDIOVASCULAR: No chest pain, no palpitations, no syncope. PULMONARY: No shortness of breath, no cough, GASTROINTESTINAL: No diarrhea, no abdominal pain. NEUROLOGICAL: No headaches, no weakness, PHYSICAL EXAMINATION: GENERAL: The patient is alert and oriented x3, not in any acute distress. Well developed, well nourished. HEENT: Pupils are round and equally reacting to light. EOMI. No scleral icterus. No conjunctival pallor. Normocephalic, atraumatic. No pharyngeal erythema. No thyromegaly. CARDIOVASCULAR: S1 and S2 present. No murmurs, rubs, or gallops. PULMONARY: Chest is clear to auscultation, no wheezing or crackles. ABDOMEN: Soft, nontender, nondistended, normoactive bowel sounds. No palpable organomegaly. MUSCULOSKELETAL: No joint swelling or deformity. EXTREMITIES: No cyanosis, clubbing, or pedal edema. NEUROLOGICAL: Gross neurological examination did not reveal any focal deficits. SKIN: No rashes. Assessment and plan Nausea and vomiting Headaches Thrombocytopenia Acute transaminitis Anemia due to chemotherapy Symptomatic anemia Stage IV endometrial adenocarcinoma currently on oral chemo, cabozantinib Hypertension Hyperlipidemia Diabetes type 2 insulin-dependent History of PE Hypothyroidism History of ureteral stent placement Anxiety/depression Monitor vital signs Monitor CBC Monitor CMP Continue telemetry monitoring Continue IV fluids Continue antiemetics Continue IV Protonix Results of repeat CT head on 08/30 showed suspicion for small volume subarachnoid hemorrhage over the right frontal region, no CT evidence of enhancing intracranial metastasis, neurology ordered repeat CT head Currently on cabozantinib 40 mg daily for her Endometrial carcinoma in outpatient setting hematology oncology following Neurology follow-up Prognosis guarded Labs and medication were reviewed.. Continue same treatment. Continue with symptomatic treatment. Resume home medication. Monitor labs and vitals. DVT and GI prophylaxis. Further recommendations as per clinical course of the patient Dictation was produced using [employer] dictation software. please excuse any grammatical, word or spelling errors. Objective - Vital Signs Vital signs: Vital Signs Temp 97.8 F 09/01/23 08:25 Pulse 113 H 09/01/23 08:35 Resp 17 09/01/23 08:25 BP 158/84 09/01/23 08:25 Pulse Ox 98 09/01/23 08:25 FiO2 Intake & Output 08/31/23 09/01/23 09/01/23 18:59 06:59 18:59 Intake Total 310 0 Output Total 200 Balance 310 -200 0 Intake: Oral 0 0 Blood Product 310 Rc As-1 Unit 310 [id number] Output: Emesis 200 Other: Voiding Method Toilet Toilet Toilet # Voids 3 1 - Labs CBC & Chem 7: 09/01/23 08:45 09/01/23 08:45 Labs: Abnormal Lab Results - Last 24 Hours (Table) 08/31/23 08/31/23 08/31/23 Range/Units 10:16 11:16 16:17 RBC (3.80-5.40) m/uL Hgb (11.4-16.0) gm/dL Hct (34.0-46.0) % RDW (11.5-15.5) % Plt Count (150-450) k/uL Chloride (98-107) mmol/L Carbon Dioxide (22-30) mmol/L Creatinine (0.52-1.04) mg/dL Glucose (74-99) mg/dL POC Glucose (mg/dL) 147 H 136 H (70-110) mg/dL Calcium (8.4-10.2) mg/dL Magnesium (1.6-2.3) mg/dL AST (14-36) U/L Alkaline Phosphatase (38-126) U/L Total Protein (6.3-8.2) g/dL Albumin (3.5-5.0) g/dL Crossmatch See Detail 08/31/23 09/01/23 09/01/23 Range/Units 20:26 06:08 08:45 RBC 2.81 L (3.80-5.40) m/uL Hgb 8.4 L D (11.4-16.0) gm/dL Hct 27.1 L (34.0-46.0) % RDW 16.8 H (11.5-15.5) % Plt Count 20 L (150-450) k/uL Chloride (98-107) mmol/L Carbon Dioxide (22-30) mmol/L Creatinine (0.52-1.04) mg/dL Glucose (74-99) mg/dL POC Glucose (mg/dL) 138 H 134 H (70-110) mg/dL Calcium (8.4-10.2) mg/dL Magnesium (1.6-2.3) mg/dL AST (14-36) U/L Alkaline Phosphatase (38-126) U/L Total Protein (6.3-8.2) g/dL Albumin (3.5-5.0) g/dL Crossmatch 09/01/23 Range/Units 08:45 RBC (3.80-5.40) m/uL Hgb (11.4-16.0) gm/dL Hct (34.0-46.0) % RDW (11.5-15.5) % Plt Count (150-450) k/uL Chloride 113 H (98-107) mmol/L Carbon Dioxide 10 L (22-30) mmol/L Creatinine 0.32 L (0.52-1.04) mg/dL Glucose 138 H (74-99) mg/dL POC Glucose (mg/dL) (70-110) mg/dL Calcium 8.1 L (8.4-10.2) mg/dL Magnesium 1.2 L (1.6-2.3) mg/dL AST 148 H (14-36) U/L Alkaline Phosphatase 307 H (38-126) U/L Total Protein 5.6 L (6.3-8.2) g/dL Albumin 3.0 L (3.5-5.0) g/dL Crossmatch
[2023-09-01] MEDS ORDERED: Magnesium Replacement Protocol 1 EACH MISC MISCELLANE PRN (13:35)
[2023-09-01] MEDS: MAGNESIUM SULFATE-D5W PMX 1 GM in DEXTROSE/WATER 1 100ML.BAG IVPB SCH (13:45)
--- NOTE | 2023-09-01 14:39 | XR ---
EXAM: XR chest 1V portable CLINICAL INDICATION:Female, 53 years old with history of sob; [facility] COMPARISON: 08/30/2023 TECHNIQUE: Chest single view. FINDINGS: Lines/tubes/devices: EKG leads over the chest. No indwelling lines. Cardiomediastinum: Cardiac silhouette appears upper normal in size. Unremarkable mediastinal silhouette. Vasculature: No increased pulmonary vasculature. Lungs/pleura: Lung volumes are diminished, with crowding of lung markings and minor bibasilar opacities likely on t he basis of atelectasis. Otherwise no definite confluent consolidative process, sizable effusion, or pneumothorax demonstrated. Bones/soft tissues: Bony thorax appears grossly intact as seen. Regional soft tissues appear unremarkable. IMPRESSION: Low lung volume exam with hypoventilatory changes. Otherwise no acute finding.
--- NOTE | 2023-09-01 15:29 | CT ---
EXAMINATION TYPE: CT brain wo con CT DLP: 1066.6 mGycm, Automated exposure control for dose reduction was used. DATE OF EXAM: 09/01/2023 2:52 PM COMPARISON: CT brain without/with contrast 08/31/2023 1:47 PM, and CT brain without contrast 08/30/2023 10:41 PM. CLINICAL INDICATION:Female, 53 years old with history of ?subarachnoid hemorrhage on ct, ?subarachnoi d hemorrhage on ct TECHNIQUE: Brain: Axial CT images of the brain were obtained with coronal and sagittal reformats created and rev iewed. Contrast used: None. Oral contrast used: None. FINDINGS: The appearance of the brain has not changed significantly since the last study. There is a similar ap pearance of vague asymmetric curvilinear increased attenuation over the right frontal lobe, concernin g for small volume subarachnoid hemorrhage. There is no new parenchymal or extra-axial hemorrhage, mi dline shift, or mass effect demonstrated. The basilar cisterns appear patent. Ventricles are stable i n size and configuration. Orbits, extracranial soft tissues, osseous structures appear unchanged. Small amount of fluid in a fe w left mastoid air cells again seen. No calvarial fracture identified. MRI is more sensitive for detecting acute processes such as infarct, and may be considered if clinica lly warranted. IMPRESSION: Stable CT appearance of the brain, with findings again suspicious for small volume subarachnoid hemor rhage over the right frontal region.
[2023-09-01] MEDS: IPRATROPIUM-ALBUTEROL 3 ML NEB INHALATION PRN (15:34)
[2023-09-01 16:26] LABS: Glucose,Whole Blood 180 mg/dL (70-110)
[2023-09-01] MEDS: HYDROmorphone 0.5 MG/0.5 ML SYRINGE IVP PRN (17:54)
--- NOTE | 2023-09-01 18:31 | CT ---
EXAMINATION TYPE: CT angio head neck DATE OF EXAM: 09/01/2023 2:53 PM COMPARISON: Correlation with same day CT head and earlier studies. CLINICAL INDICATION:Female, 53 years old with history of ?subarachnoid hemorrhage on ct; [facility], ?subara chnoid hemorrhage on ct TECHNIQUE: Axially acquired helical CT angiogram of the head and neck was obtained with contrast. Axi al images are supplemented with 3D reconstructions [facility] NASCET criteria used. Contrast used: 65 mL of Isovue 370 with IV Contrast, Oral contrast used: None. CT DLP: 422.7 mGycm, Automated exposure control for dose reduction was used. FINDINGS: CTA Neck: There is a 4 vessel branch pattern. Brachiocephalic artery, left common carotid artery, left vertebra l artery, left subclavian artery. Minimal atherosclerotic calcification of the proximal brachiocepha lic artery. Interestingly the left vertebral artery is fenestrated proximally and then rejoins crania lly after the posterior division enters the transverse foramina. Right carotid system: The common carotid is patent. Mild atherosclerotic calcification at the carotid bifurcation and proximal ICA without significant stenosis. ICA is patent to the skull base. Left carotid system: The common carotid is patent. Mild atherosclerotic calcification at the carotid bifurcation and proximal ICA without significant stenosis. ICA is patent to the skull base. Vertebral arteries: There is no significant atherosclerotic plaque at the origins of the vertebral ar teries. The vertebrals are patent to the skull base. The vertebral arteries are codominant. Other: Visualized neck soft tissues show no acute abnormality. Cervical spine shows mild degenerative changes. There is a heterogeneous attenuation pattern throughout the visualized osseous structures w hich can be seen with mixed lytic/blastic osseous metastatic disease. Correlate with history. Imaged portions of the lung apices are clear. Visualized heart appears upper limits of normal in size with s mall pericardial effusion suggested. Mild coronary calcifications. The pulmonary trunk is borderline enlarged at 3 cm, this can be seen with pulmonary arterial hypertension. Partially seen multiple bila teral enlarged axillary lymph nodes, for example 2.3 x 2 cm on the right and 1.4 by at least 1.9 cm o n the left. Grossly unremarkable thyroid. CTA Head: There are some calcifications of the cavernous portions of the ICAs without significant stenosis. Carotid termini appear patent with patent bilateral MCAs and ACAs bilaterally. Anterior communicating artery is not clearly visualized, there is no sizable aneurysm seen in this area in the limits of CT A. Sizable posterior communicating arteries are not identified. The intracranial vertebral arteries enhance normally. Basilar artery is patent and unremarkable. Norm al basilar bifurcation without evidence of aneurysm. Visualized proximal appliance technician are patent. No intracranial large vessel occlusion, hemodynamically significant stenosis, aneurysm, dissection, o r arteriovenous malformation is shown. No enhancing mass suggested. The dural venous sinuses appear grossly patent without evidence of thrombosis. Other: Please refer to same-day CT head report for further description of findings. IMPRESSION: CTA neck: 1. No dissection or pseudoaneurysm detected in the carotid or vertebral arteries in the neck. 2. Mild atherosclerotic disease is present at the carotid bifurcations/proximal ICAs, without hemodyn amically significant stenosis. 3. Heterogeneous attenuation pattern throughout the visualized osseous structures which can be seen w ith mixed lytic/blastic osseous metastatic disease. Correlate with history. 4, Visualized heart appears upper limits of normal in size with small pericardial effusion suggested. 5. Borderline enlarged pulmonary trunk, can be seen with pulmonary arterial hypertension. 6. Partiall y seen multiple bilateral enlarged axillary lymph nodes, concerning for metastatic involvement. CTA head: 1. No intracranial large vessel occlusion, significant stenosis, or sizable aneurysm detected in the limits of CTA. 2. Recommend follow-up as clinically indicated.
[2023-09-01 20:14] LABS: Glucose,Whole Blood 181 mg/dL (70-110)
[2023-09-02 06:17] LABS: Glucose,Whole Blood 173 mg/dL (70-110)
[2023-09-02 09:57] LABS: ALT 26 U/L (4-34); AST 351 U/L (14-36); African American GFR (CKD) >90 (>60 ml/min/1.73 sqM); Albumin 3.3 g/dL (3.5-5.0); Alkaline Phosphatase 320 U/L (38-126); Anion Gap 15 mmol/L; Blood Urea Nitrogen 5 mg/dL (7-17); Calcium 8.5 mg/dL (8.4-10.2); Carbon Dioxide 12 mmol/L (22-30); Chloride 109 mmol/L (98-107); Glucose 151 mg/dL (74-99); Magnesium 1.6 mg/dL (1.6-2.3); Non-African American GFR(CKD) >90 (>60 ml/min/1.73 sqM); Potassium 3.6 mmol/L (3.5-5.1); Sodium 136 mmol/L (137-145); Total Bilirubin 0.8 mg/dL (0.2-1.3); Total Protein 6.1 g/dL (6.3-8.2)
[2023-09-02 10:18] LABS: Anisocytosis Slight; Basophils # (A) 0.1 k/uL (0-0.2); Basophils % (A) 1 %; Eosinophils # (A) 0.1 k/uL (0-0.7); Eosinophils % (A) 2 %; HCT 28.3 % (34.0-46.0); HGB 9.5 gm/dL (11.4-16.0); Lymphocytes % (A) 26 %; MCH 29.6 pg (25.0-35.0); MCHC 33.4 g/dL (31.0-37.0); Mean Platelet Volume 7.2; Monocytes # (A) 0.6 k/uL (0-1.0); Monocytes % (A) 7 %; Neutrophils # (A) 4.7 k/uL (1.3-7.7); Neutrophils % (A) 61 %; Poikilocytosis Slight; RDW 17.1 % (11.5-15.5); WBC 7.7 k/uL (3.8-10.6)
[2023-09-02 10:21] LABS: MCV 88.4 fL (80.0-100.0)
[2023-09-02 10:22] LABS: Platelet Count 16 k/uL (150-450)
[2023-09-02 11:20] LABS: Glucose,Whole Blood 154 mg/dL (70-110)
[2023-09-02] MEDS: HYDROmorphone 0.5 MG/0.5 ML SYRINGE IVP PRN (11:22)
[2023-09-02] MEDS: MECLIZINE 25 MG TAB PO PRN (11:23)
--- NOTE | 2023-09-02 13:59 | P.PN ---
Subjective Patient is a 53-year-old female with a known history of hypertension, hyperlipidemia, GERD, diabetes type 2 insulin-dependent, stage IV endometrial cancer diagnosed in 2009 with recurrence in 2014 currently in remission, history of PE, hypothyroidism, anxiety/depression and other medical problems presents to ER for nausea vomiting and headache. Patient has been following up outpatient hematology oncology and currently is on treatment for endometrial carcinoma. Patient was recently admitted a month ago for anemia and thrombocytopenia secondary to chemotherapy. Patient was not feeling well for the last few days. Denies any fever or chills. There is no complaint of chest pain or shortness of breath. Denies any abdominal pain. Patient is complaining of headache. Did complain of slurred speech. Denies any weakness of any extremity. Because of the symptoms, patient went to the ER Initial lab work done in the ER showed WBC 6, hemoglobin 8.4, platelet count 24 PT 11.2, INR 1, sodium 1 3, potassium 4.6, chloride 109, pulmonary rate 18, anion gap 11, creatinine 0.41, glucose 155, calcium 8.5, AST 167, ALT 39, alk phos 414, troponin 0.012 EKG done in the ER showed heart rate of 125, no ST segment elevation or depression seen, no T-wave inversions seen. Chest x-ray done in the ER showed no acute cardiopulmonary process CT head done showed isodense mass in the proximal right temporal lobe, artifact is favored although mass is in the differential. Patient admitted to internal medicine service 08/31. Patient seen and examined. Repeat CT head done showed suspicion for small volume subarachnoid hemorrhage over the right frontal region, no CT evidence of enhancing intracranial metastasis. Blood work this morning showed WBC 10.8, hemoglobin 8.4, platelet count 20, sodium 138, potassium 3.6, BUN 7, creatinine 0.32. Complaining of dizziness, still has nausea but no vomiting 09/01. Patient seen and examined. Blood work done this morning showed WBC 7.7, hemoglobin 8.5, platelet count 16, sodium 130, potassium 3.6, BUN 5, creatinine 0.28.CT brain done on 08/31 showed stable appearance of the brain with findings again suspicious for small volume subarachnoid hemorrhage over the right frontal region. CT neck showed no dissection or pseudoaneurysm in the carotid or vertebral arteries. Nausea slightly improved. Hematology oncology recommends transfusing 5 unit of platelets REVIEW OF SYSTEMS: CONSTITUTIONAL: No fever, no malaise,. CARDIOVASCULAR: No chest pain, no palpitations, no syncope. PULMONARY: No shortness of breath, no cough, GASTROINTESTINAL: No diarrhea, no abdominal pain. NEUROLOGICAL: No headaches, no weakness, PHYSICAL EXAMINATION: GENERAL: The patient is alert and oriented x3, chronically ill looking HEENT: Pupils are round and equally reacting to light. EOMI. No scleral icterus. No conjunctival pallor. Normocephalic, atraumatic. No pharyngeal erythema. No thyromegaly. CARDIOVASCULAR: S1 and S2 present. No murmurs, rubs, or gallops. PULMONARY: Chest is clear to auscultation, no wheezing or crackles. ABDOMEN: Soft, nontender, nondistended, normoactive bowel sounds. No palpable organomegaly. MUSCULOSKELETAL: No joint swelling or deformity. EXTREMITIES: No cyanosis, clubbing, or pedal edema. NEUROLOGICAL: Gross neurological examination did not reveal any focal deficits. SKIN: No rashes. Assessment and plan Nausea and vomiting Headaches Thrombocytopenia Acute transaminitis Anemia due to chemotherapy Symptomatic anemia Stage IV endometrial adenocarcinoma currently on oral chemo, cabozantinib Hypertension Hyperlipidemia Diabetes type 2 insulin-dependent History of PE Hypothyroidism History of ureteral stent placement Anxiety/depression Monitor vital signs Monitor CBC Monitor CMP Continue telemetry monitoring Continue IV fluids Continue antiemetics Continue IV Protonix CT brain done on 08/31 showed stable appearance of the brain with findings again suspicious for small volume subarachnoid hemorrhage over the right frontal regio n. CT neck showed no dissection or pseudoaneurysm in the carotid or vertebral arteries. Currently on cabozantinib 40 mg daily for her Endometrial carcinoma in outpatient setting hematology oncology following, ordered 5 unit of platelets Neurology following Prognosis guarded Labs and medication were reviewed.. Continue same treatment. Continue with symptomatic treatment. Resume home medication. Monitor labs and vitals. DVT and GI prophylaxis. Further recommendations as per clinical course of the patient Dictation was produced using [employer] dictation software. please excuse any grammatical, word or spelling errors. Objective - Vital Signs Vital signs: Vital Signs Temp 98.0 F 09/02/23 09:13 Pulse 118 H 09/02/23 11:17 Resp 18 09/02/23 11:17 BP 170/87 09/02/23 11:17 Pulse Ox 97 09/02/23 11:17 FiO2 Intake & Output 09/01/23 09/02/23 09/02/23 18:59 06:59 18:59 Intake Total 0 0 0 Output Total 1600 Balance 0 -1600 0 Intake: Oral 0 0 0 Output: Urine 1600 Uretheral ([place]) 750 Other: Voiding Method Toilet Toilet Indwelling Catheter # Voids 3 0 - Labs CBC & Chem 7: 09/02/23 09:19 09/02/23 09:19 Labs: Abnormal Lab Results - Last 24 Hours (Table) 09/01/23 09/01/23 09/01/23 Range/Units 08:45 16:12 20:11 RBC (3.80-5.40) m/uL Hgb (11.4-16.0) gm/dL Hct (34.0-46.0) % RDW (11.5-15.5) % Plt Count (150-450) k/uL Sodium (137-145) mmol/L Chloride (98-107) mmol/L Carbon Dioxide (22-30) mmol/L BUN (7-17) mg/dL Creatinine (0.52-1.04) mg/dL Glucose (74-99) mg/dL POC Glucose (mg/dL) 180 H 181 H (70-110) mg/dL Hemoglobin A1c 6.2 H (<=6.0) % AST (14-36) U/L Alkaline Phosphatase (38-126) U/L Total Protein (6.3-8.2) g/dL Albumin (3.5-5.0) g/dL 09/02/23 09/02/23 09/02/23 Range/Units 06:15 09:19 09:19 RBC 3.20 L (3.80-5.40) m/uL Hgb 9.5 L (11.4-16.0) gm/dL Hct 28.3 L (34.0-46.0) % RDW 17.1 H (11.5-15.5) % Plt Count 16 L* (150-450) k/uL Sodium 136 L (137-145) mmol/L Chloride 109 H (98-107) mmol/L Carbon Dioxide 12 L (22-30) mmol/L BUN 5 L (7-17) mg/dL Creatinine 0.28 L (0.52-1.04) mg/dL Glucose 151 H (74-99) mg/dL POC Glucose (mg/dL) 173 H (70-110) mg/dL Hemoglobin A1c (<=6.0) % AST 351 H (14-36) U/L Alkaline Phosphatase 320 H (38-126) U/L Total Protein 6.1 L (6.3-8.2) g/dL Albumin 3.3 L (3.5-5.0) g/dL 09/02/23 Range/Units 11:19 RBC (3.80-5.40) m/uL Hgb (11.4-16.0) gm/dL Hct (34.0-46.0) % RDW (11.5-15.5) % Plt Count (150-450) k/uL Sodium (137-145) mmol/L Chloride (98-107) mmol/L Carbon Dioxide (22-30) mmol/L BUN (7-17) mg/dL Creatinine (0.52-1.04) mg/dL Glucose (74-99) mg/dL POC Glucose (mg/dL) 154 H (70-110) mg/dL Hemoglobin A1c (<=6.0) % AST (14-36) U/L Alkaline Phosphatase (38-126) U/L Total Protein (6.3-8.2) g/dL Albumin (3.5-5.0) g/dL
--- NOTE | 2023-09-02 14:10 | P.PN ---
Subjective Progress Note Date: 09/02/23 I am following-up with patient and she feels no further vomiting and dizziness is improving. Headache is subtle better. Otherwise continues to have nausea. Objective - Vital Signs Vital signs: Vital Signs Temp 98.0 F 09/02/23 09:13 Pulse 118 H 09/02/23 11:17 Resp 18 09/02/23 11:17 BP 170/87 09/02/23 11:17 Pulse Ox 97 09/02/23 11:17 FiO2 Intake & Output 09/01/23 09/02/23 09/02/23 18:59 06:59 18:59 Intake Total 0 0 0 Output Total 1600 Balance 0 -1600 0 Intake: Oral 0 0 0 Output: Urine 1600 Uretheral ([place]) 750 Other: Voiding Method Toilet Toilet Indwelling Catheter # Voids 3 0 - Exam General: Lying in bed and does not appear in acute distres Neuro: Patient appear lethargic. Is oriented to self, place and time. Is following simple commands. No aphasia. Visual martell full to confrontation. No facial weakness. Motor: Lifting uppers above gravity. Some of the workup during this hospital visit consisted of: Her hemoglobin has dropped to 6.6-->8.4 AST of 167 ALT is 39. I reviewed the rest of the lab workup CT of the head is reported as there is an isodense area in the proximal right temporal lobe uncertain etiology. Artifact is favored although a mass within the differential. Additional evaluation with MRI with contrast is recommended. Remaining portion of the brain appears unremarkable. I personally reviewed the CT and I see what radiologist reported an uncertain exact etiology Repeat CT head and showed ?suspicion for small subarachnoid hemorrhage over the right frontal region. No CT evidence of enhancing intrcranial metastatsis. I reviewed CT head and not convinced with subarachnoid. Repeat CT head on 09/01/23: Stable Ct appearanace of the brain with finding again suspicious for small volume subarachnoid hemorrhage over the right frontal region. CTA head and neck: No dissectio or pseudoaneurysm. Heterogenous attenuation pattern throughout the visualized osseous structure which can be seen with mixed lytic/blastic osseous metastatic disease. - Labs CBC & Chem 7: 09/02/23 09:19 09/02/23 09:19 Labs: Abnormal Lab Results - Last 24 Hours (Table) 09/01/23 09/01/23 09/01/23 Range/Units 08:45 16:12 20:11 RBC (3.80-5.40) m/uL Hgb (11.4-16.0) gm/dL Hct (34.0-46.0) % RDW (11.5-15.5) % Plt Count (150-450) k/uL Sodium (137-145) mmol/L Chloride (98-107) mmol/L Carbon Dioxide (22-30) mmol/L BUN (7-17) mg/dL Creatinine (0.52-1.04) mg/dL Glucose (74-99) mg/dL POC Glucose (mg/dL) 180 H 181 H (70-110) mg/dL Hemoglobin A1c 6.2 H (<=6.0) % AST (14-36) U/L Alkaline Phosphatase (38-126) U/L Total Protein (6.3-8.2) g/dL Albumin (3.5-5.0) g/dL 09/02/23 09/02/23 09/02/23 Range/Units 06:15 09:19 09:19 RBC 3.20 L (3.80-5.40) m/uL Hgb 9.5 L (11.4-16.0) gm/dL Hct 28.3 L (34.0-46.0) % RDW 17.1 H (11.5-15.5) % Plt Count 16 L* (150-450) k/uL Sodium 136 L (137-145) mmol/L Chloride 109 H (98-107) mmol/L Carbon Dioxide 12 L (22-30) mmol/L BUN 5 L (7-17) mg/dL Creatinine 0.28 L (0.52-1.04) mg/dL Glucose 151 H (74-99) mg/dL POC Glucose (mg/dL) 173 H (70-110) mg/dL Hemoglobin A1c (<=6.0) % AST 351 H (14-36) U/L Alkaline Phosphatase 320 H (38-126) U/L Total Protein 6.1 L (6.3-8.2) g/dL Albumin 3.3 L (3.5-5.0) g/dL 09/02/23 Range/Units 11:19 RBC (3.80-5.40) m/uL Hgb (11.4-16.0) gm/dL Hct (34.0-46.0) % RDW (11.5-15.5) % Plt Count (150-450) k/uL Sodium (137-145) mmol/L Chloride (98-107) mmol/L Carbon Dioxide (22-30) mmol/L BUN (7-17) mg/dL Creatinine (0.52-1.04) mg/dL Glucose (74-99) mg/dL POC Glucose (mg/dL) 154 H (70-110) mg/dL Hemoglobin A1c (<=6.0) % AST (14-36) U/L Alkaline Phosphatase (38-126) U/L Total Protein (6.3-8.2) g/dL Albumin (3.5-5.0) g/dL Assessment and Plan Assessment: This is a 53-year-old woman with stage IV endometrial cancer who is having bilateral frontal headache, intractable nausea vomiting with reported slurred speech. To the head shows isodense area in the proximal right temporal of unc ertain etiology. Intractable nausea vomiting with headache, transient dysarthria and CT head shows isodense over the proximal right temporal: Rule out brain mets. On repeat CT head there is no brain mass but reported ?suspicion for small right frontal subarachnoid hemorrhage. No aneurysm noted. 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 She is currently not on antiplatelets or anticoagulation and recommend to avoid. Since has small right frontal subarachnoid hemorrhage, no transfer needed for n eurosurgical since it is small. Also no chemical intervention since stable and is not on anticoagulation or antiplatelets. For significant thrombocytopenia will defer management to primary and Oncology team. Oncology is consulted Patient is on Reglan, Compazine. Pain she is on Dilaudid as needed. She was counseled on tobacco cessation. Will defer the rest of the medical management to primary team and other specialists Condition is very guarded. The plan discussed with her daughter who is at bedside and her nurse. As well discussed with primary team. Dr. Werner will start neurology service tomorrow A.M. Time with Patient: Less than 30
[2023-09-02] MEDS: hydrALAZINE HCL 20 MG/ML 1 ML VIAL IVP PRN (14:44)
[2023-09-02 16:19] LABS: Glucose,Whole Blood 163 mg/dL (70-110)
[2023-09-02 20:21] LABS: Glucose,Whole Blood 168 mg/dL (70-110)
[2023-09-03 06:37] LABS: Glucose,Whole Blood 193 mg/dL (70-110)
[2023-09-03] MEDS: METOPROLOL TARTRATE 5 MG/5 ML VIAL IVP PRN (08:21)
[2023-09-03 08:27] LABS: Anisocytosis Slight; HCT 27.4 % (34.0-46.0); HGB 9.2 gm/dL (11.4-16.0); MCH 29.7 pg (25.0-35.0); MCHC 33.7 g/dL (31.0-37.0); MCV 88.3 fL (80.0-100.0); Poikilocytosis Slight; RDW 17.2 % (11.5-15.5); WBC 7.8 k/uL (3.8-10.6)
[2023-09-03 08:50] LABS: Platelet Count 41 k/uL (150-450)
--- NOTE | 2023-09-03 09:14 | P.GSCN ---
History of Present Illness Consult date: 09/03/23 Reason for Consult: Urinary retention Requesting physician: Prem Velasquez History of present illness: The patient is a 53-year-old white female with metastatic endometrial carcinoma. She has previously received multiple lines of therapy. She is currently admitted for evaluation of slurred speech. CT scan of the head is suspicious for small volume subarachnoid hemorrhage over the right frontal region, without evidence of metastasis. She has recently experienced difficulty voiding. Specifically, she felt the urge to void just a few minutes after she had voided. She was found to empty her bladder incompletely and a Moffett catheter was placed. The history was obtained from the patient's family. They have indicat ed that Hospice is being considered. CT scan in March 2022 showed evidence of mild right hydronephrosis. She had a right ureteral stent placed at [facility], which has since been removed. PET/CT scan done on July 04, 2023 shows no evidence of hydronephrosis. Review of Systems - Genitourinary Genitourinary: Reports as per HPI 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 THYROID NODULES. SHOULDER PROB, RT WORSE. RT RING TRIGGER FINGER. Uterine Cancer. Ureter Stent History of Any Multi-Drug Resistant Organisms: None Reported Past Surgical History: Section, Hernia Repair, Hysterectomy, Tonsillectomy Additional Past Surgical History / Comment(s): Nixon Trigger thumb surgery. Radical hysterectomy, rt ring finger,rt middle finger,lt pointer finger 03/25 Past Anesthesia/Blood Transfusion Reactions: No Reported Reaction, Family History of Problems w/ Anesthesia, Motion Sickness Additional Past Anesthesia/Blood Transfusion Reaction / Comm: SIBLINGS HAVE PONV. pt claustrophobic. Past Psychological History: Anxiety, Depression Smoking Status: Former smoker - Past Family History Mother Family Medical History: Diabetes Mellitus Additional Family Medical History / Comment(s): heart valve replaced Father Family Medical History: Cancer Additional Family Medical History / Comment(s): prostate cancer Medications and Allergies Home Medications Medication Instructions Recorded Confirmed Type Insulin Aspart [NovoLOG Flexpen] 10 units SQ AC-TID PRN 06/02/19 08/31/23 History Insulin Glargine,Hum.rec.anlog 27 units SQ HS 03/28/22 08/31/23 History [Lantus Solostar Pen] Omeprazole [PriLOSEC] 40 mg PO BID 03/28/22 08/31/23 History Pioglitazone [Actos] 15 mg PO DAILY 03/28/22 08/31/23 History lisinopriL [Prinivil] 20 mg PO DAILY 03/28/22 08/31/23 History Biotin [Sqfs-Akux-Dcjhl] 10,000 mcg PO DAILY 07/30/23 08/31/23 History Metoclopramide [Reglan] 10 mg PO Q6H PRN 07/30/23 08/31/23 History Ondansetron Odt [Zofran ODT] 4 mg PO Q6H PRN 07/30/23 08/31/23 History Sucralfate [Carafate] 1 gm PO Q6H PRN 07/30/23 08/31/23 History amLODIPine [Norvasc] 2.5 mg PO HS 07/30/23 08/31/23 History Loperamide [Imodium] 2 mg PO Q4H PRN 08/31/23 08/31/23 History Allergies Allergy/AdvReac Type Severity Reaction Status Date / Time diatrizoate meglumine Allergy Diarrhea Verified 08/31/23 12:00 (FROM GASTROGRAPHIN) morphine Allergy Nausea & Verified 08/31/23 12:00 Vomiting prochlorperazine AdvReac Nausea & Verified 08/31/23 12:00 [From Compazine] Vomiting Surgical - Exam Vital Signs Temp Pulse Resp BP Pulse Ox 98.8 F 131 H 18 139/87 96 08/30/23 17:27 08/30/23 17:27 08/30/23 17:27 08/30/23 17:27 08/30/23 17:27 - General well developed, well nourished, no distress Results - Labs 09/03/23 07:56 09/02/23 09:19 Abnormal Lab Results - Last 24 Hours (Table) 09/01/23 09/01/23 09/01/23 Range/Units 08:45 16:12 20:11 RBC (3.80-5.40) m/uL Hgb (11.4-16.0) gm/dL Hct (34.0-46.0) % RDW (11.5-15.5) % Plt Count (150-450) k/uL Sodium (137-145) mmol/L Chloride (98-107) mmol/L Carbon Dioxide (22-30) mmol/L BUN (7-17) mg/dL Creatinine (0.52-1.04) mg/dL Glucose (74-99) mg/dL POC Glucose (mg/dL) 180 H 181 H (70-110) mg/dL Hemoglobin A1c 6.2 H (<=6.0) % AST (14-36) U/L Alkaline Phosphatase (38-126) U/L Total Protein (6.3-8.2) g/dL Albumin (3.5-5.0) g/dL 09/02/23 09/02/23 09/02/23 Range/Units 06:15 09:19 09:19 RBC 3.20 L (3.80-5.40) m/uL Hgb 9.5 L (11.4-16.0) gm/dL Hct 28.3 L (34.0-46.0) % RDW 17.1 H (11.5-15.5) % Plt Count 16 L* (150-450) k/uL Sodium 136 L (137-145) mmol/L Chloride 109 H (98-107) mmol/L Carbon Dioxide 12 L (22-30) mmol/L BUN 5 L (7-17) mg/dL Creatinine 0.28 L (0.52-1.04) mg/dL Glucose 151 H (74-99) mg/dL POC Glucose (mg/dL) 173 H (70-110) mg/dL Hemoglobin A1c (<=6.0) % AST 351 H (14-36) U/L Alkaline Phosphatase 320 H (38-126) U/L Total Protein 6.1 L (6.3-8.2) g/dL Albumin 3.3 L (3.5-5.0) g/dL 09/02/23 Range/Units 11:19 RBC (3.80-5.40) m/uL Hgb (11.4-16.0) gm/dL Hct (34.0-46.0) % RDW (11.5-15.5) % Plt Count (150-450) k/uL Sodium (137-145) mmol/L Chloride (98-107) mmol/L Carbon Dioxide (22-30) mmol/L BUN (7-17) mg/dL Creatinine (0.52-1.04) mg/dL Glucose (74-99) mg/dL POC Glucose (mg/dL) 154 H (70-110) mg/dL Hemoglobin A1c (<=6.0) % AST (14-36) U/L Alkaline Phosphatase (38-126) U/L Total Protein (6.3-8.2) g/dL Albumin (3.5-5.0) g/dL Diabetes panel 09/01/23 09/02/23 Range/Units 08:45 09:19 Sodium 136 L (137-145) mmol/L Potassium 3.6 (3.5-5.1) mmol/L Chloride 109 H (98-107) mmol/L Carbon Dioxide 12 L (22-30) mmol/L BUN 5 L (7-17) mg/dL Creatinine 0.28 L (0.52-1.04) mg/dL Glucose 151 H (74-99) mg/dL Hemoglobin A1c 6.2 H (<=6.0) % Calcium 8.5 (8.4-10.2) mg/dL AST 351 H (14-36) U/L ALT 26 (4-34) U/L Alkaline Phosphatase 320 H (38-126) U/L Total Protein 6.1 L (6.3-8.2) g/dL Albumin 3.3 L (3.5-5.0) g/dL Calcium panel 09/02/23 Range/Units 09:19 Calcium 8.5 (8.4-10.2) mg/dL Albumin 3.3 L (3.5-5.0) g/dL Pituitary panel 09/02/23 Range/Units 09:19 Sodium 136 L (137-145) mmol/L Potassium 3.6 (3.5-5.1) mmol/L Chloride 109 H (98-107) mmol/L Carbon Dioxide 12 L (22-30) mmol/L BUN 5 L (7-17) mg/dL Creatinine 0.28 L (0.52-1.04) mg/dL Glucose 151 H (74-99) mg/dL Calcium 8.5 (8.4-10.2) mg/dL Adrenal panel 09/02/23 Range/Units 09:19 Sodium 136 L (137-145) mmol/L Potassium 3.6 (3.5-5.1) mmol/L Chloride 109 H (98-107) mmol/L Carbon Dioxide 12 L (22-30) mmol/L BUN 5 L (7-17) mg/dL Creatinine 0.28 L (0.52-1.04) mg/dL Glucose 151 H (74-99) mg/dL Calcium 8.5 (8.4-10.2) mg/dL Total Bilirubin 0.8 (0.2-1.3) mg/dL AST 351 H (14-36) U/L ALT 26 (4-34) U/L Alkaline Phosphatase 320 H (38-126) U/L Total Protein 6.1 L (6.3-8.2) g/dL Albumin 3.3 L (3.5-5.0) g/dL - Imaging CT scan - abdomen: report reviewed, image reviewed Assessment and Plan (1) Retention of urine, unspecified Current Visit: Yes Status: Acute Code(s): R33.9 - RETENTION OF URINE, UNSPECIFIED SNOMED Code(s): 294793831 Plan: The Moffett catheter is currently in place. I would suggest that the catheter remain in place for at least a couple of days, at the time the catheter could be removed for a voiding trial. However, if the patient chooses to proceed with Hospice, I would suggest that the catheter remain in place if that is her desire.
[2023-09-03 09:28] LABS: ALT 25 U/L (4-34); African American GFR (CKD) >90 (>60 ml/min/1.73 sqM); Albumin 3.2 g/dL (3.5-5.0); Alkaline Phosphatase 299 U/L (38-126); Anion Gap 13 mmol/L; Blood Urea Nitrogen 13 mg/dL (7-17); Calcium 8.7 mg/dL (8.4-10.2); Carbon Dioxide 15 mmol/L (22-30); Chloride 110 mmol/L (98-107); Glucose 184 mg/dL (74-99); Non-African American GFR(CKD) >90 (>60 ml/min/1.73 sqM); Potassium 3.6 mmol/L (3.5-5.1); Sodium 138 mmol/L (137-145); Total Bilirubin 1.2 mg/dL (0.2-1.3); Total Protein 5.8 g/dL (6.3-8.2)
[2023-09-03 10:02] LABS: AST 881 U/L (14-36)
[2023-09-03 11:45] LABS: Glucose,Whole Blood 180 mg/dL (70-110)
[2023-09-03 13:43] VITALS: BMI 29.0
[2023-09-03 16:39] LABS: Glucose,Whole Blood 176 mg/dL (70-110)
--- NOTE | 2023-09-03 19:01 | P.PN ---
Subjective Progress Note Date: 09/03/23 At todays visit, pt is somnolent. Family states pt is sleeping most of the day is not speaking much. MRI has not yet been obtained due to lower extremity stent placed at [facility]. Awaiting records regarding MRI compatibility. Had long discussion with family today regarding prognosis and comfort care measures. Hospice consult has been placed. Family would like MRI brain for further clarification of CT findings. Spoke with primary RN, will try again to obtain records from [facility] so MRI can be obtained Objective - Vital Signs Vital signs: Vital Signs Temp 97.9 F 09/03/23 08:00 Pulse 131 H 09/03/23 08:00 Resp 18 09/03/23 08:00 BP 161/78 09/03/23 08:00 Pulse Ox 95 09/03/23 08:00 FiO2 Intake & Output 09/02/23 09/03/23 09/03/23 18:59 06:59 18:59 Intake Total 970 200 Output Total 500 600 Balance 470 -600 200 Intake: Oral 700 200 Blood Product 270 Platelet Pheresis Pas 270 Psoralen Unit [id number] Output: Urine 500 600 Other: Voiding Method Indwelling Catheter Indwelling Catheter Indwelling Catheter - Constitutional General appearance: Present: no acute distress - Respiratory Details: breathing is even and unlabored - Cardiovascular Details: skin warm and dry - Neurologic Neurologic Comment(s): somnolent - Labs CBC & Chem 7: 09/03/23 07:56 09/03/23 07:56 Labs: Abnormal Lab Results - Last 24 Hours (Table) 09/02/23 09/02/23 09/03/23 Range/Units 16:18 20:20 06:35 RBC (3.80-5.40) m/uL Hgb (11.4-16.0) gm/dL Hct (34.0-46.0) % RDW (11.5-15.5) % Plt Count (150-450) k/uL Chloride (98-107) mmol/L Carbon Dioxide (22-30) mmol/L Creatinine (0.52-1.04) mg/dL Glucose (74-99) mg/dL POC Glucose (mg/dL) 163 H 168 H 193 H (70-110) mg/dL AST (14-36) U/L Alkaline Phosphatase (38-126) U/L Total Protein (6.3-8.2) g/dL Albumin (3.5-5.0) g/dL 09/03/23 09/03/23 Range/Units 07:56 07:56 RBC 3.10 L (3.80-5.40) m/uL Hgb 9.2 L (11.4-16.0) gm/dL Hct 27.4 L (34.0-46.0) % RDW 17.2 H (11.5-15.5) % Plt Count 41 L D (150-450) k/uL Chloride 110 H (98-107) mmol/L Carbon Dioxide 15 L (22-30) mmol/L Creatinine 0.33 L (0.52-1.04) mg/dL Glucose 184 H (74-99) mg/dL POC Glucose (mg/dL) (70-110) mg/dL AST 881 H (14-36) U/L Alkaline Phosphatase 299 H (38-126) U/L Total Protein 5.8 L (6.3-8.2) g/dL Albumin 3.2 L (3.5-5.0) g/dL - Imaging and Cardiology CT Scan - head: report reviewed Assessment and Plan (1) Slurred speech Current Visit: Yes Status: Acute Code(s): R47.81 - SLURRED SPEECH SNOMED Code(s): 708406596 (2) Subarachnoid hemorrhage Current Visit: Yes Status: Acute Code(s): I60.9 - NONTRAUMATIC SUBARACHNOID HEMORRHAGE, UNSPECIFIED SNOMED Code(s): 096982151 (3) Weakness Current Visit: Yes Status: Acute Code(s): R53.1 - WEAKNESS SNOMED Code(s): 02755205 (4) Endometrial adenocarcinoma Current Visit: No Status: Acute Priority: High Code(s): C54.1 - MALIGNANT NEOPLASM OF ENDOMETRIUM SNOMED Code(s): 864080388 Plan: Ms. Urrutia is a very pleasant 53 yo female with history of metastatic uterine cancer, s/p multiple lines of therapy, most recently on cabozantinib, presented for slurred speech. initial CT head w/o reviewed, small lesion of unclear etiology, artifact vs malignant - MRI brain ordered to better characterize change seen on CT. However, due to lower extremity stent and its compatibility, scan has yet to be obtained. - CT scan brain with/without contrast showed suspicion for small volume subarachnoid hemorrhage over the right frontal region. With no CT evidence of enhancing intracranial metastasis and no mass effect or midline shift. - Hold cabozantinib, pt recently stopped this and plan on new therapy once arrangements completed - For her chemo induced bicytopenia, monitor CBC transfuse to maintain Hgb >7 and plt >20. - Monitor for bleeding, currently no signs of acute bleeding. Plts 41,000 today MRI has not yet been obtained due to lower extremity stent placed at [facility]. Awaiting records regarding MRI compatibility. Had discussion with family today regarding prognosis and comfort care measures. Hospice consult has been placed. Family would first like MRI brain for further clarification of CT findings before making decision in regards to hospice. Spoke with primary RN, will reach obtain records from [facility] so MRI can be obtained
[2023-09-03 20:09] LABS: Glucose,Whole Blood 166 mg/dL (70-110)
[2023-09-04 06:00] LABS: Glucose,Whole Blood 175 mg/dL (70-110)
[2023-09-04 10:35] LABS: Anisocytosis Slight; HCT 25.3 % (34.0-46.0); HGB 8.5 gm/dL (11.4-16.0); MCH 29.6 pg (25.0-35.0); MCHC 33.6 g/dL (31.0-37.0); MCV 88.2 fL (80.0-100.0); Mean Platelet Volume 9.1; Poikilocytosis Moderate; RBC 2.87 m/uL (3.80-5.40)
[2023-09-04 11:09] LABS: Platelet Count 23 k/uL (150-450)
[2023-09-04 11:33] LABS: Glucose,Whole Blood 188 mg/dL (70-110)
[2023-09-04 13:13] LABS: Band Neutrophils % 2 %; Eosinophils # (M) 0.11 k/uL (0-0.7); Neutrophils % (M) 49 %; Nucleated Red Blood Cells 1 /100 WBC (0-0); Total Cells Counted 200
[2023-09-04 13:14] LABS: Lymphocytes # (M) 1.79 k/uL (1.0-4.8); Rouleaux Present; WBC 5.6 k/uL (3.8-10.6)
--- NOTE | 2023-09-04 14:34 | P.PN ---
Subjective Progress Note Date: 09/03/23 Patient is a 53-year-old female with a known history of hypertension, hyperlipidemia, GERD, diabetes type 2 insulin-dependent, stage IV endometrial cancer diagnosed in 2009 with recurrence in 2014 currently in remission, history of PE, hypothyroidism, anxiety/depression and other medical problems presents to ER for nausea vomiting and headache. Patient has been following up outpatient hematology oncology and currently is on treatment for endometrial carcinoma. Patient was recently admitted a month ago for anemia and thrombocytopenia secondary to chemotherapy. Patient was not feeling well for the last few days. Denies any fever or chills. There is no complaint of chest pain or shortness of breath. Denies any abdominal pain. Patient is complaining of headache. Did complain of slurred speech. Denies any weakness of any extremity. Because of the symptoms, patient went to the ER Initial lab work done in the ER showed WBC 6, hemoglobin 8.4, platelet count 24 PT 11.2, INR 1, sodium 1 3, potassium 4.6, chloride 109, pulmonary rate 18, anion gap 11, creatinine 0.41, glucose 155, calcium 8.5, AST 167, ALT 39, alk phos 414, troponin 0.012 EKG done in the ER showed heart rate of 125, no ST segment elevation or depression seen, no T-wave inversions seen. Chest x-ray done in the ER showed no acute cardiopulmonary process CT head done showed isodense mass in the proximal right temporal lobe, artifact is favored although mass is in the differential. Patient admitted to internal medicine service 08/31. Patient seen and examined. Repeat CT head done showed suspicion for small volume subarachnoid hemorrhage over the right frontal region, no CT evidence of enhancing intracranial metastasis. Blood work this morning showed WBC 10.8, hemoglobin 8.4, platelet count 20, sodium 138, potassium 3.6, BUN 7, creatinine 0.32. Complaining of dizziness, still has nausea but no vomiting 09/01. Patient seen and examined. Blood work done this morning showed WBC 7.7, hemoglobin 8.5, platelet count 16, sodium 130, potassium 3.6, BUN 5, creatinine 0.28.CT brain done on 08/31 showed stable appearance of the brain with findings again suspicious for small volume subarachnoid hemorrhage over the right frontal region. CT neck showed no dissection or pseudoaneurysm in the carotid or v ertebral arteries. Nausea slightly improved. Hematology oncology recommends transfusing 5 unit of platelets 09/02. Patient seen and examined. Patient is very lethargic. Family at the bedside REVIEW OF SYSTEMS: CONSTITUTIONAL: No fever, no malaise,. CARDIOVASCULAR: No chest pain, no palpitations, no syncope. PULMONARY: No shortness of breath, no cough, GASTROINTESTINAL: No diarrhea, no abdominal pain. NEUROLOGICAL: No headaches, no weakness, PHYSICAL EXAMINATION: GENERAL: The patient is lethargic, chronically ill looking HEENT: Pupils are round and equally reacting to light. EOMI. No scleral icterus. No conjunctival pallor. Normocephalic, atraumatic. No pharyngeal erythema. No thyromegaly. CARDIOVASCULAR: S1 and S2 present. No murmurs, rubs, or gallops. PULMONARY: Chest is clear to auscultation, no wheezing or crackles. ABDOMEN: Soft, nontender, nondistended, normoactive bowel sounds. No palpable organomegaly. MUSCULOSKELETAL: No joint swelling or deformity. EXTREMITIES: No cyanosis, clubbing, or pedal edema. NEUROLOGICAL: Gross neurological examination did not reveal any focal deficits. SKIN: No rashes. Assessment and plan Nausea and vomiting Headaches Thrombocytopenia Acute transaminitis Anemia due to chemotherapy Symptomatic anemia Stage IV endometrial adenocarcinoma currently on oral chemo, cabozantinib Hypertension Hyperlipidemia Diabetes type 2 insulin-dependent History of PE Hypothyroidism History of ureteral stent placement Anxiety/depression Monitor vital signs Monitor CBC Monitor CMP Continue telemetry monitoring Continue IV fluids Continue antiemetics Continue IV Protonix CT brain done on 08/31 showed stable appearance of the brain with findings again suspicious for small volume subarachnoid hemorrhage over the right frontal region. CT neck showed no dissection or pseudoaneurysm in the carotid or vertebral arteries. Currently on cabozantinib 40 mg daily for her Endometrial carcinoma in outpatient setting hematology oncology following, Neurology following Hospice consulted Prognosis guarded Labs and medication were reviewed.. Continue same treatment. Continue with symptomatic treatment. Resume home medication. Monitor labs and vitals. DVT and GI prophylaxis. Further recommendations as per clinical course of the patient Dictation was produced using [employer] dictation software. please excuse any grammatical, word or spelling errors. Objective - Vital Signs Vital signs: Vital Signs Temp 98.5 F 09/04/23 11:23 Pulse 121 H 09/04/23 11:23 Resp 20 05/29/24 11:23 BP 154/93 09/04/23 11:23 Pulse Ox 97 09/04/23 11:23 FiO2 Intake & Output 09/03/23 09/04/23 09/04/23 18:59 06:59 18:59 Intake Total 350 120 100 Output Total 200 Balance 150 120 100 Weight 60.781 kg Intake: Oral 350 120 100 Output: Urine 200 Other: Voiding Method Indwelling Catheter Indwelling Catheter Indwelling Catheter - Labs CBC & Chem 7: 09/04/23 09:47 09/03/23 07:56 Labs: Abnormal Lab Results - Last 24 Hours (Table) 09/03/23 09/03/23 09/04/23 Range/Units 16:38 20:08 05:59 RBC (3.80-5.40) m/uL Hgb (11.4-16.0) gm/dL Hct (34.0-46.0) % RDW (11.5-15.5) % Plt Count (150-450) k/uL Nucleated RBCs (0-0) /100 WBC POC Glucose (mg/dL) 176 H 166 H 175 H (70-110) mg/dL 09/04/23 09/04/23 Range/Units 09:47 11:31 RBC 2.87 L (3.80-5.40) m/uL Hgb 8.5 L (11.4-16.0) gm/dL Hct 25.3 L (34.0-46.0) % RDW 18.0 H (11.5-15.5) % Plt Count 23 L (150-450) k/uL Nucleated RBCs 1 H (0-0) /100 WBC POC Glucose (mg/dL) 188 H (70-110) mg/dL
--- NOTE | 2023-09-04 14:36 | P.PN ---
Subjective Progress Note Date: 09/04/23 Patient is a 53-year-old female with a known history of hypertension, hyperlipidemia, GERD, diabetes type 2 insulin-dependent, stage IV endometrial cancer diagnosed in 2009 with recurrence in 2014 currently in remission, history of PE, hypothyroidism, anxiety/depression and other medical problems presents to ER for nausea vomiting and headache. Patient has been following up outpatient hematology oncology and currently is on treatment for endometrial carcinoma. Patient was recently admitted a month ago for anemia and thrombocytopenia secondary to chemotherapy. Patient was not feeling well for the last few days. Denies any fever or chills. There is no complaint of chest pain or shortness of breath. Denies any abdominal pain. Patient is complaining of headache. Did complain of slurred speech. Denies any weakness of any extremity. Because of the symptoms, patient went to the ER Initial lab work done in the ER showed WBC 6, hemoglobin 8.4, platelet count 24 PT 11.2, INR 1, sodium 1 3, potassium 4.6, chloride 109, pulmonary rate 18, anion gap 11, creatinine 0.41, glucose 155, calcium 8.5, AST 167, ALT 39, alk phos 414, troponin 0.012 EKG done in the ER showed heart rate of 125, no ST segment elevation or depression seen, no T-wave inversions seen. Chest x-ray done in the ER showed no acute cardiopulmonary process CT head done showed isodense mass in the proximal right temporal lobe, artifact is favored although mass is in the differential. Patient admitted to internal medicine service 08/31. Patient seen and examined. Repeat CT head done showed suspicion for small volume subarachnoid hemorrhage over the right frontal region, no CT evidence of enhancing intracranial metastasis. Blood work this morning showed WBC 10.8, hemoglobin 8.4, platelet count 20, sodium 138, potassium 3.6, BUN 7, creatinine 0.32. Complaining of dizziness, still has nausea but no vomiting 09/01. Patient seen and examined. Blood work done this morning showed WBC 7.7, hemoglobin 8.5, platelet count 16, sodium 130, potassium 3.6, BUN 5, creatinine 0.28.CT brain done on 08/31 showed stable appearance of the brain with findings again suspicious for small volume subarachnoid hemorrhage over the right frontal region. CT neck showed no dissection or pseudoaneurysm in the carotid or v ertebral arteries. Nausea slightly improved. Hematology oncology recommends transfusing 5 unit of platelets 09/02. Patient seen and examined. Patient is very lethargic. Family at the bedside 09/03. Patient seen and examined. Blood work done this morning showed WBC 5.6, hemoglobin 8.5, platelet count 23,. Patient slightly more awake compared to yesterday, family states that the patient is trying to eat more compared to yesterday. REVIEW OF SYSTEMS: Cannot be obtained as patient is lethargic PHYSICAL EXAMINATION: GENERAL: The patient is lethargic, chronically ill looking HEENT: Pupils are round and equally reacting to light. EOMI. No scleral icterus. No conjunctival pallor. Normocephalic, atraumatic. No pharyngeal erythema. No thyromegaly. CARDIOVASCULAR: S1 and S2 present. No murmurs, rubs, or gallops. Tachycardia PULMONARY: Chest is clear to auscultation, no wheezing or crackles. ABDOMEN: Soft, nontender, nondistended, normoactive bowel sounds. No palpable organomegaly. MUSCULOSKELETAL: No joint swelling or deformity. EXTREMITIES: No cyanosis, clubbing, or pedal edema. NEUROLOGICAL: Gross neurological examination did not reveal any focal deficits. SKIN: No rashes. Assessment and plan Nausea and vomiting Headaches Thrombocytopenia Acute transaminitis Anemia due to chemotherapy Symptomatic anemia Stage IV endometrial adenocarcinoma currently on oral chemo, cabozantinib Hypertension Hyperlipidemia Diabetes type 2 insulin-dependent History of PE Hypothyroidism History of ureteral stent placement Anxiety/depression Monitor vital signs Monitor CBC Monitor CMP Continue telemetry monitoring Continue IV fluids Continue antiemetics Continue IV Protonix CT brain done on 08/31 showed stable appearance of the brain with findings again suspicious for small volume subarachnoid hemorrhage over the right frontal region. CT neck showed no dissection or pseudoaneurysm in the carotid or vertebral arteries. Currently on cabozantinib 40 mg daily for her Endometrial carcinoma in outpatient setting which will be holding inpatient For her chemo induced bicytopenia, monitor CBC transfuse to maintain Hgb >7 and plt >20. hematology oncology following, Neurology following Hospice consulted Prognosis guarded Labs and medication were reviewed.. Continue same treatment. Continue with symptomatic treatment. Resume home medication. Monitor labs and vitals. DVT and GI prophylaxis. Further recommendations as per clinical course of the patient Dictation was produced using [employer] dictation software. please excuse any grammatical, word or spelling errors. Objective - Vital Signs Vital signs: Vital Signs Temp 98.5 F 09/04/23 11:23 Pulse 121 H 09/04/23 11:23 Resp 20 09/04/23 11:23 BP 154/93 09/04/23 11:23 Pulse Ox 97 09/04/23 11:23 FiO2 Intake & Output 09/03/23 09/04/23 09/04/23 18:59 06:59 18:59 Intake Total 350 120 100 Output Total 200 Balance 150 120 100 Weight 60.781 kg Intake: Oral 350 120 100 Output: Urine 200 Other: Voiding Method Indwelling Catheter Indwelling Catheter Indwelling Catheter - Labs CBC & Chem 7: 09/04/23 09:47 09/03/23 07:56 Labs: Abnormal Lab Results - Last 24 Hours (Table) 09/03/23 09/03/23 09/04/23 Range/Units 16:38 20:08 05:59 RBC (3.80-5.40) m/uL Hgb (11.4-16.0) gm/dL Hct (34.0-46.0) % RDW (11.5-15.5) % Plt Count (150-450) k/uL Nucleated RBCs (0-0) /100 WBC POC Glucose (mg/dL) 176 H 166 H 175 H (70-110) mg/dL 09/04/23 09/04/23 Range/Units 09:47 11:31 RBC 2.87 L (3.80-5.40) m/uL Hgb 8.5 L (11.4-16.0) gm/dL Hct 25.3 L (34.0-46.0) % RDW 18.0 H (11.5-15.5) % Plt Count 23 L (150-450) k/uL Nucleated RBCs 1 H (0-0) /100 WBC POC Glucose (mg/dL) 188 H (70-110) mg/dL
[2023-09-04 16:24] LABS: Glucose,Whole Blood 180 mg/dL (70-110)
[2023-09-04 20:45] LABS: Glucose,Whole Blood 162 mg/dL (70-110)
[2023-09-04] MEDS: METOPROLOL TARTRATE 12.5 MG TAB PO SCH (20:58)
[2023-09-05 06:16] LABS: Glucose,Whole Blood 168 mg/dL (70-110)
--- NOTE | 2023-09-05 10:07 | CT ---
EXAM: CT Head Without Intravenous Contrast CLINICAL HISTORY: cva INCREASED APHASIA TECHNIQUE: Axial computed tomography images of the head/brain without intravenous contrast. CTDI is 49.1 mGy and DLP is 1138.4 mGy-cm. This CT exam was performed using one or more of the following dose reduction techniques: automated exposure control, adjustment of the mA and/or kV according to patient size, and/or use of iterative reconstruction technique. COMPARISON: 08/31/2023 IMPRESSION: Trace left holohemispheric acute subdural hematoma not cause significant mass-effect. Trace subarachnoid hemorrhage in the right frontal lobe. No herniation.
[2023-09-05 11:38] LABS: Glucose,Whole Blood 175 mg/dL (70-110)
--- NOTE | 2023-09-05 13:21 | P.DS ---
Providers Date of admission: 09/03/23 08:45 Expected date of discharge: 09/05/23 Attending physician: Kelvin Garcia Consults: 08/30/23 23:17 Consult Physician Routine Consulting Provider: Marilin Gonzalez Consult Reason/Comments: known Do you want consulting provider notified?: Yes 08/30/23 23:19 Consult Physician Routine Consulting Provider: Saulo Nowak Consult Reason/Comments: slurred speech Do you want consulting provider notified?: Yes 09/02/23 10:57 Consult Physician Routine Consulting Provider: Nilesh Barrientos Consult Reason/Comments: retention, hx of stent Do you want consulting provider notified?: Yes Primary care physician: Damien Fan [facility] Course: Discharge diagnoses; Nausea and vomiting Headaches Thrombocytopenia Acute transaminitis Anemia due to chemotherapy Symptomatic anemia Stage IV endometrial adenocarcinoma currently on oral chemo, cabozantinib Hypertension Hyperlipidemia Diabetes type 2 insulin-dependent History of PE Hypothyroidism History of ureteral stent placement Anxiety/depression Hospital course; Patient is a 53-year-old female with a known history of hypertension, hyperlipidemia, GERD, diabetes type 2 insulin-dependent, stage IV endometrial cancer diagnosed in 2009 with recurrence in 2014 currently in remission, history of PE, hypothyroidism, anxiety/depression and other medical problems presents to ER for nausea vomiting and headache. Patient has been following up outpatient hematology oncology and currently is on treatment for endometrial carcinoma. Patient was recently admitted a month ago for anemia and thrombocytopenia secondary to chemotherapy. Patient was not feeling well for the last few days. Denies any fever or chills. There is no complaint of chest pain or shortness of breath. Denies any abdominal pain. Patient is complaining of headache. Did complain of slurred speech. Denies any weakness of any extremity. Because of the symptoms, patient went to the ER Initial lab work done in the ER showed WBC 6, hemoglobin 8.4, platelet count 24 PT 11.2, INR 1, sodium 1 3, potassium 4.6, chloride 109, pulmonary rate 18, anion gap 11, creatinine 0.41, glucose 155, calcium 8.5, AST 167, ALT 39, alk p hos 414, troponin 0.012 EKG done in the ER showed heart rate of 125, no ST segment elevation or depression seen, no T-wave inversions seen. Chest x-ray done in the ER showed no acute cardiopulmonary process CT head done showed isodense mass in the proximal right temporal lobe, artifact is favored although mass is in the differential. Patient admitted to internal medicine service 08/31. Patient seen and examined. Repeat CT head done showed suspicion for small volume subarachnoid hemorrhage over the right frontal region, no CT evidence of enhancing intracranial metastasis. Blood work this morning showed WBC 10.8, hemoglobin 8.4, platelet count 20, sodium 138, potassium 3.6, BUN 7, creatinine 0.32. Complaining of dizziness, still has nausea but no vomiting 09/01. Patient seen and examined. Blood work done this morning showed WBC 7.7, hemoglobin 8.5, platelet count 16, sodium 130, potassium 3.6, BUN 5, creatinine 0.28.CT brain done on 08/31 showed stable appearance of the brain with findings again suspicious for small volume subarachnoid hemorrhage over the right frontal region. CT neck showed no dissection or pseudoaneurysm in the carotid or vertebral arteries. Nausea slightly improved. Hematology oncology recommends transfusing 5 unit of platelets 09/02. Patient seen and examined. Patient is very lethargic. Family at the bedside 09/03. Patient seen and examined. Blood work done this morning showed WBC 5.6, hemoglobin 8.5, platelet count 23,. Patient slightly more awake compared to yesterday, family states that the patient is trying to eat more compared to yesterday. 09/04. Patient seen and examined. Family meeting took place between hematology oncology, patient family and myself, decision was made that patient will be transition to hospice, patient being discharged to home with hospice. All arrangements have been made by hospice team PHYSICAL EXAMINATION: GENERAL: The patient is lethargic, chronically ill looking HEENT: Pupils are round and equally reacting to light. EOMI. No scleral icterus. No conjunctival pallor. Normocephalic, atraumatic. No pharyngeal erythema. No thyromegaly. CARDIOVASCULAR: S1 and S2 present. No murmurs, rubs, or gallops. Tachycardia PULMONARY: Chest is clear to auscultation, no wheezing or crackles. ABDOMEN: Soft, nontender, nondistended, normoactive bowel sounds. No palpable organomegaly. MUSCULOSKELETAL: No joint swelling or deformity. EXTREMITIES: No cyanosis, clubbing, or pedal edema. NEUROLOGICAL: Gross neurological examination did not reveal any focal deficits. SKIN: No rashes. Dictation was produced using dragon dictation software. please excuse any grammatical, word or spelling errors. Patient Condition at Discharge: Poor Plan - Discharge Summary New Discharge Prescriptions: Continue Insulin Aspart [NovoLOG Flexpen] 10 units SQ AC-TID PRN PRN Reason: Blood Sugar - High Omeprazole [PriLOSEC] 40 mg PO BID Biotin [Nmpg-Dext-Haptf] 10,000 mcg PO DAILY Ondansetron Odt [Zofran ODT] 4 mg PO Q6H PRN PRN Reason: Nausea And Vomiting Loperamide [Imodium] 2 mg PO Q4H PRN PRN Reason: Diarrhea lisinopriL [Prinivil] 20 mg PO DAILY Pioglitazone [Actos] 15 mg PO DAILY Insulin Glargine,Hum.rec.anlog [Lantus Solostar Pen] 27 units SQ HS Sucralfate [Carafate] 1 gm PO Q6H PRN PRN Reason: INDIGESTION/REFLUX SYMPTOMS Metoclopramide [Reglan] 10 mg PO Q6H PRN PRN Reason: Nausea And Vomiting amLODIPine [Norvasc] 2.5 mg PO HS Discharge Medication List Insulin Aspart [NovoLOG Flexpen] 10 units SQ AC-TID PRN 06/02/19 [History] Insulin Glargine,Hum.rec.anlog [Lantus Solostar Pen] 27 units SQ HS 03/28/22 [History] Omeprazole [PriLOSEC] 40 mg PO BID 03/28/22 [History] Pioglitazone [Actos] 15 mg PO DAILY 03/28/22 [History] lisinopriL [Prinivil] 20 mg PO DAILY 03/28/22 [History] Biotin [Xyie-Rixs-Fehmj] 10,000 mcg PO DAILY 07/30/23 [History] Metoclopramide [Reglan] 10 mg PO Q6H PRN 07/30/23 [History] Ondansetron Odt [Zofran ODT] 4 mg PO Q6H PRN 07/30/23 [History] Sucralfate [Carafate] 1 gm PO Q6H PRN 07/30/23 [History] amLODIPine [Norvasc] 2.5 mg PO HS 07/30/23 [History] Loperamide [Imodium] 2 mg PO Q4H PRN 08/31/23 [History] Follow up Appointment(s)/Referral(s): Damien Rodriguez [Primary Care Provider] - 1-2 days
--- NOTE | 2023-09-05 13:30 | P.PN ---
Subjective Progress Note Date: 09/05/23 Patient is a 53-year-old female with a known history of hypertension, hyperlipidemia, GERD, diabetes type 2 insulin-dependent, stage IV endometrial cancer diagnosed in 2009 with recurrence in 2014 currently in remission, history of PE, hypothyroidism, anxiety/depression and other medical problems presents to ER for nausea vomiting and headache. Patient has been following up outpatient hematology oncology and currently is on treatment for endometrial carcinoma. Patient was recently admitted a month ago for anemia and thrombocytopenia secondary to chemotherapy. Patient was not feeling well for the last few days. Denies any fever or chills. There is no complaint of chest pain or shortness of breath. Denies any abdominal pain. Patient is complaining of headache. Did complain of slurred speech. Denies any weakness of any extremity. Because of the symptoms, patient went to the ER Initial lab work done in the ER showed WBC 6, hemoglobin 8.4, platelet count 24 PT 11.2, INR 1, sodium 1 3, potassium 4.6, chloride 109, pulmonary rate 18, anion gap 11, creatinine 0.41, glucose 155, calcium 8.5, AST 167, ALT 39, alk phos 414, troponin 0.012 EKG done in the ER showed heart rate of 125, no ST segment elevation or depression seen, no T-wave inversions seen. Chest x-ray done in the ER showed no acute cardiopulmonary process CT head done showed isodense mass in the proximal right temporal lobe, artifact is favored although mass is in the differential. Patient admitted to internal medicine service 08/31. Patient seen and examined. Repeat CT head done showed suspicion for small volume subarachnoid hemorrhage over the right frontal region, no CT evidence of enhancing intracranial metastasis. Blood work this morning showed WBC 10.8, hemoglobin 8.4, platelet count 20, sodium 138, potassium 3.6, BUN 7, creatinine 0.32. Complaining of dizziness, still has nausea but no vomiting 09/01. Patient seen and examined. Blood work done this morning showed WBC 7.7, hemoglobin 8.5, platelet count 16, sodium 130, potassium 3.6, BUN 5, creatinine 0.28.CT brain done on 08/31 showed stable appearance of the brain with findings again suspicious for small volume subarachnoid hemorrhage over the right frontal region. CT neck showed no dissection or pseudoaneurysm in the carotid or v ertebral arteries. Nausea slightly improved. Hematology oncology recommends transfusing 5 unit of platelets 09/02. Patient seen and examined. Patient is very lethargic. Family at the bedside 09/03. Patient seen and examined. Blood work done this morning showed WBC 5.6, hemoglobin 8.5, platelet count 23,. Patient slightly more awake compared to yesterday, family states that the patient is trying to eat more compared to yesterday. 09/04. Patient seen and examined. Family meeting took place between hematology oncology, patient family and myself, decision was made that patient will be tr ansition to hospice, patient being discharged to home with hospice. All arrangements have been made by hospice team REVIEW OF SYSTEMS: Cannot be obtained as patient is lethargic PHYSICAL EXAMINATION: GENERAL: The patient is lethargic, chronically ill looking HEENT: Pupils are round and equally reacting to light. EOMI. No scleral icterus. No conjunctival pallor. Normocephalic, atraumatic. No pharyngeal erythema. No thyromegaly. CARDIOVASCULAR: S1 and S2 present. No murmurs, rubs, or gallops. Tachycardia PULMONARY: Chest is clear to auscultation, no wheezing or crackles. ABDOMEN: Soft, nontender, nondistended, normoactive bowel sounds. No palpable organomegaly. MUSCULOSKELETAL: No joint swelling or deformity. EXTREMITIES: No cyanosis, clubbing, or pedal edema. NEUROLOGICAL: Gross neurological examination did not reveal any focal deficits. SKIN: No rashes. Assessment and plan Nausea and vomiting Headaches Thrombocytopenia Acute transaminitis Anemia due to chemotherapy Symptomatic anemia Stage IV endometrial adenocarcinoma currently on oral chemo, cabozantinib Hypertension Hyperlipidemia Diabetes type 2 insulin-dependent History of PE Hypothyroidism History of ureteral stent placement Anxiety/depression Monitor vital signs Monitor CBC Monitor CMP Continue antiemetics Continue IV Protonix Currently on cabozantinib 40 mg daily for her Endometrial carcinoma in outpatient setting which will be holding inpatient For her chemo induced bicytopenia, monitor CBC transfuse to maintain Hgb >7 and plt >20. hematology oncology following, Neurology following Hospice consulted, family planning to take patient home with hospice in the morning Labs and medication were reviewed.. Continue same treatment. Continue with symptomatic treatment. Resume home medication. Monitor labs and vitals. DVT and GI prophylaxis. Further recommendations as per clinical course of the patient Dictation was produced using [employer] dictation software. please excuse any gra mmatical, word or spelling errors. Objective - Vital Signs Vital signs: Vital Signs Temp 98.2 F 09/05/23 12:00 Pulse 110 H 09/05/23 12:00 Resp 18 09/05/23 12:00 BP 130/84 09/05/23 12:00 Pulse Ox 96 09/05/23 12:00 FiO2 Intake & Output 09/04/23 09/05/23 09/05/23 18:59 06:59 18:59 Intake Total 125 10 Output Total 500 600 150 Balance -375 -600 -140 Intake: Oral 125 10 Output: Urine 500 600 150 Other: Voiding Method Indwelling Catheter Indwelling Catheter Indwelling Catheter - Labs CBC & Chem 7: 09/04/23 09:47 09/03/23 07:56 Labs: Abnormal Lab Results - Last 24 Hours (Table) 09/04/23 09/04/23 09/05/23 Range/Units 16:22 20:44 06:15 POC Glucose (mg/dL) 180 H 162 H 168 H (70-110) mg/dL 09/05/23 Range/Units 11:37 POC Glucose (mg/dL) 175 H (70-110) mg/dL
--- NOTE | 2023-09-05 14:50 | P.PN ---
Subjective Progress Note Date: 09/05/23 Patient initially seen by Dr. Saulo Nowak. Please refer to his note for details. Patient is a 53-year-old female with stage IV endometrial cancer with metastasis to the liver and bone. Patient was brought to the hospital on 08/30/2023 because she woke up with a severe headache, throwing up. Patient was found to have subarachnoid hemorrhage. MRI of the brain was recommended. However patient has a IVC filter placed at [facility], and could not get clearance for MRI. I was waiting for MRI to get done before follow-up patient. However last night nurse reported at 10:25 PM because patient was getting more aphasic since dinnertime. She was not able to say much more than "okay" when asked questions. Family had made decision to make her hospice. However family wanted a repeat CT head. It was ordered. At present patient is on fentanyl and Dilaudid. When the sedation is decreased, patient is in severe pain, severe headache and her whole body hurts. She cannot turn her head because of the headache. She then starts throwing up. Patient is comfortable with fentanyl and Dilaudid. Some of the workup during this hospital visit consisted of: Her hemoglobin has dropped to 6.6-->8.5 AST of 167 ALT is 39. Platelets on admission was 24,000, came down to the 16,000 on 09/02/2023. Patient was given platelet transfusion, it went up to 41, but now down to 23 again. I reviewed the rest of the lab workup CT of the head is reported as there is an isodense area in the proximal right temporal lobe uncertain etiology. Artifact is favored although a mass within the differential. Additional evaluation with MRI with contrast is recommended. Remaining portion of the brain appears unremarkable. I personally reviewed the CT and I see what radiologist reported an uncertain exact etiology Repeat CT head and showed ?suspicion for small subarachnoid hemorrhage over the right frontal region. No CT evidence of enhancing intrcranial metastatsis. I reviewed CT head and not convinced with subarachnoid. Repeat CT head on 09/01/23: Stable Ct appearanace of the brain with finding again suspicious for small volume subarachnoid hemorrhage over the right frontal region. CTA head and neck: No dissectio or pseudoaneurysm. Heterogenous attenuation pattern throughout the visualized osseous structure which can be seen with mixed lytic/blastic osseous metastatic disease. Objective - Vital Signs Vital signs: Vital Signs Temp 98.2 F 09/05/23 12:00 Pulse 110 H 09/05/23 12:00 Resp 18 09/05/23 12:00 BP 130/84 09/05/23 12:00 Pulse Ox 96 09/05/23 12:00 FiO2 Intake & Output 09/04/23 09/05/23 09/05/23 18:59 06:59 18:59 Intake Total 125 10 Output Total 500 600 150 Balance -375 -600 -140 Intake: Oral 125 10 Output: Urine 500 600 150 Other: Voiding Method Indwelling Catheter Indwelling Catheter Indwelling Catheter - Exam Detailed examination deferred. Patient is obtunded. Her head is deviated towards the right. No obvious seizure-like activity noted. - Labs CBC & Chem 7: 09/04/23 09:47 09/03/23 07:56 Labs: Abnormal Lab Results - Last 24 Hours (Table) 09/04/23 09/04/23 09/05/23 Range/Units 16:22 20:44 06:15 POC Glucose (mg/dL) 180 H 162 H 168 H (70-110) mg/dL 09/05/23 Range/Units 11:37 POC Glucose (mg/dL) 175 H (70-110) mg/dL Assessment and Plan Assessment: This is a 53-year-old woman with stage IV endometrial cancer who is having bilateral frontal headache, intractable nausea vomiting with reported slurred speech. CT head revealed subdural hematoma as well as subarachnoid hemorrhage. Likely from symptomatic thrombocytopenia. Family denies any history of falls. No aneurysm noted on CTA of head and neck. Probable due to significant thrombocytopenia Stage IV endometrial cancer (mets to liver and bone) and patient received radiation therapy chemotherapy and she continues to be on oral chemotherapy Mild transminitis due to mets to liver Tobacco use Platelets on admission was 24,000, came down to the 16,000 on 09/02/2023. Patient was given platelet transfusion, it went up to 41, but now down to 23 again. Plan: MRI of the brain with and without could not be completed because patient has IVC filter placed and could not get clearance. Repeat CT head was performed which revealed trace left holohemispheric acute subdural hematoma not cause significant mass effect. Trace subarachnoid hemorrhage in the right frontal lobe. No herniation. I personally reviewed CT head agree with the findings. Appears slightly more prominent as compared to the last CT. I reviewed CT head with the family. Discussed about the subdural hematoma, subarachnoid hemorrhage and the possible causes. Patient currently not on antiplatelets or anticoagulation and recommend to avoid. For significant thrombocytopenia will defer management to primary and Oncology team. Oncology is consulted Patient is on Reglan, Compazine. Pain she is on Dilaudid and fentanyl as needed. Will defer the rest of the medical management to primary team and other spec ialists Condition is very guarded. Family has decided patient to be on hospice with comfort care. We will sign off. Please reconsult if any questions.
[2023-09-05 16:18] LABS: Glucose,Whole Blood 147 mg/dL (70-110)
[2023-09-05 20:17] LABS: Glucose,Whole Blood 149 mg/dL (70-110)
[2023-09-06 06:00] LABS: Glucose,Whole Blood 160 mg/dL (70-110)
[2023-09-06 08:00] VITALS: TEMP 97.7
--- NOTE | 2023-09-06 09:57 | P.PN ---
Subjective Progress Note Date: 09/06/23 At todays visit, pt is lethargic and easily falls asleep. She is not answering questions during visit but will open eyes to verbal and tactile stimuli. Family states she has talked very little since last night. Reports she has been having increased right sided neck pain and headache. MRI brain was not able to be obtained due to IVC filter compatibility. Repeat CT head revealed trace left holohemispheric acute subdural hematoma with no significant mass effect. Trace subarachnoid hemorrhage in the right frontal lobe with no herniation noted. Had a long discussion today with family regarding imaging results, her cancer history/and noted progression, prognosis, as well as comfort care measures. At t his time, we agree with family's decision for hospice/comfort care, as patient condition has not improved and is very weak and is not a candidate for systemic treatment. All questions were answered to their satisfaction. Objective - Vital Signs Vital signs: Vital Signs Temp 97.9 F 09/05/23 08:00 Pulse 126 H 09/05/23 08:00 Resp 16 09/05/23 08:00 BP 126/68 09/05/23 08:00 Pulse Ox 97 09/05/23 08:00 FiO2 Intake & Output 09/04/23 09/05/23 09/05/23 18:59 06:59 18:59 Intake Total 125 10 Output Total 500 600 150 Balance -375 -600 -140 Intake: Oral 125 10 Output: Urine 500 600 150 Other: Voiding Method Indwelling Catheter Indwelling Catheter Indwelling Catheter - Labs CBC & Chem 7: 09/04/23 09:47 09/03/23 07:56 Labs: Abnormal Lab Results - Last 24 Hours (Table) 09/04/23 09/04/23 09/04/23 Range/Units 09:47 16:22 20:44 Plt Count 23 L (150-450) k/uL Nucleated RBCs 1 H (0-0) /100 WBC POC Glucose (mg/dL) 180 H 162 H (70-110) mg/dL 09/05/23 09/05/23 Range/Units 06:15 11:37 Plt Count (150-450) k/uL Nucleated RBCs (0-0) /100 WBC POC Glucose (mg/dL) 168 H 175 H (70-110) mg/dL Assessment and Plan (1) Slurred speech Current Visit: Yes Status: Acute Code(s): R47.81 - SLURRED SPEECH SNOMED Code(s): 357636251 (2) Subarachnoid hemorrhage Current Visit: Yes Status: Acute Code(s): I60.9 - NONTRAUMATIC SUBARACHNOID HEMORRHAGE, UNSPECIFIED SNOMED Code(s): 732383711 (3) Weakness Current Visit: Yes Status: Acute Code(s): R53.1 - WEAKNESS SNOMED Code(s): 07557473 (4) Endometrial adenocarcinoma Current Visit: No Status: Acute Priority: High Code(s): C54.1 - MALIGNANT NEOPLASM OF ENDOMETRIUM SNOMED Code(s): 802850702 Plan: Ms. Urrutia is a very pleasant 53 yo female with history of metastatic uterine cancer, s/p multiple lines of therapy, most recently on cabozantinib, presented for slurred speech. initial CT head w/o reviewed, small lesion of unclear afsaneh ology, artifact vs malignant - MRI brain ordered to better characterize change seen on CT. However, due IVC filter scan was not able to be obtained - CT scan brain with/without contrast showed suspicion for small volume subarachnoid hemorrhage over the right frontal region. With no CT evidence of enhancing intracranial metastasis and no mass effect or midline shift. - Hold cabozantinib, pt recently stopped this and planned on new therapy once arrangements completed - Chemo induced bicytopenia, continue to monitor CBC - Monitor for bleeding, currently no signs of acute bleeding *At todays visit, pt is lethargic and easily falls asleep. She is not answering questions during visit but will open eyes to verbal and tactile stimuli. Family states she has talked very little since last night. Reports she has been having increased right sided neck pain and headache. MRI brain was not able to be obtained due to IVC filter compatibility. Repeat CT head revealed trace left holohemispheric acute subdural hematoma with no significant mass effect. Trace subarachnoid hemorrhage in the right frontal lobe with no herniation noted. Had a long discussion today with family regarding imaging results, her cancer history/and noted progression, prognosis, as well as comfort care measures. At this time, we agree with family's decision for hospice/comfort care, as patient condition has not improved and is very weak and is not a candidate for systemic treatment. All questions were answered to their satisfaction. Hospice team has been consulted and met with family, plan is to discharge home later today or tomorrow once hospice services are set in place. Please do not hesitate to reach out to our service for any additional questions or concerns
[2023-09-06 12:28] VITALS: RESP 20
--- NOTE | 2023-09-06 13:32 | P.DS ---
Providers Date of admission: 09/03/23 08:45 Expected date of discharge: 09/06/23 Attending physician: Kelvin Garcia Consults: 08/30/23 23:17 Consult Physician Routine Consulting Provider: Marilin Gonzalez Consult Reason/Comments: known Do you want consulting provider notified?: Yes 08/30/23 23:19 Consult Physician Routine Consulting Provider: Saulo Nowak Consult Reason/Comments: slurred speech Do you want consulting provider notified?: Yes 09/02/23 10:57 Consult Physician Routine Consulting Provider: Nilesh Barrientos Consult Reason/Comments: retention, hx of stent Do you want consulting provider notified?: Yes Primary care physician: Damien Fan [facility] Hospital Course: Discharge diagnoses; Nausea and vomiting Headaches Thrombocytopenia Acute transaminitis Anemia due to chemotherapy Symptomatic anemia Stage IV endometrial adenocarcinoma currently on oral chemo, cabozantinib Hypertension Hyperlipidemia Diabetes type 2 insulin-dependent History of PE Hypothyroidism History of ureteral stent placement Anxiety/depression Hospital course; Patient is a 53-year-old female with a known history of hypertension, hyperlipidemia, GERD, diabetes type 2 insulin-dependent, stage IV endometrial cancer diagnosed in 2009 with recurrence in 2014 currently in remission, history of PE, hypothyroidism, anxiety/depression and other medical problems presents to ER for nausea vomiting and headache. Patient has been following up outpatient hematology oncology and currently is on treatment for endometrial carcinoma. Patient was recently admitted a month ago for anemia and thrombocytopenia secondary to chemotherapy. Patient was not feeling well for the last few days. Denies any fever or chills. There is no complaint of chest pain or shortness of breath. Denies any abdominal pain. Patient is complaining of headache. Did complain of slurred speech. Denies any weakness of any extremity. Because of the symptoms, patient went to the ER Initial lab work done in the ER showed WBC 6, hemoglobin 8.4, platelet count 24 PT 11.2, INR 1, sodium 1 3, potassium 4.6, chloride 109, pulmonary rate 18, anion gap 11, creatinine 0.41, glucose 155, calcium 8.5, AST 167, ALT 39, alk ph os 414, troponin 0.012 EKG done in the ER showed heart rate of 125, no ST segment elevation or depression seen, no T-wave inversions seen. Chest x-ray done in the ER showed no acute cardiopulmonary process CT head done showed isodense mass in the proximal right temporal lobe, artifact is favored although mass is in the differential. Patient admitted to internal medicine service 08/31. Patient seen and examined. Repeat CT head done showed suspicion for small volume subarachnoid hemorrhage over the right frontal region, no CT evidence of enhancing intracranial metastasis. Blood work this morning showed WBC 10.8, hemoglobin 8.4, platelet count 20, sodium 138, potassium 3.6, BUN 7, creatinine 0.32. Complaining of dizziness, still has nausea but no vomiting 09/01. Patient seen and examined. Blood work done this morning showed WBC 7.7, hemoglobin 8.5, platelet count 16, sodium 130, potassium 3.6, BUN 5, creatinine 0.28.CT brain done on 08/31 showed stable appearance of the brain with findings again suspicious for small volume subarachnoid hemorrhage over the right frontal region. CT neck showed no dissection or pseudoaneurysm in the carotid or vertebral arteries. Nausea slightly improved. Hematology oncology recommends transfusing 5 unit of platelets 09/02. Patient seen and examined. Patient is very lethargic. Family at the bedside 09/03. Patient seen and examined. Blood work done this morning showed WBC 5.6, hemoglobin 8.5, platelet count 23,. Patient slightly more awake compared to yesterday, family states that the patient is trying to eat more compared to yesterday. 09/04. Patient seen and examined. Family meeting took place between hematology oncology, patient family and myself, decision was made that patient will be transition to hospice, patient being discharged to home with hospice. All arrangements have been made by hospice team 09/05. Patient seen and examined. Being discharged home with hospice today PHYSICAL EXAMINATION: GENERAL: The patient is lethargic, chronically ill looking HEENT: Pupils are round and equally reacting to light. EOMI. No scleral icterus. No conjunctival pallor. Normocephalic, atraumatic. No pharyngeal erythema. No thyromegaly. CARDIOVASCULAR: S1 and S2 present. No murmurs, rubs, or gallops. Tachycardia PULMONARY: Chest is clear to auscultation, no wheezing or crackles. ABDOMEN: Soft, nontender, nondistended, normoactive bowel sounds. No palpable organomegaly. MUSCULOSKELETAL: No joint swelling or deformity. EXTREMITIES: No cyanosis, clubbing, or pedal edema. NEUROLOGICAL: Gross neurological examination did not reveal any focal deficits. SKIN: No rashes. Patient Condition at Discharge: Poor Plan - Discharge Summary New Discharge Prescriptions: Continue Insulin Aspart [NovoLOG Flexpen] 10 units SQ AC-TID PRN PRN Reason: Blood Sugar - High Omeprazole [PriLOSEC] 40 mg PO BID Biotin [Qthc-Rokm-Qnoci] 10,000 mcg PO DAILY Ondansetron Odt [Zofran ODT] 4 mg PO Q6H PRN PRN Reason: Nausea And Vomiting Loperamide [Imodium] 2 mg PO Q4H PRN PRN Reason: Diarrhea lisinopriL [Prinivil] 20 mg PO DAILY Pioglitazone [Actos] 15 mg PO DAILY Insulin Glargine,Hum.rec.anlog [Lantus Solostar Pen] 27 units SQ HS Sucralfate [Carafate] 1 gm PO Q6H PRN PRN Reason: INDIGESTION/REFLUX SYMPTOMS Metoclopramide [Reglan] 10 mg PO Q6H PRN PRN Reason: Nausea And Vomiting amLODIPine [Norvasc] 2.5 mg PO HS Discharge Medication List Insulin Aspart [NovoLOG Flexpen] 10 units SQ AC-TID PRN 06/02/19 [History] Insulin Glargine,Hum.rec.anlog [Lantus Solostar Pen] 27 units SQ HS 03/28/22 [History] Omeprazole [PriLOSEC] 40 mg PO BID 03/28/22 [History] Pioglitazone [Actos] 15 mg PO DAILY 03/28/22 [History] lisinopriL [Prinivil] 20 mg PO DAILY 03/28/22 [History] Biotin [Cvzb-Jllm-Ramqr] 10,000 mcg PO DAILY 07/30/23 [History] Metoclopramide [Reglan] 10 mg PO Q6H PRN 07/30/23 [History] Ondansetron Odt [Zofran ODT] 4 mg PO Q6H PRN 07/30/23 [History] Sucralfate [Carafate] 1 gm PO Q6H PRN 07/30/23 [History] amLODIPine [Norvasc] 2.5 mg PO HS 07/30/23 [History] Loperamide [Imodium] 2 mg PO Q4H PRN 08/31/23 [History] Follow up Appointment(s)/Referral(s): Damien Rodriguez [Primary Care Provider] - 1-2 days (Please follow up with hospice and follow their directions regarding follow up.) Patient Instructions/Handouts: Hospice (DC) Discharge Disposition: HOME WITH HOSPICE
[2023-09-06 16:45] VITALS: BP 117/78; PULSE 115
== END 2023-09-06 17:10 | disposition hospice, home (50) | DRG 65 ==
LOC: EC 17:11 → 3SCARD 23:18 → OBSVTOIN 09-03 08:45
PROVIDERS: ADMIT Hospitalist; ATTEND Hospitalist
PROC: 30233N1 Transfusion of Nonautologous Red Blood Cells into Peripheral Vein, Percutaneous Approach (ICD-10-PCS; principal; 2023-08-31)
PROC: 30233R1 Transfusion of Nonautologous Platelets into Peripheral Vein, Percutaneous Approach (ICD-10-PCS; 2023-09-02)
DX: I62.01 Nontraumatic acute subdural hemorrhage (principal); C78.7 Secondary malignant neoplasm of liver and intrahepatic bile duct; C79.51 Secondary malignant neoplasm of bone; R47.01 Aphasia; C54.1 Malignant neoplasm of endometrium; D64.81 Anemia due to antineoplastic chemotherapy; D69.59 Other secondary thrombocytopenia; E86.0 Dehydration; E11.9 Type 2 diabetes mellitus without complications; E03.9 Hypothyroidism, unspecified; F32.A Depression, unspecified; I10 Essential (primary) hypertension; E04.2 Nontoxic multinodular goiter; Z79.4 Long term (current) use of insulin; Z51.5 Encounter for palliative care; Z66 Do not resuscitate; R47.1 Dysarthria and anarthria; R33.9 Retention of urine, unspecified; E78.5 Hyperlipidemia, unspecified; K21.9 Gastro-esophageal reflux disease without esophagitis; F40.240 Claustrophobia; T45.1X5A Adverse effect of antineoplastic and immunosuppressive drugs, initial encounter; Z95.828 Presence of other vascular implants and grafts; Z79.84 Long term (current) use of oral hypoglycemic drugs; Z79.899 Other long term (current) drug therapy; Z87.891 Personal history of nicotine dependence; Z86.711 Personal history of pulmonary embolism; Z92.3 Personal history of irradiation; Z88.5 Allergy status to narcotic agent; Z88.8 Allergy status to other drugs, medicaments and biological substances
CPT/HCPCS: 36415; 36430; 70450; 70470; 70496; 70498; 71045; 71046; 80053; 80320; 82550; 83036; 83690; 83735; 84100; 84484; 85025; 85027; 85610; 85730; 86850; 86900; 86901; 86920; 93005; 94640; 94760; 96361; 96374; 96375; 96376; 99291